=== PATIENT | male | born 1945 | race African-American/Black ===

== ENCOUNTER 2016-08-28 08:28 | Inpatient (IN) ==
[2016-08-28] MEDS ORDERED: Ondansetron 4 MG/2 ML VIAL IVP PRN (09:28)
[2016-08-28] MEDS ORDERED: ceFAZolin 1,000 MG in D5% in Water (Mini-Bag+) 100 ML IVPB ONE (09:32)
[2016-08-28 10:07] LABS: INR 1.1; Prothrombin Time 12.4 Seconds (9.4-12.1)
[2016-08-28 10:09] LABS: Activated Partial Thrombo Time 34.2 Seconds (26.0-36.0); Basophils # 0.1 K/mcL (0.0-0.2); Basophils % 0.6 %; Eosinophils # 0.3 K/mcL (0.0-0.6); Eosinophils % 2.9 %; Hematocrit 37.9 % (37.5-50.1); Hemoglobin 11.7 g/dL (12.9-16.9); Immature Granulocytes % 0.6 % (0-4); Lymphocytes # 1.5 K/mcL (0.6-4.6); Lymphocytes % 16.5 %; Mean Corpuscular HGB Conc 30.9 g/dL (31.6-35.5); Mean Corpuscular Hemoglobin 26.6 pg (28.0-33.3); Mean Corpuscular Volume 86.1 fL (83.0-100.0); Mean Platelet Volume 9.2 fL (9.4-12.4); Monocytes # 0.9 K/mcL (0.0-1.3); Monocytes % 10.4 %; Neutrophils # 6.1 K/mcL (1.6-8.9); Platelet Count 231 K/mcL (140-400)
[2016-08-28 10:18] LABS: BUN/Creatinine Ratio 23 (6-26); Blood Urea Nitrogen 19 mg/dL (8-26); Calcium 9.4 mg/dL (8.6-10.8); Carbon Dioxide 27 mEq/L (19-29); Chloride 102 mEq/L (98-109); Glucose 134 mg/dL (70-99); Osmolality,Calculated 294 (280-300); Potassium 3.7 mEq/L (3.5-4.5); Sodium 140 mEq/L (136-145); eGFR For African Americans > 60 (> 60); eGFR For Non-African Americans > 60 (> 60)
[2016-08-28] MEDS ORDERED: *HR* OxyCODONE/APAP 5/325 TABLET PO PRN (12:05)
[2016-08-28] MEDS ORDERED: *HR* OxyCODONE ER (12 HR) 10 MG TABLET PO PRN (12:05)
[2016-08-28] MEDS ORDERED: D5% in Water 1,000 ML IV PRN (12:07)
[2016-08-28] MEDS ORDERED: Dextrose Gel 15 GM PO PRN ×2 (12:07)
[2016-08-28] MEDS ORDERED: *HR* Dextrose 50 % in Water (Syg) 50 ML SYRINGE IVP PRN (12:07)
--- NOTE | 2016-08-28 12:17 | Internal Medicine Consult Note ---
<Kajal Alexander - Last Filed: 08/28/16 12:30> Date of Encounter: 08/28/16 Time of Encounter: 11:00 Internal Medicine - CN: HPI - Data of Consult Consult date: 08/28/16 Requesting Physician: Thomas Hou Jr MD - Consult Narrative Reason for consult: medical managment History of present illness: Mr. Ramirez is a 71 year old male past medical history of diabetes which is diet controlled hypertension hyperlipidemia coronary artery disease GI bleed. Patient has been experiencing numbness tingling, pain to lower extremities as well as spastic gait approximately 2 years he does use a cane to help him ambulate denies any recent falls. He was seen by Dr. Hou today results from MRI of cervical spine revealed multi level degenerative disc disease which is exacerbating congenitally narrowed cervical spinal canal. He has severe spinal cord compression C3-4 and C4-5. He is to undergo cervical fusion on Sunday and hospitalist services were consulted for medical management. Presently the patient denies any pain or discomfort he is hemodynamically stable. He does have a past history of GI bleed which seems to be stable at this time she denies any hematemesis melena or hematochezia. He also has a history of hypertension which seems to be stable at this time. He has a history of CAD with occlusions no stent placements. He denies any chest pain or shortness of breath at this time. He is at a significant risk for cardiovascular event perioperative, we will consult cardiology for their assessment prior to surgery. I reviewed his case with he agrees with the plan. - Constitutional Constitutional: weakness - Cardiovascular Cardiovascular ROS IM: as per HPI - Respiratory Respiratory: as per HPI - Gastrointestinal Gastrointestinal: as per HPI - Musculoskeletal Musculoskeletal ROS IM: muscle weakness, numbness, tingling - Neurological Neurological ROS: abnormal gait, weakness Past Med Surg Social Fam HX - Past Medical History Medical history: arthritis, coronary artery disease, GERD, GI bleed, hyperlipidemia, hypertension Psychiatric history: no psych history - Past Surgical History Surgical History: orthopedic, other - Social History Smoking Status: Never smoker Smokeless Tobacco Status: No Alcohol use: none Drug use: none - Family History Mother Living Status: Internal Medicine - CN: Meds OxyCODONE ER (12 HR) [OxyCONTIN] 10 mg PO Q12HR PRN 06/12/15 [History] Amlodipine Besylate 10 mg PO DAILY 04/02/16 [History] Atorvastatin [Lipitor] 40 mg PO HS 04/02/16 [History] Lisinopril/Hydrochlorothiazide [Zestoretic 20-12.5 mg Tablet] 2 tab PO DAILY 11/12 [History] Metoprolol XL (24 HR) Succ [Toprol Xl] 50 mg PO DAILY 04/02/16 [History] Oxycodone HCl/Acetaminophen [Percocet 5-325 mg Tablet] 1 tab PO Q6H PRN [History] Pantoprazole Sodium [Protonix] 40 mg PO Q12H #60 tablet. 04/04/16 [Rx] Sucralfate [Carafate] 1 gm PO TIDAC 30 Days 04/04/16 [Rx] Aspirin 81 mg PO DAILY 08/16/16 [History] Allergies Iodinated Contrast Media - Oral and [Iodinated Contrast Media - IV Dye] Allergy (Verified 05/17/16 12:58) Hives pravastatin Allergy (Verified 08/16/16 09:28) See Comments tachycardia pregabalin [From Lyrica] Adverse Reaction (Verified 08/16/16 09:28) See Comments strange thoughts Internal Medicine - CN: Exam - Constitutional Vitals: Pulse Resp BP Pulse Ox 83 18 150/90 94 L 08/28/16 10:00 08/28/16 10:00 08/28/16 10:00 08/28/16 10:00 General appearance IM: Present: A&O X 3 - Head Head exam: Present: atraumatic, normocephalic - Eye Eye exam: Present: EOMI, PERRL - ENT ENT exam: Present: mucous membranes moist - Respiratory Respiratory exam: Present: CTAB - Cardiovascular Cardiovascular exam IM: Present: RRR, +S1, +S2 - GI/Abdominal GI/Abdominal exam IM: Present: normal bowel sounds, soft - Neurological Exam Neurological exam: Present: alert, altered, CN II-XII intact, oriented X3 - Psychiatric Psychiatric exam: Present: flat affect Internal Medicine - CN: Reslt - Labs CBC & Chem 7: 08/28/16 09:49 08/28/16 09:49 Labs: Short CBC 08/28/16 Range/Units 09:49 WBC 8.9 (4.3-11.1) K/mcL Hgb 11.7 L (12.9-16.9) g/dL Hct 37.9 (37.5-50.1) % Plt Count 231 (140-400) K/mcL Neutrophils # 6.1 (1.6-8.9) K/mcL BMP 08/28/16 09:49 Sodium 140 Potassium 3.7 Chloride 102 Carbon Dioxide 27 BUN 19 Creatinine 0.81 Glucose 134 H Calcium 9.4 - ABG Interpretation ABG results: PT/INR, D-dimer PT 12.4 Seconds (9.4-12.1) H 08/28/16 09:49 - EKG Data EKG shows normal: sinus rhythm, ST-T waves Rate: normal - EKG Data Prior EKG available for review: yes When compared to previous EKG: there is no significant change EKG comments: 08/28/16 12:[address] Crawford- noted first degree AV block - Impressions Impressions Chest X-Ray 08/28/16 09:28 IMPRESSION: No acute process. D/ / Jc Olvera MD / Jc Olvera MD Interpreting Provider: Jc Olvera MD - Assessment and Plan (1) Spinal stenosis in cervical region Current Visit: Yes Status: Acute Assessment and plan: 1 patient has been experiencing increasing numbness tingling pain as well as spastic gait approximately 2 years- seen by Dr. Hou's increasing spinal stenosis-with spinal cord compression at C3-4 and C4-5. He is to undergo spinal surgery per Dr. Hou. We will continue with current pain medication will obtain preoperative labs chest x-ray EKG. We will consult cardiology due to history of CAD. (2) Diabetes mellitus Current Visit: Yes Status: Acute Assessment and plan: 1 patient states last A1c was 6.5 he is diet controlled at this time. 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 We will continue with beta carmina and aspirin and statin timoteo. 2 we will consult cardiology for cardiac clearance prior to surgery 3 cardiac diet 4 continue his cardiac monitoring Qualifiers: [place] vs. transplanted heart: [place] heart Qualified Code(s): I25.10 - Atherosclerotic heart disease of [place] coronary artery without angina pectoris (4) Hypertension Current Visit: No Status: Chronic Assessment and plan: 1 we will continue with metoprolol and lisinopril dose to maintain systolic less than 140 Qualifiers: Hypertension type: essential hypertension Qualified Code(s): I10 - Essential (primary) hypertension (5) DVT prophylaxis Current Visit: Yes Status: Acute Assessment and plan: [address] SCDs due to impending spinal surgery Consult Discharge Plan - Plan Referrals: Jina Redman MD [Primary Care Provider] - <Parvez Crawford - Last Filed: 08/28/16 20:54> Date of Encounter: 08/28/16 - Attending Attestation I examined this patient and my medical decision-making was reviewed with the RECORD CLERK/PA/Advanced Practice Nurse/Resident Physician. I agree with the documented findings, disposition and treatment plan as described except to the extent set forth below. Patient has severe cervical spine central canal stenosis with spinal cord compression and reports difficulty ambulating and has been going on for weeks. On exam he is in no acute distress heart regular rate and rhythm S1-S2. Muscle strength 5/5 in both upper and lower extremities. My review of his EKG shows normal sinus rhythm at 62 bpm first-degree AV block. We will consult cardiology for cardiac clearance preop. We will manage his medical conditions pre-and postoperatively. Internal Medicine - CN: HPI - Data of Consult Requesting Physician: Thomas Hou Jr MD - Consult Narrative History of present illness: Mr. Ramirez is a 71 year old male Internal Medicine - CN: Exam - Constitutional Vitals: Temp Pulse Resp BP Pulse Ox 98.1 F 89 18 155/85 96 08/28/16 20:00 08/28/16 20:00 08/28/16 20:00 08/28/16 20:00 08/28/16 20:00 Internal Medicine - CN: Reslt - Labs CBC & Chem 7: 08/28/16 09:49 08/28/16 09:49 Labs: Short CBC 08/28/16 Range/Units 09:49 WBC 8.9 (4.3-11.1) K/mcL Hgb 11.7 L (12.9-16.9) g/dL Hct 37.9 (37.5-50.1) % Plt Count 231 (140-400) K/mcL Neutrophils # 6.1 (1.6-8.9) K/mcL BMP 08/28/16 09:49 Sodium 140 Potassium 3.7 Chloride 102 Carbon Dioxide 27 BUN 19 Creatinine 0.81 Glucose 134 H Calcium 9.4 - ABG Interpretation ABG results: PT/INR, D-dimer PT 12.4 Seconds (9.4-12.1) H 08/28/16 09:49 - Impressions Impressions Chest X-Ray 08/28/16 09:28
--- NOTE | 2016-08-28 13:21 | Cardiology Consult Note ---
<Roverto Thomas - Last Filed: 08/28/16 13:55> Date of Encounter: 08/28/16 Time of Encounter: 13:16 Assessment and Plan (1) Preoperative cardiovascular examination Current Visit: Yes Status: Acute - patient evaluated for possible spinal surgery for spinal compression - multiple comorbidities including CAD, PVD, HTN, HLD, DM, and former smoker - ECHO 02/18/2015: EF 50-55%, with hypokinesis of basal inferior wall and basal- mid inferolateral wall with mild concentric LVH and diastolic dysfunction. No siginficant valvular dysfunction - Stress Nuclear 02/18/2015: large myocardial infarction throughout the inferior and inferolateral yao with mild eve-infarct ischemia - SABINA 05/24/2016: left 0.87 and right 1.22 - Report of left heart catheterization 07/26/[address] Garcia ([facility]) with 3V CAD with an occluded RCA and occluded LCX with collateral formation and failed PCI attempt of the LCX FRAMING CONSULTANT - EKG is normal sinus revealing artial enlargement without ischemic changes - patient is cleared for surgery (2) CAD (coronary artery disease), [place] coronary artery Current Visit: No Status: Acute - LHC performed [address] Garcia ([facility] bill peddler) with 3V CAD with an occluded RCA and occluded LCX with collateral formation and failed PCI attempt of the LCX FRAMING CONSULTANT - patient denies chest pain at rest or with exertion however severely limited due to claudication and spinal cord compression Qualifiers: [place] vs. transplanted heart: [place] heart Associated angina: angina presence unspecified Qualified Code(s): I25.10 - Atherosclerotic heart disease of [place] coronary artery without angina pectoris (3) Peripheral vascular disease Current Visit: Yes Status: Acute - SABINA 05/24/2016: left 0.87 and right 1.22 - follow up as discussed Discussion w patient/family: The assessment and plan as outlined above was discussed with the patient and/or family members who expressed understanding and agreement. All questions were answered. Thank you for involving us in the care of your patient. Please call with any questions. History of Present Illness Consult date: 08/28/16 Requesting physician: Kajal Alexander Consult reason: Surgical preop Chief complaint: spinal cord compression History of present illness: Mr. Ramirez is a 71 year old male with past medical history of hypertension, hyperlipidemia, diabetes (diet controlled), former smoker (quit 13 years ago), PVD, and CAD without stents presents with leg weakness and numbness. Has a scheduled spinal surgery on SundayAug.30 and cardiology was consulted for surgical clearance. Patient has known CAD without stents per report obtained from [facility] Dr. Garcia. He denies any chest discomfort, chest tightness, or shortness of breath at rest or on exertion. He has limited physical activity secondary to spinal cord compression and claudication. He reports compliance with medications. Recent endoscopy without complications earlier this year 2017 without difficulties. Important cardiopulmonary tests: ECHO 02/18/2015: EF 50-55%, with hypokinesis of basal inferior wall and basal- mid inferolateral wall with mild concentric LVH and diastolic dysfunction. No siginficant valvular dysfunction Stress Nuclear 02/18/2015: large myocardial infarction throughout the inferior and inferolateral yao with mild eve-infarct ischemia SABINA 05/24/2016: left 0.87 and right 1.22 Report of left heart catheterization 07/26/[address] Garcia ( [facility]) with 3V CAD with an occluded RCA and occluded LCX with collateral formation and failed PCI attempt of the LCX FRAMING CONSULTANT EKG is normal sinus revealing artial enlargement without ischemic changes Past Med Surg Social Fam HX - Past Medical History Medical history: arthritis, coronary artery disease, GERD, GI bleed, hyperlipidemia, hypertension Psychiatric history: no psych history - Past Surgical History Surgical History: orthopedic, other - Social History Smoking Status: Never smoker Smokeless Tobacco Status: No Alcohol use: none Drug use: none - Family History Mother Living Status: Medications and Allergies OxyCODONE ER (12 HR) [OxyCONTIN] 10 mg PO Q12HR PRN 06/12/15 [History] Amlodipine Besylate 10 mg PO DAILY 04/02/16 [History] Atorvastatin [Lipitor] 40 mg PO HS 04/02/16 [History] Lisinopril/Hydrochlorothiazide [Zestoretic 20-12.5 mg Tablet] 2 tab PO DAILY 11/12 [History] Metoprolol XL (24 HR) Succ [Toprol Xl] 50 mg PO DAILY 04/02/16 [History] Oxycodone HCl/Acetaminophen [Percocet 5-325 mg Tablet] 1 tab PO Q6H PRN [History] Pantoprazole Sodium [Protonix] 40 mg PO Q12H #60 tablet. 04/04/16 [Rx] Sucralfate [Carafate] 1 gm PO TIDAC 30 Days 04/04/16 [Rx] Aspirin 81 mg PO DAILY 08/16/16 [History] Allergies Iodinated Contrast Media - Oral and [Iodinated Contrast Media - IV Dye] Allergy (Verified 05/17/16 12:58) Hives pravastatin Allergy (Verified 08/16/16 09:28) See Comments tachycardia pregabalin [From Lyrica] Adverse Reaction (Verified 08/16/16 09:28) See Comments strange thoughts All Systems Review: A 10-system review of systems was performed and is negative for pertinent findings except as documented above in the HPI. - Cardiovascular Cardiovascular: claudication, no chest pain at rest, no chest pain with exertion , no dyspnea at rest, no dyspnea on exertion, no leg edema, no lightheadedness, no syncope - Respiratory Respiratory: no cough - Gastrointestinal Gastrointestinal: no abdominal pain, no dysphagia - Genitourinary Genitourinary: no dysuria - Musculoskeletal Musculoskeletal: abnormal gait, back pain, muscle cramps - Neurological Neurological: no dizziness, no syncope Physical Examination Vital Signs, Last 4 Hours Pulse Resp BP Pulse Ox 08/28/16 10:00 83 18 150/90 94 L General: Conversant, No Apparent Distress HEENT: Atraumatic, Normocephaly, Mucus Membranes Moist Neck: No JVD, Normal carotid pulses Cardiac: Reg Rate and Rhythm, Normal S1 and S2, No Murmur Lungs: Normal Breath Sounds, No Wheeze, Rales, Rhonchi Neuro: Alert and responsive, No focal deficits noted Skin: No rashes noted on visualized skin Musculoskeletal: No Chest Wall Tenderness Extremities: No Clubbing, No Cyanosis, No Edema, Normal Pulses Results 08/28/16 09:49 08/28/16 09:49 Lab Results 08/28/16 08/28/16 08/28/16 09:49 09:49 09:49 WBC 8.9 Hgb 11.7 L Hct 37.9 Plt Count 231 INR 1.1 APTT 34.2 Sodium 140 Potassium 3.7 Chloride 102 Carbon Dioxide 27 BUN 19 Creatinine 0.81 Glucose 134 H Calcium 9.4 - Imaging and Cardiology Stress Test: report reviewed Echo: report reviewed Cardiac cath: report reviewed ([facility]) - EKG Interpretation EKG results cardiology: personally reviewed, normal ECG, sinus rhythm, no diagnostic ischemia Consult Discharge Plan - Plan Referrals: Jina Redman MD [Primary Care Provider] - <Elder Aguayo G - Last Filed: 08/28/16 14:00> Date of Encounter: 08/28/16 Assessment and Plan Discussion w patient/family: The assessment and plan as outlined above was discussed with the patient and/or family members who expressed understanding and agreement. All questions were answered. Thank you for involving us in the care of your patient. Please call with any questions. History of Present Illness History of present illness: Mr. Ramirez is a 71 year old male All Systems Review: A 10-system review of systems was performed and is negative for pertinent findings except as documented above in the HPI. Physical Examination Vital Signs, Last 4 Hours Pulse Resp BP Pulse Ox 08/28/16 10:00 83 18 150/90 94 L Results 08/28/16 09:49 08/28/16 09:49 Lab Results 08/28/16 08/28/16 08/28/16 09:49 09:49 09:49 WBC 8.9 Hgb 11.7 L Hct 37.9 Plt Count 231 INR 1.1 APTT 34.2 Sodium 140 Potassium 3.7 Chloride 102 Carbon Dioxide 27 BUN 19 Creatinine 0.81 Glucose 134 H Calcium 9.4 - Attending Attestation I examined this patient and my medical decision-making was reviewed with the INSIDE CONTRACTOR SALES/PA/Advanced Practice Nurse/Resident Physician. I agree with the documented findings, disposition and treatment plan as described except to the extent set forth below. Asked to see pt for pre op clearance for back surgery Pt has a hx of CAD; being treated medically. AT present denies any cp, sob, .vss no carotid bruit Lungs: clear to ascultation percussion CVS: rrr , no murmurs gallops , rubs Ext warm, mildly reduced pulsation EKG reviewed by me does not show any acute changes Plans: ok for surgery from a CV standpoint see resident note for detials Thanks
[2016-08-28] MEDS: Ringers Solution, Lactated 1,000 ML IVC SCH (14:40)
[2016-08-28] MEDS: *HR* OxyCODONE Immed Rel 5 MG TABLET PO PRN ×2 (14:45→19:08)
--- NOTE | 2016-08-28 15:19 | Spine - History & Physical Rep ---
Date of Encounter: 08/28/16 Time of Encounter: 15:16 Assessment and Plan (1) Spinal cord compression Current visit: Yes Status: Chronic On physical examination he is afebrile vital signs are stable. He has a spastic gait pattern and uses a cane as an ambulatory aid. He has a positive Alice sign. He has positive inverted radial reflex. He has clonus. He is able to fire all upper and lower extremity motor groups. His hips move symmetrically. MRI of the cervical spine reveals multilevel degenerative changes and severe stenosis C3-C7. There is spinal cord atrophy in the mid cervical spine as well as myelomalacia. There is straightening of the normal cervical lordosis. Impression: 1) Cervical spinal cord compression 2) Cervical Myelopathy 3) Cervical cord Myelomalacia Plan: The patient will be admitted for definitive management. This will be in the form of a posterior cervical decompression and fusion C3-C7. This is necessary due to the likelihood of progressive neurologic deficit. Risks benefits possible complications and alternatives were fully discussed with the patient. The patient would like to proceed. However, medical optimization and clearance measures will need to be performed. (2) Cervical myelopathy Current visit: Yes Status: Chronic (3) Myelomalacia Current visit: Yes Status: Chronic History of Present Illness Chief complaint: difficulty walking, difficulty controlling hands, pack pain HPI: Mr. Ramirez is a 71 year old male who has a two-year history of slowly progressing gait impairment. Over the past year he has had to use a cane in order to ambulate. Per the he has had increasing spasticity. He has difficulty controlling his hands and impairment of fine motor movements in the upper extremities. For example he can no longer button his shirts. He was seen by a equipment installer who ordered a cervical spine examination. This revealed severe spinal cord compression and stenosis. Due to his progressive neurologic decline he is admitted for definitive management. Past Med Surg Social Fam HX - Past Medical History Medical history: arthritis, coronary artery disease, GERD, GI bleed, hyperlipidemia, hypertension Psychiatric history: no psych history - Past Surgical History Surgical History: orthopedic, other - Social History Smoking Status: Never smoker Smokeless Tobacco Status: No Alcohol use: none Drug use: none - Family History Mother Living Status: Medications and Allergies OxyCODONE ER (12 HR) [OxyCONTIN] 10 mg PO Q12HR PRN 06/12/15 [History] Amlodipine Besylate 10 mg PO DAILY 04/02/16 [History] Atorvastatin [Lipitor] 40 mg PO HS 04/02/16 [History] Lisinopril/Hydrochlorothiazide [Zestoretic 20-12.5 mg Tablet] 2 tab PO DAILY 11/12 [History] Metoprolol XL (24 HR) Succ [Toprol Xl] 50 mg PO DAILY 04/02/16 [History] Oxycodone HCl/Acetaminophen [Percocet 5-325 mg Tablet] 1 tab PO Q6H PRN [History] Pantoprazole Sodium [Protonix] 40 mg PO Q12H #60 tablet. 04/04/16 [Rx] Sucralfate [Carafate] 1 gm PO TIDAC 30 Days 04/04/16 [Rx] Aspirin 81 mg PO DAILY 08/16/16 [History] Allergies Iodinated Contrast Media - Oral and [Iodinated Contrast Media - IV Dye] Allergy (Verified 05/17/16 12:58) Hives pravastatin Allergy (Verified 08/16/16 09:28) See Comments tachycardia pregabalin [From Lyrica] Adverse Reaction (Verified 08/16/16 09:28) See Comments strange thoughts Results - Labs Result Diagrams: 08/28/16 09:49 08/28/16 09:49 Labs: Abnormal lab results Hgb 11.7 g/dL (12.9-16.9) L 08/28/16 09:49 MCH 26.6 pg (28.0-33.3) L 08/28/16 09:49 MCHC 30.9 g/dL (31.6-35.5) L 08/28/16 09:49 RDW 15.0 % (11.5-14.5) H 08/28/16 09:49 MPV 9.2 fL (9.4-12.4) L 08/28/16 09:49 PT 12.4 Seconds (9.4-12.1) H 08/28/16 09:49 Glucose 134 mg/dL (70-99) H 08/28/16 09:49 H & H 08/28/16 Range/Units 09:49 Hgb 11.7 L (12.9-16.9) g/dL Hct 37.9 (37.5-50.1) % All other labs normal. - VTE Documentation of Mechanical Device: Intermittent pneumatic compression device
[2016-08-28] MEDS ORDERED: Temazepam 15 MG CAPSULE PO PRN (15:35)
[2016-08-28] MEDS: Insulin LISPRO 300 UNITS/3 ML VIAL SQ SCH ×2 (17:21→21:00)
[2016-08-28] MEDS: *HR* OxyCODONE ER (12 HR) 10 MG TABLET PO SCH (22:18)
[2016-08-29] MEDS: Ringers Solution, Lactated 1,000 ML IVC SCH ×3 (00:53→22:35)
[2016-08-29] MEDS: *HR* Morphine 2 MG/ML SYRINGE IVP PRN ×5 (00:57→20:46)
[2016-08-29] MEDS: Insulin LISPRO 300 UNITS/3 ML VIAL SQ SCH ×4 (07:38→20:46)
[2016-08-29] MEDS: Metoprolol XL (24 HR) Succ 50 MG TAB.ER.24H PO SCH (07:52)
[2016-08-29] MEDS ORDERED: Lisinopril-HCTZ 20-12.5mg TABLET PO SCH (09:00)
[2016-08-29] MEDS ORDERED: amLODIPine 5 MG TABLET PO SCH (09:00)
[2016-08-29] MEDS ORDERED: Aspirin 81 MG TAB.CHEW PO SCH (09:00)
[2016-08-29] MEDS: *HR* OxyCODONE ER (12 HR) 10 MG TABLET PO SCH ×2 (10:15→22:35)
--- NOTE | 2016-08-29 10:15 | Internal Med Progress Note ---
Date of Encounter: 08/29/16 Time of Encounter: 09:10 - Assessment and plan (1) Spinal stenosis in cervical region Current Visit: Yes Status: Acute Assessment and plan: With cord compression. Awaiting surgery planned for tomorrow. Continue supportive care in the meantime. High risk for complications from this condition (2) Spinal cord compression Current Visit: Yes Status: Chronic Assessment and plan: Spine surgery following. 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 transplanted heart: [place] heart Associated angina: angina presence unspecified Qualified Code(s): I25.10 - Atherosclerotic heart disease of [place] coronary artery without angina pectoris (6) Hypertension Current Visit: No Status: Chronic Assessment and plan: Blood pressure is elevated today. On lisinopril, amlodipine, hydrochlorothiazide and metoprolol. Will monitor blood pressure. We will use intravenous medications if blood pressure remains consistently high at greater than 160 mm Hg systolic. Qualifiers: Hypertension type: essential hypertension Qualified Code(s): I10 - Essential (primary) hypertension (7) Cervical myelopathy Current Visit: Yes Status: Chronic (8) Myelomalacia Current Visit: Yes Status: Chronic - Subjective Interval history: Patient complains of low back pain. Otherwise doing all right. Denies any new pain or weakness. No nausea or vomiting. He is scheduled to undergo spot cervical spine fusion tomorrow. - Constitutional Vitals: Temp Pulse Resp BP Pulse Ox 97.9 F 75 20 186/92 97 08/29/16 06:36 08/29/16 06:36 08/29/16 06:36 08/29/16 06:36 08/29/16 06:36 General appearance: Present: cooperative, mild distress, A&O X 3, pleasant, answers questions appropriately - Neck Neck exam general surgery: Present: supple, trachea midline. Absent: lymphadenopathy - Respiratory Respiratory exam: Present: CTAB. Absent: accessory muscle use, rales, rhonchi, wheezes - Cardiovascular Cardiovascular exam: Present: RRR, +S1, +S2. Absent: diastolic murmur, gallop, rubs, systolic murmur - GI/Abdominal GI/Abdominal exam: Present: normal bowel sounds, soft, no peritoneal signs. Absent: distended, tenderness - Extremities Exam Extremities exam: Present: warm, radial pulses palpable and symetrical. Absent : calf tenderness, cyanotic, pedal edema Internal Medicine: Result - Labs CBC & Chem 7: 08/28/16 09:49 08/28/16 09:49 Labs: BMP 08/28/16 09:49 Sodium 140 Potassium 3.7 Chloride 102 Carbon Dioxide 27 BUN 19 Creatinine 0.81 Glucose 134 H Calcium 9.4 - ABG Interpretation ABG results: PT/INR, D-dimer PT 12.4 Seconds (9.4-12.1) H 08/28/16 09:49 - Impressions Impressions Chest X-Ray 08/28/16 09:28 IMPRESSION: No acute process. D/ / Jc Olvera MD / Jc Olvera MD Interpreting Provider: Jc Olvera MD - VTE Reasons for not Prescribing Prophylaxis: Treatment not Indicated - Low risk for VTE Documentation of Mechanical Device: Intermittent pneumatic compression device Consult Discharge Plan - Plan Referrals: Jina Redman MD [Primary Care Provider] - - Attending Attestation This document has been at least partially created by [employer] recognition technology by Dr. Erickson. Errors in grammar, wording or other phrases may exist. If errors are found after the documentation is signed, they will be addressed individually in the addendum section of this document when appropriate.
--- NOTE | 2016-08-29 19:19 | Anesthesia Evaluation PreOp ---
Date of Encounter: 08/29/16 Time of Encounter: 19:18 - Past History Planned Operation: C3-7 Posterior Cervical Decompression Cardiac History: Denies any Significant Hx ("Cleared/Optimized" per [facility] 08/28/16), [place] (01/2015), HTN (maintained on Lisinopril-Hctz, Metoprolol , Norvasc), Hyperlipidemia (maintained on Atorvastatin [Lipitor]), Other (PVD, ECHO 02/18/15 - LVEF 50-55% w/hypokinesis of basal inferior wall and basal=mid inferolateral wall, mild concentric LVH and diastolic dysfx. NUCLEAR STRESS 02/18 - Large [place] throughout inferior & inferolateral wall w/eve-infarct ischemia. 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: Other (Cervical spinal cord compression/Myelomalacia, Cervical Myelopathy,) Other Medical History: Diabetes Type II (diet controlled), GERD (Hx GIB maintained on Sucralfate & Protonix) Anesthesia History: Past Anesthesia Alcohol Use: none Drug use: none Medications and Allergies OxyCODONE ER (12 HR) [OxyCONTIN] 10 mg PO Q12HR PRN 06/12/15 [History] Amlodipine Besylate 10 mg PO DAILY 04/02/16 [History] Atorvastatin [Lipitor] 40 mg PO HS 04/02/16 [History] Lisinopril/Hydrochlorothiazide [Zestoretic 20-12.5 mg Tablet] 2 tab PO DAILY 11/12 [History] Metoprolol XL (24 HR) Succ [Toprol Xl] 50 mg PO DAILY 04/02/16 [History] Oxycodone HCl/Acetaminophen [Percocet 5-325 mg Tablet] 1 tab PO Q6H PRN [History] Pantoprazole Sodium [Protonix] 40 mg PO Q12H #60 tablet. 04/04/16 [Rx] Sucralfate [Carafate] 1 gm PO TIDAC 30 Days 04/04/16 [Rx] Aspirin 81 mg PO DAILY 08/16/16 [History] Allergies Iodinated Contrast Media - Oral and [Iodinated Contrast Media - IV Dye] Allergy (Verified 05/17/16 12:58) Hives pravastatin Allergy (Verified 08/16/16 09:28) See Comments tachycardia pregabalin [From Lyrica] Adverse Reaction (Verified 08/16/16 09:28) See Comments strange thoughts - Meds/Allergy Pre-op Review Medications Reviewed: Yes Allergies Reviewed: Yes Beta Blockers on Current Med List: Yes (Metoprolol) If Beta Blockers taken, Date/Time (Last Dose taken): 08/29/16 @ 11:27 Anesthesia Results - Labs 08/28/16 09:49 08/28/16 09:49 Laboratory Tests 08/13/16 08/28/16 08/28/16 13:07 09:49 09:49 PT 12.4 H INR 1.1 APTT 34.2 Est GFR (Non-Af Amer) > 60 Est Mean Plasma Glucose 157 Hemoglobin A1c 7.1 H Laboratory Results Impressions Chest X-Ray 08/28/16 09:28 IMPRESSION: No acute process. D/ / Jc Olvera MD / Jc Olvera MD Interpreting Provider: Jc Olvera MD - Imaging EKG: report reviewed (NSR, atraial enlargement, without ischemic changes) Anesthesia Exam Vital Signs Temp Pulse Resp BP Pulse Ox 08/29/16 15:16 98.3 F 75 20 161/89 96 08/29/16 11:05 98.6 F 78 18 157/87 98 08/29/16 06:36 97.9 F 75 20 186/92 97 08/29/16 04:00 98.4 F 72 19 118/76 99 08/29/16 00:00 98.0 F 85 17 151/83 96 08/28/16 20:00 98.1 F 89 18 155/85 96 Intake and Output 08/29/16 08/29/16 08/29/16 07:59 15:59 23:59 Intake Total 1350 / 1350 1100 / 1100 120 / 120 Output Total 1280 / 1280 Balance 70 / 70 1100 / 1100 120 / 120 Intake: IV Fluids 1000 / 1000 1000 / 1000 Lactated Ringers 1,000 ML 1000 / 1000 1000 / 1000 @ 100 mls/hr IVC .Q10H CHICA Rx#:[id number] Oral 350 / 350 100 / 100 120 / 120 Output: Urine 1280 / 1280 Other: Meal Lunch Dinner Percent of Meal Consumed 100% 100% # Voids 1 Blood Glucose* 139 232 159 Height: 5'11" Weight: 246# BMI = 34.3 NPO (# of Hours): MNoc - HEENT Pupil (Motor): Pupils equal, EOMI Mallampati: II Teeth: Normal Oral Opening: Greater than 3 - 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 ADVANCED 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 ASSOCIATE Motor: Deficit RUE (Difficulty w/ fine motor movements BUE), Deficit LUE, Deficit RLE ("Spastic Gait (per H&P), utilizes cane for ambulation), Deficit LLE - Cardiac Rhythm: Regular Murmur: None - Pulmonary Breath Sounds: bilateral Clear Respiratory Effort: Symmetrical Anesthesia Assess/Plan ASA Score: 3 (HTN, Chol, CAD, PVD, DM, Obesity) Modified [place] Scale for Level of Consciousness: Cooperative, oriented, and tranquil Anesthetic Plan: General Monitoring Plan: Standard Monitors Recovery Plan: PACU Anes Supervising Prov Stmt: Pt seen/evaluated, R&B discussed, questions answered and consent obtained. Mary Jane Rouse MD
--- NOTE | 2016-08-29 20:59 | Electrocardiograph Report ---
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
[2016-08-30] MEDS: *HR* Morphine 2 MG/ML SYRINGE IVP PRN (05:38)
[2016-08-30 06:38] LABS: Basophils % 0.4 %; Eosinophils # 0.2 K/mcL (0.0-0.6); Hematocrit 40.4 % (37.5-50.1); Hemoglobin 12.8 g/dL (12.9-16.9); Immature Granulocytes % 0.7 % (0-4); Lymphocytes # 1.2 K/mcL (0.6-4.6); Lymphocytes % 11.2 %; Mean Corpuscular HGB Conc 31.7 g/dL (31.6-35.5); Mean Corpuscular Hemoglobin 26.7 pg (28.0-33.3); Mean Corpuscular Volume 84.2 fL (83.0-100.0); Mean Platelet Volume 9.4 fL (9.4-12.4); Monocytes % 9.3 %; Neutrophils # 8.2 K/mcL (1.6-8.9); Platelet Count 256 K/mcL (140-400); Red Cell Distribution Width 14.7 % (11.5-14.5); Segmented Neutrophils % 76.4 %
[2016-08-30] MEDS: Metoprolol XL (24 HR) Succ 50 MG TAB.ER.24H PO SCH (06:39)
[2016-08-30] MEDS ORDERED: Lidocaine -MPF 2% 2 ML VIAL ONE ×2 (06:55→12:51)
[2016-08-30] MEDS ORDERED: *HR* Succinylcholine 200 MG/10 ML VIAL IVP ONE (06:55)
[2016-08-30 06:56] LABS: BUN/Creatinine Ratio 18 (6-26); Blood Urea Nitrogen 14 mg/dL (8-26); Calcium 9.4 mg/dL (8.6-10.8); Carbon Dioxide 26 mEq/L (19-29); Chloride 102 mEq/L (98-109); Glucose 145 mg/dL (70-99); Osmolality,Calculated 295 (280-300); Potassium 3.2 mEq/L (3.5-4.5); Sodium 141 mEq/L (136-145); eGFR For African Americans > 60 (> 60); eGFR For Non-African Americans > 60 (> 60)
[2016-08-30] MEDS ORDERED: *HR* Midazolam HCl 2 MG/2 ML VIAL ONE (06:56)
[2016-08-30] MEDS ORDERED: *HR* FentaNYL (PF) 100 MCG/2 ML VIAL ONE ×2 (06:56→08:59)
[2016-08-30] MEDS ORDERED: *HR* Propofol 200 MG/20 ML VIAL IVP ONE ×5 (06:56→13:06)
[2016-08-30] MEDS ORDERED: Heparin 1,000 UNITS/500 mL NS 500 ML ONE (07:02)
[2016-08-30] MEDS ORDERED: Lidocaine -MPF 4% 5 ML AMPUL ONE (07:04)
[2016-08-30] MEDS ORDERED: Propofol 500 MG/50 ML INFUS..BTL ONE ×3 (07:13→10:39)
[2016-08-30] MEDS ORDERED: *HR* Remifentanil 1 MG VIAL IVP ONE (07:14)
[2016-08-30] MEDS ORDERED: Bacitracin/PolymyxinB OINT 14.17 GM TUBE TP ONE (07:25)
[2016-08-30] MEDS ORDERED: *HR* Heparin 5,000 UNIT/ML VIAL ONE (08:06)
[2016-08-30] MEDS ORDERED: EPHEDrine 50 MG/ML VIAL ONE ×2 (08:48→14:21)
[2016-08-30] MEDS ORDERED: Ketamine *HR* 500 MG/10 ML MDV ONE (08:49)
[2016-08-30] MEDS ORDERED: ceFAZolin 1,000 MG in D5% in Water (Mini-Bag+) 100 ML IVPB ONE (10:00)
[2016-08-30] MEDS ORDERED: *HR* Morphine 2 MG/ML SYRINGE IVP PRN ×3 (10:52→21:46)
[2016-08-30] MEDS ORDERED: *HR* HYDROmorphone 2 MG/ML SYRINGE ONE (12:36)
[2016-08-30] MEDS ORDERED: Ondansetron 4 MG/2 ML VIAL ONE (12:50)
[2016-08-30] MEDS ORDERED: *HR* Morphine 10 MG/ML VIAL ONE (13:05)
--- NOTE | 2016-08-30 13:27 | Orthopedic Operative Note ---
Date of procedure: 08/30/16 Pre-op diagnosis: spinal cord compression, cervical myelopathy, myelomalacia Post-op diagnosis: same Operation/Findings: Posterior cervical decompression and fusion C3-C7: Patient was brought to the operative theater where he successfully underwent general endotracheal intubation. He was given antibiotics prior to the start of the procedure. Compression boots and stockings were used for deep vein thrombosis prophylaxis. A Pike catheter was placed. Leads were placed on the upper extremities and lower extremities as well as the cranium. The neurologic monitoring personnel confirmed satisfactory readings prior to the start of the procedure. The patient was turned prone on the operative table using a Mckeon head rest. The area from the mid occipital to the mid thoracic spine was prepped and draped in the usual sterile fashion posteriorly. An incision was made and centered over the C3-C7 cervical spinous processes in the midline. The scoring incision was deepened through the cervical fascia. We used Bovie cautery and Waterman elevators to carefully dissect the lateral masses and expose them from C3- C7. Radiographic confirmation was confirmed by the radiologist via a discussion. We then placed lateral mass screws at C3, C4, C5, C6, and C7 bilaterally using standard techniques. en separate 3.5 x 12 mm lateral mass screws were placed uneventfully and confirmed via fluorographic views as having satisfactory placement. After placement of the lateral mass screws, we turned our attention to the decompression. We removed the ligamentum flavum and interspinous and supraspinous ligaments at C6-7. We proceeded proximally with the decompression. This includes a laminectomy of C6, C5, C4, and C3. All intervening ligamentum flavum and ligamentous material was removed. Bone obtained from the laminectomies was saved in a separate sterile container for later use. After the decompression, the spinal cord could be clearly visualized from C3-C7 and was fully decompressed. It was seen to expand nicely. We copiously irrigated the wound. We then decorticated the facet joints and lateral masses from C3-4, C4-5, C5-6, and C6-7 bilaterally until bleeding bone was obtained. We then used the autograft bone obtained from the laminectomy/decompression from C3-C7 and placed it over the lateral masses and facet joints in these regions. We then placed rods within the screw heads from C3-C7 bilaterally. We subsequently placed screw caps over the Rods and locked and finally tightened the construct in standard fashion. We then closed the wound in layers with 1 Vicryl for the Fascia, 2-0 Vicryl for the more superficial fascia and 2-0 Vicryl was used for skin closure. Dermabond was paced over the wound. Sterile dressing was placed over the wound as well. Cervical collar was placed. Patient was turned supine and extubated on the Hospital Bed. The patient was in good condition at the end of the procedure. All sponge counts, needle counts, and Instruments were correct at the end of the procedure. Anesthesia: GETA Surgeon: Thomas Hou Jr Estimated blood loss (cc): 300 Condition: stable Disposition: PACU
[2016-08-30] MEDS: *HR* HYDROmorphone (PF) 1 MG/ML SYRINGE IVP PRN ×8 (13:37→21:18)
[2016-08-30] MEDS ORDERED: Ringers Solution, Lactated 1,000 ML IVC SCH (15:09)
[2016-08-30] MEDS ORDERED: Temazepam 15 MG CAPSULE PO PRN (15:09)
[2016-08-30] MEDS ORDERED: Ondansetron 4 MG/2 ML VIAL IVP PRN (15:09)
[2016-08-30] MEDS ORDERED: *HR* HYDROmorphone (PF) 1 MG/ML SYRINGE IVP PRN (15:09)
[2016-08-30] MEDS ORDERED: Ringers Solution, Lactated 1,000 ML ONE (15:29)
--- NOTE | 2016-08-30 15:36 | Internal Med Progress Note ---
Date of Encounter: 08/30/16 Time of Encounter: 15:36 - Assessment and plan (1) Spinal stenosis in cervical region Current Visit: Yes Status: Acute Assessment and plan: Status post cervical spine fusion surgery. We will increase pain medications to control pain better. Monitor vital signs closely. At high risk for complications due to use of intravenous narcotic medications. 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 No chest pain Qualifiers: [place] vs. transplanted heart: [place] heart Associated angina: angina presence unspecified Qualified Code(s): I25.10 - Atherosclerotic heart disease of [place] coronary artery without angina pectoris (6) Hypertension Current Visit: No Status: Chronic Assessment and plan: Blood pressure elevated at this time. Likely from pain. We will continue to monitor. We will use intravenous antihypertensives if blood pressure remains uncontrolled Qualifiers: Hypertension type: essential hypertension Qualified Code(s): I10 - Essential (primary) hypertension (7) Cervical myelopathy Current Visit: Yes Status: Chronic (8) Myelomalacia Current Visit: Yes Status: Chronic - Subjective Interval history: Patient having severe neck pain. He just underwent cervical fusion surgery this morning. Pain 10 out of 10 in severity. No other complaints at this time. - Constitutional Vitals: Temp Pulse Resp BP Pulse Ox 97.7 F 80 14 167/95 95 08/30/16 14:55 08/30/16 14:55 08/30/16 14:55 08/30/16 14:55 08/30/16 14:55 General appearance: Present: cooperative, mild distress, A&O X 3, pleasant, answers questions appropriately - Respiratory Respiratory exam: Present: CTAB. Absent: accessory muscle use, rales, rhonchi, wheezes - GI/Abdominal GI/Abdominal exam: Present: normal bowel sounds, soft, no peritoneal signs. Absent: distended, tenderness - Extremities Exam Extremities exam: Present: warm, radial pulses palpable and symetrical. Absent : calf tenderness, cyanotic, pedal edema - Neurological Exam Neurological exam: Present: alert. Absent: facial droop, speech deficit - Skin Skin exam: Present: dry, intact Internal Medicine: Result - Labs CBC & Chem 7: 08/30/16 06:09 08/30/16 06:09 Labs: Short CBC 08/30/16 Range/Units 06:09 WBC 10.7 (4.3-11.1) K/mcL Hgb 12.8 L (12.9-16.9) g/dL Hct 40.4 (37.5-50.1) % Plt Count 256 (140-400) K/mcL Neutrophils # 8.2 (1.6-8.9) K/mcL BMP 08/30/16 06:09 Sodium 141 Potassium 3.2 L Chloride 102 Carbon Dioxide 26 BUN 14 Creatinine 0.76 Glucose 145 H Calcium 9.4 - ABG Interpretation ABG results: PT/INR, D-dimer PT 12.4 Seconds (9.4-12.1) H 08/28/16 09:49 - Impressions Impressions Cervical Spine X-Ray 08/30/16 00:00 IMPRESSION: Status post posterior fusion at C3 through C7. No obvious complication on single frontal view. D/ / 08/30/2016 13:28:03 Lisa Hopson MD / [facility] Interpreting Provider: Lisa Hopson MD Fluoroscopy 08/30/16 00:00 IMPRESSION: Intraprocedural fluoroscopic spot images as above. See separate procedure report for more information. D/ / Jing Lara MD / Jing Lara MD Interpreting Provider: Jing Lara MD - VTE Reasons for not Prescribing Prophylaxis: Treatment not Indicated - Low risk for VTE Documentation of Mechanical Device: Intermittent pneumatic compression device Consult Discharge Plan - Plan Referrals: Jr Michel DO [Partnered Physician] - 09/04/16 8:00 am Jina Redman MD [Primary Care Provider] - 09/12/16 10:45 am Braden Ramos MD [Partnered Physician] - 10/16/16 3:10 pm - Attending Attestation This document has been at least partially created by [employer] recognition technology by Dr. Erickson. Errors in grammar, wording or other phrases may exist. If errors are found after the documentation is signed, they will be addressed individually in the addendum section of this document when appropriate.
[2016-08-30] MEDS ORDERED: ceFAZolin 1,000 MG in D5% in Water (Mini-Bag+) 100 ML IVPB SCH (16:00)
[2016-08-30] MEDS: Insulin LISPRO 300 UNITS/3 ML VIAL SQ SCH ×2 (16:39→21:21)
[2016-08-30] MEDS ORDERED: *HR* Labetalol 20 MG/4 ML SYRINGE IVP PRN (19:02)
[2016-08-30] MEDS ORDERED: *HR* OxyCODONE ER (12 HR) 10 MG TABLET PO SCH (22:00)
[2016-08-30] MEDS: ceFAZolin 1,000 MG in D5% in Water (Mini-Bag+) 100 ML IVPB SCH (22:25)
[2016-08-31] MEDS ORDERED: *HR* OxyCODONE/APAP 5/325 TABLET PO SCH
[2016-08-31] MEDS ORDERED: Acetaminophen 325 MG TABLET PO PRN (03:53)
[2016-08-31] MEDS ORDERED: *HR* OxyCODONE ER (12 HR) 10 MG TABLET PO SCH (04:00)
[2016-08-31] MEDS: Ketorolac 15 MG/ML VIAL IVP PRN ×3 (04:22→22:56)
[2016-08-31] MEDS: *HR* OxyCODONE ER (12 HR) 10 MG TABLET PO SCH ×2 (04:22→16:18)
[2016-08-31] MEDS: Baclofen 10 MG TABLET PO SCH ×4 (04:22→20:23)
[2016-08-31] MEDS: *HR* HYDROmorphone (PF) 1 MG/ML SYRINGE IVP PRN ×5 (06:04→20:22)
[2016-08-31] MEDS: ceFAZolin 1,000 MG in D5% in Water (Mini-Bag+) 100 ML IVPB SCH (06:06)
[2016-08-31] MEDS: Lisinopril-HCTZ 20-12.5mg TABLET PO SCH (08:05)
[2016-08-31] MEDS: amLODIPine 5 MG TABLET PO SCH (08:06)
[2016-08-31] MEDS: Celecoxib 200 MG CAPSULE PO SCH ×2 (08:06→20:23)
[2016-08-31] MEDS: Aspirin 81 MG TAB.CHEW PO SCH (08:06)
[2016-08-31] MEDS: Insulin LISPRO 300 UNITS/3 ML VIAL SQ SCH ×4 (08:08→20:29)
[2016-08-31] MEDS ORDERED: Celecoxib 200 MG CAPSULE PO SCH (09:00)
[2016-08-31] MEDS ORDERED: Metoprolol XL (24 HR) Succ 50 MG TAB.ER.24H PO SCH ×2 (09:00→11:22)
[2016-08-31] MEDS: *HR* OxyCODONE Immed Rel 5 MG TABLET PO PRN ×3 (09:46→22:56)
--- NOTE | 2016-08-31 11:21 | Internal Med Progress Note ---
Date of Encounter: 08/31/16 Time of Encounter: 10:50 - Assessment and plan (1) Spinal stenosis in cervical region Current Visit: Yes Status: Acute Assessment and plan: Status post cervical spinal fusion. Pain not controlled. We will increase Dilaudid to 2 mg every couple of hours to control pain better. Patient is at high risk for complications due to use of intravenous narcotic medications. 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 transplanted heart: [place] heart Associated angina: angina presence unspecified Qualified Code(s): I25.10 - Atherosclerotic heart disease of [place] coronary artery without angina pectoris (5) Hypertension Current Visit: No Status: Chronic Assessment and plan: Uncontrolled. On intravenous hydralazine and labetalol when necessary. Most likely uncontrolled due to severe pain. Will increase metoprolol XL to 100 mg by mouth daily. Qualifiers: Hypertension type: essential hypertension Qualified Code(s): I10 - Essential (primary) hypertension (6) Cervical myelopathy Current Visit: Yes Status: Chronic (7) Myelomalacia Current Visit: Yes Status: Chronic (8) DVT prophylaxis Current Visit: Yes Status: Acute Assessment and plan: With SCDs. Will start subcutaneous heparin - Subjective Interval history: Patient continues to have severe neck pain at surgical site. This has not improved despite receiving multiple narcotic medications and Toradol for controlling his pain. Rated 8 out of 10 in severity. Denies any focal weakness or numbness in his extremities. No bowel or bladder incontinence. - Constitutional Vitals: Temp Pulse Resp BP Pulse Ox 98.9 F 108 16 167/68 95 08/31/16 10:04 08/31/16 10:04 08/31/16 10:04 08/31/16 10:04 08/31/16 10:04 General appearance: Present: cooperative, A&O X 3, pleasant, severe distress, answers questions appropriately - Neck Neck exam general surgery: Present: supple, trachea midline. Absent: lymphadenopathy Additional comments: Surgical wound currently bandaged posterior neck - Respiratory Respiratory exam: Present: CTAB. Absent: accessory muscle use, rales, rhonchi, wheezes - Cardiovascular Cardiovascular exam: Present: RRR, +S1, +S2. Absent: diastolic murmur, gallop, rubs, systolic murmur - GI/Abdominal GI/Abdominal exam: Present: normal bowel sounds, soft, no peritoneal signs. Absent: distended, tenderness - Extremities Exam Extremities exam: Present: warm, radial pulses palpable and symetrical. Absent : calf tenderness, cyanotic, pedal edema - Neurological Exam Neurological exam: Present: alert, oriented X3, no focal deficits. Absent: facial droop, speech deficit Internal Medicine: Result - Labs CBC & Chem 7: 08/30/16 06:09 08/30/16 06:09 - ABG Interpretation ABG results: PT/INR, D-dimer PT 12.4 Seconds (9.4-12.1) H 08/28/16 09:49 - Impressions Impressions Cervical Spine X-Ray 08/30/16 00:00 IMPRESSION: Status post posterior fusion at C3 through C7. No obvious complication on single frontal view. D/ / 08/30/2016 13:28:03 Lisa Hopson MD / [facility] Interpreting Provider: Lisa Hopson MD Fluoroscopy 08/30/16 00:00 IMPRESSION: Intraprocedural fluoroscopic spot images as above. See separate procedure report for more information. D/ / Jing Lara MD / Jing Lara MD Interpreting Provider: Jing Lara MD - VTE Reasons for not Prescribing Prophylaxis: Treatment not Indicated - Low risk for VTE Documentation of Mechanical Device: Intermittent pneumatic compression device Consult Discharge Plan - Plan Referrals: Jr Michel DO [Partnered Physician] - 09/04/16 8:00 am Jina Redman MD [Primary Care Provider] - 09/12/16 10:45 am Braden Ramos MD [Partnered Physician] - 10/16/16 3:10 pm - Attending Attestation This document has been at least partially created by [employer] recognition technology by Dr. Erickson. Errors in grammar, wording or other phrases may exist. If errors are found after the documentation is signed, they will be addressed individually in the addendum section of this document when appropriate.
--- NOTE | 2016-08-31 17:30 | Spine Progress Note ---
Date of Encounter: 08/31/16 Time of Encounter: 17:29 - Assessment and Plan (1) Spinal cord compression Current Visit: Yes Status: Chronic On physical examination he is afebrile vital signs are stable. He has a spastic gait pattern and uses a cane as an ambulatory aid. He has a positive Alice sign. He has positive inverted radial reflex. He has clonus. He is able to fire all upper and lower extremity motor groups. His hips move symmetrically. MRI of the cervical spine reveals multilevel degenerative changes and severe stenosis C3-C7. There is spinal cord atrophy in the mid cervical spine as well as myelomalacia. There is straightening of the normal cervical lordosis. Impression: 1) Cervical spinal cord compression 2) Cervical Myelopathy 3) Cervical cord Myelomalacia Plan: The patient will be admitted for definitive management. This will be in the form of a posterior cervical decompression and fusion C3-C7. This is necessary due to the likelihood of progressive neurologic deficit. Risks benefits possible complications and alternatives were fully discussed with the patient. The patient would like to proceed. However, medical optimization and clearance measures will need to be performed. (2) Cervical myelopathy Current Visit: Yes Status: Chronic (3) Myelomalacia Current Visit: Yes Status: Chronic Subjective Principal diagnosis: Spinal cord compression, cervical myelopathy Interval history: The patient is without complaints. Afebrile vital signs are stable. Dressing is clean dry and intact. Neurovascularly intact with regard to bilateral upper extremities. Fires all upper and lower extremity motor groups. Assessment : stable. Plan mobilize ,continue analgesics, discharge planning. Objective Vital signs: Vital Signs Temp Pulse Resp BP Pulse Ox 08/31/16 15:49 98.7 F 98 16 176/81 95 08/31/16 11:25 95 25 94 L 08/31/16 10:04 98.9 F 108 16 167/68 95 08/31/16 09:36 186/69 08/31/16 08:24 93 L 08/31/16 07:48 99.5 F 106 18 202/92 95 08/31/16 05:05 97.8 F 96 18 179/92 94 L 08/31/16 03:00 98.2 F 98 17 172/98 95 08/31/16 01:00 95 08/31/16 00:00 98.2 F 98 17 172/98 95 08/30/16 22:27 98.8 F 89 14 165/87 94 L 08/30/16 20:00 97.7 F 91 19 166/93 92 L 08/30/16 18:25 98.6 F 87 18 188/96 93 L Intake and Output 08/31/16 08/31/16 08/31/16 07:59 15:59 23:59 Intake Total 1400 / 1400 240 / 240 Output Total 2450 / 2450 550 / 550 Balance -1050 / -1050 -310 / -310 Intake: IV Fluids 1200 / 1200 Lactated Ringers 1,000 ML 1000 / 1000 @ 100 mls/hr IVC .Q10H [facility] Rx#:[id number] Ancef 1,000 MG In 200 / 200 Dextrose 5% (Minibag+) 100 ML 100 ML @ 200 mls/ hr IVPB Q8H [facility] Rx#: [id number] Oral 200 / 200 240 / 240 Output: Urine 550 / 550 Catheter 2450 / 2450 Other: Meal Lunch Percent of Meal Consumed 0% Blood Glucose* 166 180 172 - Labs CBC & BMP: 08/30/16 06:09 08/30/16 06:09 Labs: Abnormal lab results Hgb 12.8 g/dL (12.9-16.9) L 08/30/16 06:09 MCH 26.7 pg (28.0-33.3) L 08/30/16 06:09 RDW 14.7 % (11.5-14.5) H 08/30/16 06:09 PT 12.4 Seconds (9.4-12.1) H 08/28/16 09:49 Potassium 3.2 mEq/L (3.5-4.5) L 08/30/16 06:09 Glucose 145 mg/dL (70-99) H 08/30/16 06:09 POC Glucose 159 (58-89) H 08/30/16 20:28 Consult Discharge Plan - Plan Referrals: Jr Michel DO [Partnered Physician] - 09/04/16 8:00 am Jina Redman MD [Primary Care Provider] - 09/12/16 10:45 am Braden Ramos MD [Partnered Physician] - 10/16/16 3:10 pm
[2016-09-01] MEDS: *HR* HYDROmorphone (PF) 1 MG/ML SYRINGE IVP PRN ×5 (00:11→18:23)
[2016-09-01] MEDS: *HR* OxyCODONE ER (12 HR) 10 MG TABLET PO SCH ×2 (04:15→16:31)
[2016-09-01 06:18] LABS: Hemoglobin 12.8 g/dL (12.9-16.9); Immature Granulocytes % 1.2 % (0-4)
[2016-09-01 06:19] LABS: Basophils % 0.1 %; Hematocrit 38.7 % (37.5-50.1); Lymphocytes % 3.8 %; Mean Corpuscular HGB Conc 33.1 g/dL (31.6-35.5); Mean Corpuscular Hemoglobin 27.2 pg (28.0-33.3); Mean Corpuscular Volume 82.3 fL (83.0-100.0); Mean Platelet Volume 10.1 fL (9.4-12.4); Monocytes # 2.4 K/mcL (0.0-1.3); Monocytes % 9.1 %; Neutrophils # 22.4 K/mcL (1.6-8.9); Platelet Count 299 K/mcL (140-400); Segmented Neutrophils % 85.8 %
[2016-09-01 06:28] LABS: BUN/Creatinine Ratio 33 (6-26); Blood Urea Nitrogen 24 mg/dL (8-26); Calcium 9.9 mg/dL (8.6-10.8); Carbon Dioxide 26 mEq/L (19-29); Chloride 97 mEq/L (98-109); Glucose 186 mg/dL (70-99); Osmolality,Calculated 289 (280-300); Potassium 3.2 mEq/L (3.5-4.5); Sodium 135 mEq/L (136-145); eGFR For African Americans > 60 (> 60); eGFR For Non-African Americans > 60 (> 60)
[2016-09-01 06:44] LABS: Platelet Estimate Normal (Normal); Toxic Granulation Present (Not Present)
[2016-09-01] MEDS: Celecoxib 200 MG CAPSULE PO SCH ×2 (08:21→20:42)
[2016-09-01] MEDS: Lisinopril-HCTZ 20-12.5mg TABLET PO SCH (08:21)
[2016-09-01] MEDS: amLODIPine 5 MG TABLET PO SCH (08:22)
[2016-09-01] MEDS: Baclofen 10 MG TABLET PO SCH ×3 (08:22→20:42)
[2016-09-01] MEDS: *HR* OxyCODONE Immed Rel 5 MG TABLET PO PRN ×4 (08:22→20:43)
[2016-09-01] MEDS: Aspirin 81 MG TAB.CHEW PO SCH (08:22)
[2016-09-01] MEDS: Insulin LISPRO 300 UNITS/3 ML VIAL SQ SCH ×4 (08:32→20:44)
[2016-09-01] MEDS: Ketorolac 15 MG/ML VIAL IVP PRN ×2 (09:35→20:48)
--- NOTE | 2016-09-01 13:56 | Internal Med Progress Note ---
Date of Encounter: 09/01/16 Time of Encounter: 13:55 - Assessment and plan (1) Spinal stenosis in cervical region Current Visit: Yes Status: Acute Assessment and plan: Status post cervical fusion. Still receiving intravenous narcotic medications for pain control. Will decrease frequency. Increase oral meds. Continue physical therapy. Placement to skilled rehabilitation. (2) Spinal cord compression Current Visit: Yes Status: Chronic (3) Diabetes mellitus Current Visit: Yes Status: Chronic Assessment and plan: Controlled. No changes at this time. Qualifiers: Diabetes mellitus type: type 2 Diabetes mellitus complication status: without complication Diabetes mellitus long term acute care registered nurse insulin use: with care home use Qualified Code(s): E11.9 - Type 2 diabetes mellitus without complications ; Z79.4 - long term acute care registered nurse (current) use of insulin (4) CAD (coronary artery disease), [place] coronary artery Current Visit: No Status: Chronic Assessment and plan: Continue aspirin, statin and beta carmina. Qualifiers: [place] vs. transplanted heart: [place] heart Associated angina: angina presence unspecified Qualified Code(s): I25.10 - Atherosclerotic heart disease of [place] coronary artery without angina pectoris (5) Hypertension Current Visit: No Status: Chronic Assessment and plan: Improved control. Qualifiers: Hypertension type: essential hypertension Qualified Code(s): I10 - Essential (primary) hypertension (6) Cervical myelopathy Current Visit: Yes Status: Chronic (7) Myelomalacia Current Visit: Yes Status: Chronic (8) DVT prophylaxis Current Visit: Yes Status: Acute - Subjective Interval history: Pain is better controlled today. Patient is having intermittent spells of severe pain but otherwise is able to rest better. Denies any fever or chills or night sweats. No bladder incontinence. No focal weakness. - Constitutional Vitals: Temp Pulse Resp BP Pulse Ox 98.0 F 95 18 148/82 96 09/01/16 07:27 09/01/16 07:27 09/01/16 07:27 09/01/16 07:27 09/01/16 07:27 General appearance: Present: cooperative, A&O X 3, pleasant, severe distress, answers questions appropriately - Neck Additional comments: Neck incision bandaged. - Respiratory Respiratory exam: Present: CTAB. Absent: accessory muscle use, rales, rhonchi, wheezes - GI/Abdominal GI/Abdominal exam: Present: normal bowel sounds, soft, no peritoneal signs. Absent: distended, tenderness - Extremities Exam Extremities exam: Present: warm, radial pulses palpable and symetrical. Absent : calf tenderness, cyanotic, pedal edema - Neurological Exam Neurological exam: Present: alert, no focal deficits. Absent: facial droop, speech deficit - Skin Skin exam: Present: dry, intact Internal Medicine: Result - Labs CBC & Chem 7: 09/01/16 05:50 09/01/16 05:50 Labs: Short CBC 09/01/16 Range/Units 05:50 WBC 26.1 H D (4.3-11.1) K/mcL Hgb 12.8 L (12.9-16.9) g/dL Hct 38.7 (37.5-50.1) % Plt Count 299 (140-400) K/mcL Neutrophils # 22.4 H (1.6-8.9) K/mcL BMP 09/01/16 05:50 Sodium 135 L Potassium 3.2 L Chloride 97 L Carbon Dioxide 26 BUN 24 D Creatinine 0.73 Glucose 186 H Calcium 9.9 - ABG Interpretation ABG results: PT/INR, D-dimer PT 12.4 Seconds (9.4-12.1) H 08/28/16 09:49 - Impressions Impressions Cervical Spine X-Ray 08/31/16 17:14 IMPRESSION: Status post C3 through C7 fusion. D/ / Ortiz Goldman MD / Ortiz Goldman MD Interpreting Provider: Ortiz Goldman MD - VTE Reasons for not Prescribing Prophylaxis: Treatment not Indicated - Low risk for VTE Documentation of Mechanical Device: Intermittent pneumatic compression device Consult Discharge Plan - Plan Referrals: Jr Michel DO [Partnered Physician] - 09/04/16 8:00 am Jina Redman MD [Primary Care Provider] - 09/12/16 10:45 am Braden Ramos MD [Partnered Physician] - 10/16/16 3:10 pm - Attending Attestation This document has been at least partially created by [employer] recognition technology by Dr. Erickson. Errors in grammar, wording or other phrases may exist. If errors are found after the documentation is signed, they will be addressed individually in the addendum section of this document when appropriate.
--- NOTE | 2016-09-01 17:01 | Discharge Summary ---
Date of Encounter: 09/01/16 Time of Encounter: 16:59 - Discharge Diagnosis (1) Spinal cord compression Priority: Primary Status: Chronic (2) Cervical myelopathy Priority: Secondary Status: Chronic (3) Myelomalacia Priority: Secondary Status: Chronic - Discharge Medications Prescriptions: OxyCODONE Immed Rel [Roxicodone 5 MG] 10 mg PO Q4H PRN #30 tablet PRN Reason: Severe Pain Home Medications: OxyCODONE ER (12 HR) [OxyCONTIN] 10 mg PO Q12HR PRN 06/12/15 [History] Amlodipine Besylate 10 mg PO DAILY 04/02/16 [History] Atorvastatin [Lipitor] 40 mg PO HS 04/02/16 [History] Lisinopril/Hydrochlorothiazide [Zestoretic 20-12.5 mg Tablet] 2 tab PO DAILY 11/12 [History] Metoprolol XL (24 HR) Succ [Toprol Xl] 50 mg PO DAILY 04/02/16 [History] Oxycodone HCl/Acetaminophen [Percocet 5-325 mg Tablet] 1 tab PO Q6H PRN [History] Pantoprazole Sodium [Protonix] 40 mg PO Q12H #60 tablet. 04/04/16 [Rx] Sucralfate [Carafate] 1 gm PO TIDAC 30 Days 04/04/16 [Rx] Aspirin 81 mg PO DAILY 08/16/16 [History] OxyCODONE Immed Rel [Roxicodone 5 MG] 10 mg PO Q4H PRN #30 tablet 09/01/16 [Rx] Allergies/Adverse Reactions: Allergies Iodinated Contrast Media - Oral and [Iodinated Contrast Media - IV Dye] Allergy (Verified 05/17/16 12:58) Hives pravastatin Allergy (Verified 08/16/16 09:28) See Comments tachycardia pregabalin [From Lyrica] Adverse Reaction (Verified 08/16/16 09:28) See Comments strange thoughts Labs on day of discharge: Labs from last 24 hours 09/01/16 09/01/16 09/01/16 11:50 07:26 05:50 WBC RBC Hgb Hct MCV MCH MCHC RDW Plt Count MPV Immature Gran % Seg Neutrophils % Lymphocytes % Monocytes % Eosinophils % Basophils % Neutrophils # Lymphocytes # Monocytes # Eosinophils # Basophils # Toxic Granulation Platelet Estimate Sodium 135 L Potassium 3.2 L Chloride 97 L Carbon Dioxide 26 BUN 24 D Creatinine 0.73 Est GFR ( Amer) > 60 Est GFR (Non-Af Amer) > 60 BUN/Creatinine Ratio 33 H Glucose 186 H POC Glucose 162 H 204 H Calculated Osmolality 289 Calcium 9.9 09/01/16 08/31/16 08/31/16 05:50 20:13 16:08 WBC 26.1 H D RBC 4.70 Hgb 12.8 L Hct 38.7 MCV 82.3 L MCH 27.2 L MCHC 33.1 RDW 15.0 H Plt Count 299 MPV 10.1 Immature Gran % 1.2 Seg Neutrophils % 85.8 Lymphocytes % 3.8 Monocytes % 9.1 Eosinophils % 0.0 Basophils % 0.1 Neutrophils # 22.4 H Lymphocytes # 1.0 Monocytes # 2.4 H Eosinophils # 0.0 Basophils # 0.0 Toxic Granulation Present A Platelet Estimate Normal Sodium Potassium Chloride Carbon Dioxide BUN Creatinine Est GFR ( Amer) Est GFR (Non-Af Amer) BUN/Creatinine Ratio Glucose POC Glucose 182 H 172 H Calculated Osmolality Calcium 08/31/16 08/31/16 11:06 07:03 WBC RBC Hgb Hct MCV MCH MCHC RDW Plt Count MPV Immature Gran % Seg Neutrophils % Lymphocytes % Monocytes % Eosinophils % Basophils % Neutrophils # Lymphocytes # Monocytes # Eosinophils # Basophils # Toxic Granulation Platelet Estimate Sodium Potassium Chloride Carbon Dioxide BUN Creatinine Est GFR ( Amer) Est GFR (Non-Af Amer) BUN/Creatinine Ratio Glucose POC Glucose 180 H 166 H Calculated Osmolality Calcium - Impressions ITS Impressions Chest X-Ray 08/28/16 09:28 IMPRESSION: No acute process. D/ / Jc Olvera MD / Jc Olvera MD Interpreting Provider: Jc Olvera MD Cervical Spine X-Ray 08/30/16 00:00 IMPRESSION: Status post posterior fusion at C3 through C7. No obvious complication on single frontal view. D/ / 08/30/2016 13:28:03 Lisa Hopson MD / earnold Interpreting Provider: Lisa Hopson MD Fluoroscopy 08/30/16 00:00 IMPRESSION: Intraprocedural fluoroscopic spot images as above. See separate procedure report for more information. D/ / Jing Lara MD / Jing Lara MD Interpreting Provider: Jing Lara MD Cervical Spine X-Ray 08/31/16 17:14 IMPRESSION: Status post C3 through C7 fusion. D/ / Ortiz Goldman MD / Ortiz Goldman MD Interpreting Provider: Ortiz Goldman MD Date of admission: 08/28/16 18:00 Primary care physician: Jina Redman, Consults: 08/28/16 12:11 Consult to Cardiology [CONS] Routine Comment: Consulting Provider: Cardiology Nena Reason for Consult: surgical clearance Time Notified: 12:13 Call Completed: Yes 08/31/16 10:34 Consult to Occupational Therapy [CONS] Routine Comment: Evaluate, develop and implement POC Consult to Physical Therapy [CONS] Routine Comment: Evaluate, develop and implement POC 09/01/16 07:36 Consult to Appeals Board Referee [CONS] Routine Reason for SW Consult: Discharge Planning - Patient Status Disposition: Transfer SNF Condition: Good Functional capacity at discharge: uses cane/walker Overall status at discharge: patient is progressing back to baseline - Discharge Instructions Follow Up With: Jr Michel DO [Partnered Physician] - 09/04/16 8:00 am Jina Redman MD [Primary Care Provider] - 09/12/16 10:45 am Braden Ramos MD [Partnered Physician] - 10/16/16 3:10 pm - Diet and Activity Activity: as per physical therapy Diet: advance to your usual diet - Hospital Course Hospital course: Mr. Ramirez is a 71 year old male who underwent a posterior cervical decompression and fusion C3-C7 for spinal cord compression and cervical myelopathy. The patient had an uneventful postoperative course. Progressed from intravenous analgesic needs to oral analgesic needs only. Remained neurovascularly intact but mobilized only fairly. This was equivalent to his preoperative state.. All intraoperative and/or postoperative radiographic studies were satisfactory. Patient is discharged with plan for rehabilitation at [place] [facility] and follow-up in 2 weeks post discharge on analgesic medication and patient's home medications. - Time Spent with Patient Total time spent providing and/or coordinating discharge services: - VTE Reasons for not Prescribing Prophylaxis: Treatment not Indicated - Low risk for VTE Documentation of Mechanical Device: Intermittent pneumatic compression device
[2016-09-02 03:28] LABS: Basophils % 0.1 %; Eosinophils # 0.2 K/mcL (0.0-0.6); Eosinophils % 1.1 %; Hematocrit 37.3 % (37.5-50.1); Hemoglobin 11.8 g/dL (12.9-16.9); Immature Granulocytes % 0.7 % (0-4); Lymphocytes # 1.1 K/mcL (0.6-4.6); Lymphocytes % 6.9 %; Mean Corpuscular HGB Conc 31.6 g/dL (31.6-35.5); Mean Corpuscular Volume 85.4 fL (83.0-100.0); Mean Platelet Volume 9.9 fL (9.4-12.4); Monocytes # 1.7 K/mcL (0.0-1.3); Monocytes % 10.8 %; Neutrophils # 12.3 K/mcL (1.6-8.9); Platelet Count 250 K/mcL (140-400); Red Blood Count 4.37 M/mcL (4.19-5.50); Red Cell Distribution Width 15.4 % (11.5-14.5); Segmented Neutrophils % 80.4 %
[2016-09-02 03:44] LABS: BUN/Creatinine Ratio 42 (6-26); Blood Urea Nitrogen 42 mg/dL (8-26); Calcium 9.6 mg/dL (8.6-10.8); Carbon Dioxide 27 mEq/L (19-29); Chloride 96 mEq/L (98-109); Glucose 154 mg/dL (70-99); Osmolality,Calculated 294 (280-300); Potassium 3.7 mEq/L (3.5-4.5); Sodium 135 mEq/L (136-145); eGFR For African Americans > 60 (> 60); eGFR For Non-African Americans > 60 (> 60)
[2016-09-02] MEDS: *HR* HYDROmorphone (PF) 1 MG/ML SYRINGE IVP PRN (04:30)
[2016-09-02] MEDS: *HR* OxyCODONE ER (12 HR) 10 MG TABLET PO SCH (04:30)
--- NOTE | 2016-09-02 06:37 | Orthopedics Progress Note ---
Date of Encounter: 09/02/16 Time of Encounter: 06:37 Subjective Principal diagnosis: Spinal cord compression, cervical myelopathy Interval history: Patient doing well this morning neck dressing clean dry and intact Plan for discharge today Objective Vital signs: Vital Signs Temp Pulse Resp BP Pulse Ox 09/02/16 04:49 98 09/02/16 04:19 98.5 F 70 14 123/58 98 09/01/16 23:16 98.5 F 76 15 123/71 95 09/01/16 19:14 97.9 F 72 17 112/59 92 L 09/01/16 15:19 97.6 F 69 16 110/63 97 09/01/16 07:27 98.0 F 95 18 148/82 96 Intake and Output 09/01/16 09/01/16 09/02/16 15:59 23:59 07:59 Other: # Voids 1 Blood Glucose* 162 149 - Labs CBC & BMP: 09/02/16 03:15 09/02/16 03:15 Labs: Abnormal lab results WBC 15.3 K/mcL (4.3-11.1) H 09/02/16 03:15 Hgb 11.8 g/dL (12.9-16.9) L 09/02/16 03:15 Hct 37.3 % (37.5-50.1) L 09/02/16 03:15 MCH 27.0 pg (28.0-33.3) L 09/02/16 03:15 RDW 15.4 % (11.5-14.5) H 09/02/16 03:15 Neutrophils # 12.3 K/mcL (1.6-8.9) H 09/02/16 03:15 Monocytes # 1.7 K/mcL (0.0-1.3) H 09/02/16 03:15 Toxic Granulation Present (Not Present) A 09/01/16 05:50 PT 12.4 Seconds (9.4-12.1) H 08/28/16 09:49 Sodium 135 mEq/L (136-145) L 09/02/16 03:15 Chloride 96 mEq/L (98-109) L 09/02/16 03:15 BUN 42 mg/dL (8-26) H D 09/02/16 03:15 BUN/Creatinine Ratio 42 (6-26) H 09/02/16 03:15 Glucose 154 mg/dL (70-99) H 09/02/16 03:15 POC Glucose 149 (58-89) H 09/01/16 19:19 - VTE Reasons for not Prescribing Prophylaxis: Treatment not Indicated - Low risk for VTE Documentation of Mechanical Device: Intermittent pneumatic compression device Consult Discharge Plan - Plan Referrals: Jr Michel DO [Partnered Physician] - 09/04/16 8:00 am Jina Redman MD [Primary Care Provider] - 09/12/16 10:45 am Braden Ramos MD [Partnered Physician] - 10/16/16 3:10 pm Prescriptions: OxyCODONE Immed Rel [Roxicodone 5 MG] 10 mg PO Q4H PRN #30 tablet PRN Reason: Severe Pain
[2016-09-02] MEDS: *HR* OxyCODONE Immed Rel 5 MG TABLET PO PRN ×2 (07:22→11:19)
[2016-09-02] MEDS ORDERED: 0.9 % Sodium Chloride 1,000 ML IVC SCH (07:45)
[2016-09-02] MEDS: Insulin LISPRO 300 UNITS/3 ML VIAL SQ SCH (09:42)
[2016-09-02] MEDS ORDERED: 0.9 % Sodium Chloride 1,000 ML IVC ONE (09:43)
[2016-09-02] MEDS ORDERED: 0.9 % Sodium Chloride 1,000 ML ONE (09:46)
--- NOTE | 2016-09-02 10:58 | Internal Med Progress Note ---
Date of Encounter: 09/02/16 Time of Encounter: 10:56 - Assessment and plan (1) Spinal stenosis in cervical region Current Visit: Yes Status: Acute Assessment and plan: Status post a right confusion. Patient will be discharged to rehabilitation today. Continue pain control with oral medications. Physical therapy. BUN elevated today likely due to poor oral intake. We will hydrate prior to discharge. (2) Spinal cord compression Current Visit: Yes Status: Chronic (3) Diabetes mellitus Current Visit: Yes Status: Chronic Assessment and plan: Controlled. Qualifiers: Diabetes mellitus type: type 2 Diabetes mellitus complication status: without complication Diabetes mellitus senior living insulin use: with dedicated intermodal truck driver use Qualified Code(s): E11.9 - Type 2 diabetes mellitus without complications ; Z79.4 - dedicated intermodal truck driver (current) use of insulin (4) CAD (coronary artery disease), [place] coronary artery Current Visit: No Status: Chronic Assessment and plan: No chest pain. Continue aspirin, statin and beta carmina Qualifiers: [place] vs. transplanted heart: [place] heart Associated angina: angina presence unspecified Qualified Code(s): I25.10 - Atherosclerotic heart disease of [place] coronary artery without angina pectoris (5) Hypertension Current Visit: No Status: Chronic Qualifiers: Hypertension type: essential hypertension Qualified Code(s): I10 - Essential (primary) hypertension (6) Cervical myelopathy Current Visit: Yes Status: Chronic (7) Myelomalacia Current Visit: Yes Status: Chronic (8) DVT prophylaxis Current Visit: Yes Status: Acute - Subjective Interval history: Patient is doing better. His pain is now better controlled but mostly oral medications. He will be discharged to rehabilitation today. Tolerating diet well. - Constitutional Vitals: Temp Pulse Resp BP Pulse Ox 97.8 F 67 18 133/64 96 09/02/16 06:53 09/02/16 06:53 09/02/16 06:53 09/02/16 06:53 09/02/16 06:53 General appearance: Present: cooperative, A&O X 3, pleasant, severe distress, answers questions appropriately - Neck Additional comments: Incision site is currently bandaged. - Respiratory Respiratory exam: Present: CTAB. Absent: accessory muscle use, rales, rhonchi, wheezes - Cardiovascular Cardiovascular exam: Present: RRR, +S1, +S2. Absent: diastolic murmur, gallop, rubs, systolic murmur - GI/Abdominal GI/Abdominal exam: Present: normal bowel sounds, soft, no peritoneal signs. Absent: distended, tenderness - Extremities Exam Extremities exam: Present: warm, radial pulses palpable and symetrical. Absent : calf tenderness, cyanotic, pedal edema Internal Medicine: Result - Labs CBC & Chem 7: 09/02/16 03:15 09/02/16 03:15 Labs: Short CBC 09/02/16 Range/Units 03:15 WBC 15.3 H (4.3-11.1) K/mcL Hgb 11.8 L (12.9-16.9) g/dL Hct 37.3 L (37.5-50.1) % Plt Count 250 (140-400) K/mcL Neutrophils # 12.3 H (1.6-8.9) K/mcL BMP 09/02/16 03:15 Sodium 135 L Potassium 3.7 Chloride 96 L Carbon Dioxide 27 BUN 42 H D Creatinine 1.01 Glucose 154 H Calcium 9.6 - ABG Interpretation ABG results: PT/INR, D-dimer PT 12.4 Seconds (9.4-12.1) H 08/28/16 09:49 - VTE Reasons for not Prescribing Prophylaxis: Treatment not Indicated - Low risk for VTE Documentation of Mechanical Device: Intermittent pneumatic compression device Consult Discharge Plan - Plan Additional Instructions: Discharge Instructions: Cervical Please call [facility] ([phone]), your Primary Care Physician, or report to the ER if you have any of the following symptoms: Fever greater that 101.5, increased pain/redness/drainage/odor for your incision site or any other concerning symptoms. ACTIVITY * May Shower * No Tub Baths * No Smoking * No Swimming * No Driving * Wear Collar when up walking MEDICATIONS: Upon discharge resume your home medications. Take all the medications as prescribed. Take a stool softener if taking narcotic pain medications. Stool softeners are only effective if you drink enough fluids. Drink 6-8 glass of water or fluids a day, unless this is not allowed for another health problem. Despite using stool softeners, if you haven't had a bowel movement in 3 days, please switch to a gentle laxative. Gentle laxatives are sold over the counter. You should have a bowel movement within 24 hours, if not call the office. You will be discharged from the hospital with a prescription for pain medication. You are encouraged to decrease the use of narcotic pain medication as tolerated. Should you require a refill, please call the office. It is best to call 48-72 hours in advance of needing a prescription refill so you don't run out of medication. WOUND CARE: Leave steri-strips in place until they fall off on their own. Pat dry when you get out of the shower. FOLLOW-UP: Please follow up with your surgeon in the orthopedic clinic in 2 weeks from the day of surgery. References: [employer] (www.apta.org) Referrals: Jr Michel DO [Partnered Physician] - 09/04/16 8:00 am Jina Redman MD [Primary Care Provider] - 09/12/16 10:45 am Braden Ramos MD [Partnered Physician] - 10/16/16 3:10 pm Prescriptions: OxyCODONE Immed Rel [Roxicodone 5 MG] 10 mg PO Q4H PRN #30 tablet PRN Reason: Severe Pain - Attending Attestation This document has been at least partially created by [employer] recognition technology by Dr. Erickson. Errors in grammar, wording or other phrases may exist. If errors are found after the documentation is signed, they will be addressed individually in the addendum section of this document when appropriate.
[2016-09-02 11:05] VITALS: BP 114/61
== END 2016-09-02 11:56 | disposition other institution (70) | DRG 29 ==
LOC: 3NENU → SUATTDRO 18:00
PROVIDERS: ADMIT Orthopaedic Surgery Orthopaedic Surgery of the Spine; ATTEND Orthopaedic Surgery Orthopaedic Surgery of the Spine

== ENCOUNTER 2017-03-11 02:42 | Inpatient (IN) ==
[2017-03-11] MEDS ORDERED: 0.9 % Sodium Chloride 1,000 ML IVC ONE (03:00)
[2017-03-11] MEDS ORDERED: Ondansetron 4 MG/2 ML VIAL IVP ONE (03:29)
[2017-03-11] MEDS ORDERED: *HR* HYDROmorphone (PF) 1 MG/ML SYRINGE IVP ONE (03:29)
--- NOTE | 2017-03-11 03:29 | Emergency Department Note ---
Disposition Clinical Impression: Gastrointestinal bleeding, lower, Hematochezia Diverticulosis Qualifiers: Diverticulosis site: diverticulosis of large intestine Diverticulosis bleeding : diverticulosis with bleeding Qualified Code(s): K57.31 - Diverticulosis of large intestine without perforation or abscess with bleeding Disposition: Admitted As Inpatient Condition: Fair Time of Disposition: 06:17 GI Bleed HPI - General Chief complaint: ED GI Bleed Stated complaint: Rectal Bleeding Time Seen by Provider: 03/11/17 02:55 Source: patient, family Mode of arrival: ambulatory Limitations: no limitations Nursing Notes Reviewed: Yes Vital Signs Reviewed: Yes - History of Present Illness HPI Narrative: Mr. Ramirez is a 72-year-old male with past medical history of hyperlipidemia, hypertension, diabetes, and peptic ulcer disease. He presents to the ED with a five-hour history of bright red bleeding per his rectum. He said he was not doing anything when he felt blood [place] out of his rectum at around 10:30 PM. The amount of blood since then has become greater and more frequent so he decided to come to the emergency department. Mr. Ramirez is not taking any blood thinners, but has recently taken an antibiotic. He denies any history of grafting along his aorta although he does have a positive family history for abdominal aortic aneurysms. Mr. Ramirez suffers from chronic constipation. He said his last bowel movement was this morning, and it was light brown and regular. His last colonoscopy was less than 6 months ago and the only finding was a small polyp. Of note, patient had an upper GI bleed several months ago from a peptic ulcer. - Related Data Home Medications Medication Instructions Recorded Confirmed Amlodipine Besylate 10 mg PO DAILY 04/02/16 03/11/17 Lisinopril/Hydrochlorothiazide 2 tab PO QPM 04/02/16 03/11/17 [Zestoretic 20-12.5 mg Tablet] Metoprolol XL (24 HR) Succ [Toprol 100 mg PO DAILY 04/02/16 03/11/17 Xl] Aspirin 81 mg PO DAILY 08/16/16 03/11/17 Gabapentin [Neurontin] 800 mg PO BID 03/11/17 03/11/17 Oxycodone HCl/Acetaminophen 1 tab PO Q4H PRN 03/11/17 03/11/17 [Percocet 10-325 mg Tablet] Previous Rx's Medication Instructions Recorded Pantoprazole Sodium [Protonix] 40 mg PO Q12H #60 tablet. 04/04/16 Allergies Allergy/AdvReac Type Severity Reaction Status Date / Time Iodinated Contrast- Oral and Allergy Hives Verified 03/11/17 02:43 IV Dye [Iodinated Contrast Media - IV Dye] pravastatin Allergy See Verified 03/11/17 02:43 Comments pregabalin [From Lyrica] AdvReac See Verified 03/11/17 02:43 Comments All systems ED: reviewed and negative except as stated. Review of Systems: As Per HPI Constitutional: Denies: fever, chills Cardiovascular: Denies: chest pain, palpitations, dyspnea on exertion, edema, syncope Respiratory: Denies: cough, dyspnea, wheezes Gastrointestinal: Reports: hematochezia. Denies: abdominal pain, nausea, vomiting Genitourinary: Denies: urgency, dysuria, frequency, hematuria Musculoskeletal: Denies: back pain Neurological: Denies: headache, weakness, numbness Past Medical History - Past Medical History Medical history: Reports: arthritis, coronary artery disease, GERD, GI bleed, hyperlipidemia, hypertension, other Surgical history: Reports: orthopedic, other, other Psychiatric history: Reports: no psych history - Social History Smoking Status: Former smoker Smokeless Tobacco Status: No Alcohol use: Reports: none Drug use: Reports: none Physical Exam - General Limitations: no limitations General appearance: alert, obese - Head Head exam: atraumatic, normocephalic - Respiratory Respiratory exam: Present: normal lung sounds bilaterally. Absent: respiratory distress, wheezes - Cardiovascular Cardiovascular exam: Present: regular rate, normal rhythm. Absent: systolic murmur, diastolic murmur, rubs, gallop - Abdominal Exam Abdominal exam: Present: soft, Non-Tender (Patient had belly pain that was not elicited during physical exam. ) Abdominal tenderness: Present: suprapubic (Patients pain was localized to his suprapubic region although palpation did not elicit tenderness.), mild - Rectal Exam Rectal exam: Present: normal rectal tone, other (PRBPR with large amount of clots. No hemmorhoids or fissures identified.) Course Course Narrative: 72-year-old male with gastrointestinal bleeding for 5 hours presents to the ED with bright red blood per rectum with multiple clots. CBC CMP coags and type and cross were sent to lab. CT scan of the abdomen and pelvis with IV contrast was ordered. 2 large bore IVs were inserted. Patient with history of peptic ulcer disease from which he sustained a GI bleed several months ago. He claims this feels much different. Will treat his pain while waiting results of CT scan. Patient likely admitted to medicine for observation with follow-up colonoscopy. - Reevaluation(s) Reevaluation #1: Patient's CT scan shows diverticular disease. Patient still bleeding significant amount from his rectum enough to soak a pad or [address] Brumfield on medicine will admit the patient. Dr. Ramos advises to prep the patient with GoLYTELY and trend his hemoglobins. He will likely scope him tonight. - Consultations Consultation #1: We spoke with Dr. Ramos on the phone on GI. He says admit the patient to medicine and give him GoLYTELY prep. He will see what his hemoglobin is doing throughout the day and he will likely scope him tonight. Vital Signs Temperature 97.8 F 03/11/17 02:43 Pulse Rate 64 03/11/17 02:43 Respiratory Rate 18 03/11/17 02:43 Blood Pressure 175/86 03/11/17 02:43 O2 Sat by Pulse Oximetry 97 03/11/17 02:43 Temperature 98.0 F 03/12/17 03:32 Pulse Rate 87 03/12/17 03:32 Respiratory Rate 18 03/12/17 03:32 Blood Pressure 181/80 03/12/17 03:32 O2 Sat by Pulse Oximetry 98 03/12/17 03:32 Oxygen Delivery Oxygen Delivery Room Air GI Bleed - Medical Records Medical records reviewed: Yes I reviewed the patient's medical records. - Lab Data Lab results reviewed: Yes I reviewed the patient's lab results. Result diagrams: 03/11/17 21:19 03/11/17 03:20 Lab Results 03/11/17 03/11/17 03/11/17 Range/Units 03:20 03:20 03:20 WBC 12.1 H (4.3-11.1) K/mcL RBC 4.47 (4.19-5.50) M/mcL Hgb 12.1 L (12.9-16.9) g/dL Hct 38.8 (37.5-50.1) % MCV 86.8 (83.0-100.0) fL MCH 27.1 L (28.0-33.3) pg MCHC 31.2 L (31.6-35.5) g/dL RDW 13.8 (11.5-14.5) % Plt Count 252 (140-400) K/mcL MPV 9.7 (9.4-12.4) fL Immature Gran % 1.0 (0-4) % Seg Neutrophils % 80.4 % Lymphocytes % 9.6 % Monocytes % 7.2 % Eosinophils % 1.4 % Basophils % 0.4 % Neutrophils # 9.8 H (1.6-8.9) K/mcL Lymphocytes # 1.2 (0.6-4.6) K/mcL Monocytes # 0.9 (0.0-1.3) K/mcL Eosinophils # 0.2 (0.0-0.6) K/mcL Basophils # 0.1 (0.0-0.2) K/mcL PT 11.8 (9.4-12.1) Seconds INR 1.1 APTT 31.8 (26.0-36.0) Seconds Sodium 140 (136-145) mEq/L Potassium 3.7 (3.5-4.5) mEq/L Chloride 104 (98-109) mEq/L Carbon Dioxide 29 (19-29) mEq/L BUN 22 (8-26) mg/dL Creatinine 0.91 (0.72-1.25) mg/dL Est GFR ( Amer) > 60 (> 60) Est GFR (Non-Af Amer) > 60 (> 60) BUN/Creatinine Ratio 24 (6-26) Glucose 162 H (70-99) mg/dL Calculated Osmolality 297 (280-300) Calcium 9.2 (8.6-10.8) mg/dL Total Bilirubin 0.5 (0.2-1.2) mg/dL AST 13 (5-34) Units/L ALT 16 (0-55) Units/L Alkaline Phosphatase 126 (38-126) Units/L Serum Total Protein 7.4 (6.0-8.3) g/dL Albumin 3.6 (3.5-5.0) g/dL Globulin 3.8 H (2.4-3.5) g/dL Albumin/Globulin Ratio 0.9 L (1.1-2.2) Blood Type Antibody Screen 03/11/17 Range/Units 03:20 WBC (4.3-11.1) K/mcL RBC (4.19-5.50) M/mcL Hgb (12.9-16.9) g/dL Hct (37.5-50.1) % MCV (83.0-100.0) fL MCH (28.0-33.3) pg MCHC (31.6-35.5) g/dL RDW (11.5-14.5) % Plt Count (140-400) K/mcL MPV (9.4-12.4) fL Immature Gran % (0-4) % Seg Neutrophils % % Lymphocytes % % Monocytes % % Eosinophils % % Basophils % % Neutrophils # (1.6-8.9) K/mcL Lymphocytes # (0.6-4.6) K/mcL Monocytes # (0.0-1.3) K/mcL Eosinophils # (0.0-0.6) K/mcL Basophils # (0.0-0.2) K/mcL PT (9.4-12.1) Seconds INR APTT (26.0-36.0) Seconds Sodium (136-145) mEq/L Potassium (3.5-4.5) mEq/L Chloride (98-109) mEq/L Carbon Dioxide (19-29) mEq/L BUN (8-26) mg/dL Creatinine (0.72-1.25) mg/dL Est GFR ( Amer) (> 60) Est GFR (Non-Af Amer) (> 60) BUN/Creatinine Ratio (6-26) Glucose (70-99) mg/dL Calculated Osmolality (280-300) Calcium (8.6-10.8) mg/dL Total Bilirubin (0.2-1.2) mg/dL AST (5-34) Units/L ALT (0-55) Units/L Alkaline Phosphatase (38-126) Units/L Serum Total Protein (6.0-8.3) g/dL Albumin (3.5-5.0) g/dL Globulin (2.4-3.5) g/dL Albumin/Globulin Ratio (1.1-2.2) Blood Type O POSITIVE Antibody Screen NEGATIVE - Radiology Data Radiology results reviewed: Yes I reviewed the patient's radiology results. Abdomen/Pelvis CT 03/11/17 05:30 IMPRESSION: 1. Very subtle area of intermediate attenuation within distal descending colon raises possibility of changes associated with subtle active bleeding associated with underlying diverticular disease as described above. 2. Moderate distention of the stomach and mild distention of multiple loops of small bowel within the abdomen. Finding is nonspecific. Finding could be on the basis of mild ileus. Short-term follow-up plain film examination may be helpful for re-evaluation. 3. No evidence of intraperitoneal free air or abscess. 4. Moderate distension of the gallbladder. Cholelithiasis. D/ / Jose R Lebron MD / Jose R Lebron MD Interpreting Provider: Jose R Lebron MD Attestation Statement - Attestation Attestation: I, Be Faustin, examined this patient and my medical decision-making was reviewed with the SPECIAL LOAN OFFICER/PA/Advanced Practice Nurse/Resident Physician. I agree with the documented findings, disposition and treatment plan as described except to the extent set forth below. 72-year-old male presents with concerns of rectal bleeding. Patient states he has had multiple episodes of hematochezia. Denies chest pain, shortness of breath, near syncopal symptoms. Does not take anticoagulant medications. Never had this history before. Did not eat anything such as beets that would turn his stool red. Patient has mild to moderate left lower quadrant and suprapubic abdominal pain to palpation although there is no guarding or rebound noted on exam. CT of the abdomen and pelvis shows possible diverticulitis. Patient started on medications emergency department. He will be admitted to the hospital for further care and evaluation of his rectal bleeding. Vital signs stable prior to departure. He does not have further bowel movements while in the emergency department.
[2017-03-11 03:30] LABS: Basophils # 0.1 K/mcL (0.0-0.2); Basophils % 0.4 %; Eosinophils # 0.2 K/mcL (0.0-0.6); Eosinophils % 1.4 %; Hematocrit 38.8 % (37.5-50.1); Hemoglobin 12.1 g/dL (12.9-16.9); Lymphocytes # 1.2 K/mcL (0.6-4.6); Lymphocytes % 9.6 %; Mean Corpuscular HGB Conc 31.2 g/dL (31.6-35.5); Mean Corpuscular Hemoglobin 27.1 pg (28.0-33.3); Mean Corpuscular Volume 86.8 fL (83.0-100.0); Mean Platelet Volume 9.7 fL (9.4-12.4); Monocytes # 0.9 K/mcL (0.0-1.3); Monocytes % 7.2 %; Neutrophils # 9.8 K/mcL (1.6-8.9); Platelet Count 252 K/mcL (140-400); Red Blood Count 4.47 M/mcL (4.19-5.50); Red Cell Distribution Width 13.8 % (11.5-14.5); Segmented Neutrophils % 80.4 %
[2017-03-11 03:34] LABS: INR 1.1; Prothrombin Time 11.8 Seconds (9.4-12.1)
[2017-03-11 03:36] LABS: Activated Partial Thrombo Time 31.8 Seconds (26.0-36.0)
[2017-03-11 03:43] LABS: BUN/Creatinine Ratio 24 (6-26); Blood Urea Nitrogen 22 mg/dL (8-26); Carbon Dioxide 29 mEq/L (19-29); Chloride 104 mEq/L (98-109); Potassium 3.7 mEq/L (3.5-4.5); Sodium 140 mEq/L (136-145)
[2017-03-11 03:44] LABS: Alanine Aminotransferase 16 Units/L (0-55); Albumin 3.6 g/dL (3.5-5.0); Albumin/Globulin Ratio 0.9 (1.1-2.2); Alkaline Phosphatase 126 Units/L (38-126); Aspartate Amino Transferase 13 Units/L (5-34); Bilirubin,Total 0.5 mg/dL (0.2-1.2); Calcium 9.2 mg/dL (8.6-10.8); Globulin 3.8 g/dL (2.4-3.5); Glucose 162 mg/dL (70-99); Osmolality,Calculated 297 (280-300); Total Protein 7.4 g/dL (6.0-8.3); eGFR For African Americans > 60 (> 60); eGFR For Non-African Americans > 60 (> 60)
[2017-03-11] MEDS ORDERED: Dexamethasone 4 MG/ML VIAL IVP ONE (04:15)
[2017-03-11] MEDS ORDERED: SODIUM CHLORIDE/NAHCO3/KCL/PEG 4,000 ML SOLN.RECON PO ONE ×2 (06:09→06:25)
[2017-03-11] MEDS ORDERED: Naloxone 0.4 MG/ML INJ IVP PRN (06:21)
--- NOTE | 2017-03-11 06:29 | Internal Med History&Physical ---
Date of Encounter: 03/11/17 Time of Encounter: 06:27 Assessment and Plan (1) Gastrointestinal bleeding, lower Current visit: Yes Status: Acute ED d/w Dr Ramos , rec Golytely prep, conservative management - will check q6 H/H, LR IVF, NPO, possible scope later tonight if bleeding persistent (2) Acute blood loss anemia Current visit: No Status: Acute 2/2 to LGIB, Typed and screened (3) Hypertension Current visit: No Status: Chronic hold anti-HTN Qualifiers: Hypertension type: essential hypertension Qualified Code(s): I10 - Essential (primary) hypertension (4) CAD (coronary artery disease), [place] coronary artery Current visit: No Status: Chronic hold ASA. Close monitoring, tele Qualifiers: [employer] [place] vs. transplanted heart: [place] heart Associated angina: without angina Qualified Code(s): I25.10 - Atherosclerotic heart disease of [place] coronary artery without angina pectoris (5) Gastrointestinal bleeding, upper Current visit: No Status: Acute Recent history. No evidence of active upper GI bleeding. Since nothing by mouth would start protonic IV prophylaxis twice a day Internal Medicine - H&P: HPI Chief complaint: Lower GIB History of present illness: Mr. Ramirez is a 72 year old male with a history of hypertension, CAD, recent upper GI bleed history who presents with acute onset of lower GI bleed. He reports symptoms starting at about 10:30 last night where he had passage of red blood per rectum, associated with clots. He admits to associated lower abdominal discomfort, rates 5 out of 10, no radiation, no improving or relieving factors. CT/CT abd pelvis w iv no oral IMPRESSION: 1. Very subtle area of intermediate attenuation within distal descending colon raises possibility of changes associated with subtle active bleeding associated with underlying diverticular disease as described above. 2. Moderate distention of the stomach and mild distention of multiple loops of small bowel within the abdomen. Finding is nonspecific. Finding could be on the basis of mild ileus. Short-term follow-up plain film examination may be helpful for re-evaluation. 3. No evidence of intraperitoneal free air or abscess. 4. Moderate distension of the gallbladder. Cholelithiasis Past Med Surg Social Fam HX - Past Medical History Medical history: arthritis, coronary artery disease, GERD, GI bleed, hyperlipidemia, hypertension, other Psychiatric history: no psych history - Past Surgical History Surgical History: orthopedic, other, other - Social History Smoking Status: Former smoker Smokeless Tobacco Status: No Alcohol use: none Drug use: none - Family History Mother Living Status: Internal Medicine - H&P: Meds OxyCODONE ER (12 HR) [OxyCONTIN] 10 mg PO Q12HR PRN 06/12/15 [History] Amlodipine Besylate 10 mg PO DAILY 04/02/16 [History] Atorvastatin [Lipitor] 40 mg PO HS 04/02/16 [History] Lisinopril/Hydrochlorothiazide [Zestoretic 20-12.5 mg Tablet] 2 tab PO DAILY 11/12 [History] Metoprolol XL (24 HR) Succ [Toprol Xl] 100 mg PO DAILY 04/02/16 [History] Oxycodone HCl/Acetaminophen [Percocet 5-325 mg Tablet] 1 tab PO Q6H PRN [History] Pantoprazole Sodium [Protonix] 40 mg PO Q12H #60 tablet. 04/04/16 [Rx] Sucralfate [Carafate] 1 gm PO TIDAC 30 Days 04/04/16 [Rx] Aspirin 81 mg PO DAILY 08/16/16 [History] Gabapentin [Neurontin] 300 mg PO TID 12/26/16 [History] Temazepam [Restoril] 30 mg PO HS 12/26/16 [History] Allergies Iodinated Contrast- Oral and IV Dye [Iodinated Contrast Media - IV Dye] Allergy (Verified 03/11/17 02:43) Hives pravastatin Allergy (Verified 03/11/17 02:43) See Comments tachycardia pregabalin [From Lyrica] Adverse Reaction (Verified 03/11/17 02:43) See Comments strange thoughts All Systems PM: A 10-system review of systems was performed and is negative for pertinent findings except as documented above in the HPI. Review of systems: ROS 14 point review of systems reviewed as best as possible given presentation. Pertinent positive or negative as per HPI or otherwise reviewed as negative - Constitutional Vitals: Temp Pulse Resp BP Pulse Ox 97.8 F 70 18 164/101 96 03/11/17 02:43 03/11/17 05:25 03/11/17 05:25 03/11/17 05:25 03/11/17 05:25 Exam: General - AAO x 3 Psych - Appropriate affect/speech. No agitation Eyes - DANAY. Eye lids intact. No scleral icterus ENT - Oral mucosa pink, dentition intact. External ear clear/dry/intact. No thyromegaly Lymphatics - No cervical/inguinal lympadenopathy Neuro - No gross peripheral or central neuro deficits with intact CN 2-12 exam Heart - Sinus. RRR. S1 and S2 present. No added HS/murmurs appreciated. No elevated JVD appreciated. No calf swellings/erythema Lung - Adequate air entry b/l, No crackes/wheezes appreciated GI - Soft, non-tender. No hepatosplenomegaly/ascites. BS+ - No CVA/suprapubic tenderness or palpable bladder distension Skin - Intact. No rash/petechiae/ecchymosis. Warm extremities MSK - Joints with normal ROM. No joint swellings Internal Med - H&P Results - Labs CBC & Chem 7: 03/11/17 03:20 03/11/17 03:20 Labs: Short CBC 03/11/17 Range/Units 03:20 WBC 12.1 H (4.3-11.1) K/mcL Hgb 12.1 L (12.9-16.9) g/dL Hct 38.8 (37.5-50.1) % Plt Count 252 (140-400) K/mcL Neutrophils # 9.8 H (1.6-8.9) K/mcL BMP 03/11/17 03:20 Sodium 140 Potassium 3.7 Chloride 104 Carbon Dioxide 29 BUN 22 Creatinine 0.91 Glucose 162 H Calcium 9.2 Liver Function 03/11/17 Range/Units 03:20 Total Bilirubin 0.5 (0.2-1.2) mg/dL AST 13 (5-34) Units/L ALT 16 (0-55) Units/L Alkaline Phosphatase 126 (38-126) Units/L Albumin 3.6 (3.5-5.0) g/dL - Impressions ITS Impressions Abdomen/Pelvis CT 03/11/17 05:30 IMPRESSION: 1. Very subtle area of intermediate attenuation within distal descending colon raises possibility of changes associated with subtle active bleeding associated with underlying diverticular disease as described above. 2. Moderate distention of the stomach and mild distention of multiple loops of small bowel within the abdomen. Finding is nonspecific. Finding could be on the basis of mild ileus. Short-term follow-up plain film examination may be helpful for re-evaluation. 3. No evidence of intraperitoneal free air or abscess. 4. Moderate distension of the gallbladder. Cholelithiasis. D/ / Jose R Lebron MD / Jose R Lebron MD Interpreting Provider: Jose R Lebron MD
[2017-03-11] MEDS: Pantoprazole 40 MG VIAL IVP SCH ×2 (08:08→16:35)
[2017-03-11] MEDS: 0.9 % Sodium Chloride 1,000 ML IVC SCH ×2 (08:08→18:01)
[2017-03-11] MEDS: *HR* Morphine 2 MG/ML SYRINGE IVP PRN ×3 (08:25→20:43)
[2017-03-11 09:21] LABS: Hematocrit 31.7 % (37.5-50.1)
[2017-03-11 09:35] LABS: Hemoglobin 10.2 g/dL (12.9-16.9)
--- NOTE | 2017-03-11 15:14 | Event Note ---
Date of Encounter: 03/11/17 Time of Encounter: 15:11 Mr. Ramirez is a 72 year old male with a history of hypertension, CAD, recent upper GI bleed history who presents with acute onset of lower GI bleed. He reports symptoms starting at about 10:30 last night where he had passage of red blood per rectum, associated with clots. He admits to associated lower abdominal discomfort, rates 5 out of 10, no radiation, no improving or relieving factors. Pt has not have any more bleeding episodes since this morning.. Started colon prep for colonoscopy Gen: A, A, O x 3 Chest: CTA, No wheezing Heart: s1s2 + RRR Abd: soft, NT, BS + 1. Acute diverticular bleed..no signs of diverticulitis however since his WBC elevated and he did have abx pain when he came in will start him on IV abx Cipro and FLagyl colonoscopy today Hb / Hct Q8hr
[2017-03-11 16:01] LABS: Hemoglobin 9.9 g/dL (12.9-16.9)
[2017-03-11] MEDS: MetroNIDAZOLE 500 MG/100 ML 500 MG/100 ML BAG IVPB SCH (16:35)
[2017-03-11] MEDS ORDERED: Polyethylene Glycol 3350 255 GM POWDER PO ONE (16:44)
[2017-03-11] MEDS: Ringers Solution, Lactated 1,000 ML IVC SCH (20:50)
[2017-03-11] MEDS ORDERED: Temazepam 15 MG CAPSULE PO SCH (21:00)
[2017-03-11 21:25] LABS: Hematocrit 29.9 % (37.5-50.1); Hemoglobin 9.4 g/dL (12.9-16.9)
[2017-03-12] MEDS: 0.9 % Sodium Chloride 1,000 ML IVC SCH (00:52)
[2017-03-12] MEDS: MetroNIDAZOLE 500 MG/100 ML 500 MG/100 ML BAG IVPB SCH ×2 (00:52→07:56)
[2017-03-12] MEDS: Ringers Solution, Lactated 1,000 ML IVC SCH (03:30)
[2017-03-12] MEDS: *HR* Morphine 2 MG/ML SYRINGE IVP PRN ×3 (03:56→14:23)
[2017-03-12 05:08] LABS: BUN/Creatinine Ratio 14 (6-26); Calcium 8.9 mg/dL (8.6-10.8); Carbon Dioxide 25 mEq/L (19-29); Chloride 104 mEq/L (98-109); Glucose 130 mg/dL (70-99); Osmolality,Calculated 287 (280-300); Potassium 3.2 mEq/L (3.5-4.5); Sodium 138 mEq/L (136-145); eGFR For African Americans > 60 (> 60); eGFR For Non-African Americans > 60 (> 60)
[2017-03-12 05:19] LABS: Blood Urea Nitrogen 10 mg/dL (8-26)
[2017-03-12 05:52] LABS: Hematocrit 32.3 % (37.5-50.1); Hemoglobin 10.2 g/dL (12.9-16.9)
[2017-03-12 06:00] LABS: Basophils % 0.4 %; Eosinophils # 0.1 K/mcL (0.0-0.6); Eosinophils % 1.4 %; Hematocrit 32.7 % (37.5-50.1); Hemoglobin 10.3 g/dL (12.9-16.9); Lymphocytes # 1.2 K/mcL (0.6-4.6); Lymphocytes % 13.3 %; Mean Corpuscular HGB Conc 31.5 g/dL (31.6-35.5); Mean Corpuscular Hemoglobin 27.4 pg (28.0-33.3); Mean Platelet Volume 10.2 fL (9.4-12.4); Monocytes # 0.9 K/mcL (0.0-1.3); Monocytes % 9.8 %; Neutrophils # 6.7 K/mcL (1.6-8.9); Platelet Count 217 K/mcL (140-400); Red Blood Count 3.76 M/mcL (4.19-5.50); Segmented Neutrophils % 74.1 %
[2017-03-12] MEDS: Pantoprazole 40 MG VIAL IVP SCH (07:57)
[2017-03-12 09:30] LABS: Hematocrit 30.5 % (37.5-50.1); Hemoglobin 10.1 g/dL (12.9-16.9)
--- NOTE | 2017-03-12 11:07 | Gastroenterology Consult Note ---
<Bairon Hawley - Last Filed: 03/12/17 11:04> Date of Encounter: 03/12/17 Time of Encounter: 10:20 - Assessment and plan (1) Acute blood loss anemia Status: Acute (2) Ulcer of gastroesophageal junction Status: Acute Assessment and plan: Continue PPI. Plan for repeat EGD as outpatient. Qualifiers: Gastric ulcer chronicity: chronic Qualified Code(s): K25.7 - Chronic gastric ulcer without hemorrhage or perforation (3) Gastrointestinal bleeding, lower Status: Acute Assessment and plan: Could be due to diverticular bleeding. Hgb on admission was 12.1 on 03/11 at 03: 20 but decreased to 9.4 on 03/11 at 21:19. Hgb today is 10.3. Plan for colonoscopy today. Keep NPO. (4) Diverticulosis Status: Acute Assessment and plan: Recommend daily fiber supplement. Qualifiers: Diverticulosis site: diverticulosis of large intestine Diverticulosis bleeding: diverticulosis with bleeding Qualified Code(s): K57.31 - Diverticulosis of large intestine without perforation or abscess with bleeding (5) Anemia Status: Acute Assessment and plan: Hgb on admission was 12.1 on 03/11 at 03:20 but decreased to 9.4 on 03/11 at 21: 19. Hgb today is 10.3. Continue to monitor CBC and transfuse PRBC as needed. Qualifiers: Anemia type: unspecified type Qualified Code(s): D64.9 - Anemia, unspecified - Time Spent With Patient Total time spent is greater than 50% in coordination of care (as documented) at patient's floor/unit and/or counseling patient: GI History of Present Illness - Data of Consult Patient: known to practice within the last 3 years Consult date: 03/12/17 Requesting Physician: Sravanthi Alexander - Consult Narrative Reason for consult: Diverticular Bleed History of present illness: Mr. Ramirez is a 72 year old male with PMHx of arthritis, CAD, GERD, GI Bleed, HLD, and HTN who presented to the ED with five-hour history of BRBPR. He reported he flet blood de [place] out of his rectum, then the amount became greater and more frequent. CT A/P with very subtle area of intermediate attenuation within distal descending colon raises possibility of changes associated with subtle active bleeding associated with underlying diverticular disease, moderate distention of the stomach and mild distention of multiple loops of small bowel which is nonspecific but could be related to mild ileus, and 3.5 cm infrarenal abdominal aortic aneurysm. Hgb on admission was 12.1 on 03/11 at 03: 20 but decreased to 9.4 on 03/11 at 21:19. Hgb today is 10.3. Procedures: EGD 12/26/2016 Dr. Ramos: Nonbleeding esophageal ulcer, recommended repeat in 10 weeks. EGD 08/16/2016 Dr. Ramos: Nonbleeding esophageal ulcer. Colonoscopy 05/17/2016 Dr. Ramos: 2 mm cecal hyperplastic polyp, 7 mm ascending colon tubular adenoma, 2 mm rectal hyperplastic polyp, diverticulosis EGD 05/17/2016 Dr. Ramos: Nonbleeding GE junction ulcer healing well, duodenitis, mucosal nodule found at the GE junction consistent with Thorpe's esophagus. EGD 04/02/2016 Dr. Ramos: Nonbleeding esophageal ulcer treated with gold probe, positive for Thorpe's esophagus, acute esophagitis with focal ulceration NSAIDs: ASA Anticoagulation: None Past Med Surg Social Fam HX - Past Medical History Medical history: arthritis, coronary artery disease, GERD, GI bleed, hyperlipidemia, hypertension, other Psychiatric history: no psych history - Past Surgical History Surgical History: orthopedic, other, other - Social History Smoking Status: Former smoker Smokeless Tobacco Status: No Alcohol use: none Drug use: none - Family History Mother Living Status: - Gastrointestinal Gastrointestinal: Present: as per HPI - Constitutional Constitutional: as per HPI - EENT Eyes: as per HPI Ears: Present: as per HPI Nose, mouth and throat: Present: as per HPI - Cardiovascular Cardiovascular ROS: Present: as per HPI - Respiratory Respiratory IM: Present: as per HPI - Genitourinary Genitourinary: Absent: change in color, Urinary frequency - Neurological ROS Neurological GI: Present: as per HPI - Hematologic/Lymphatic Hematologic/Lymphatic pediatric: Present: as per HPI - Musculoskeletal Musculoskeletal ROS GI: Present: as per HPI - Integumentary Integumentary GI: Present: as per HPI - Psychiatric ROS Psychiatric GI: Present: as per HPI - Endocrine Endocrine IM: Present: as per HPI - Constitutional Vitals: Temp Pulse Resp BP Pulse Ox 97.8 F 67 17 191/94 95 03/12/17 07:35 03/12/17 07:35 03/12/17 07:35 03/12/17 07:35 03/12/17 07:35 General appearance: Present: cooperative, A&O X 3, no acute distress, answers questions appropriately - Head Head exam: Present: atraumatic, normocephalic - Eye Eye exam: Present: normal appearance, sclera anicteric - ENT ENT exam: Present: mucous membranes dry - Neck Neck exam general surgery: Present: normal inspection, trachea midline - Respiratory Respiratory exam: Present: CTAB. Absent: rales, rhonchi - Cardiovascular Cardiovascular exam: Present: RRR, +S1, +S2 - GI/Abdominal GI/Abdominal exam: Present: soft, no peritoneal signs. Absent: distended, firm , guarding, tenderness - Rectal Rectal exam: Present: deferred - Extremities Exam Extremities exam: Present: warm - Neurological Exam Neurological exam: Present: no focal deficits - Psychiatric Psychiatric exam: Present: normal affect, normal mood - Skin Skin exam: Present: dry, intact, normal color, warm Results - Labs CBC & Chem 7: 03/12/17 09:08 03/12/17 03:29 Labs: Last Result Calcium 8.9 mg/dL (8.6-10.8) 03/12/17 03:29 Entire Visit Hgb 10.1 g/dL (12.9-16.9) L 03/12/17 09:08 Hct 30.5 % (37.5-50.1) L 03/12/17 09:08 PT 11.8 Seconds (9.4-12.1) 03/11/17 03:20 Total Bilirubin 0.5 mg/dL (0.2-1.2) 03/11/17 03:20 AST 13 Units/L (5-34) 03/11/17 03:20 ALT 16 Units/L (0-55) 03/11/17 03:20 - ABG ABG results: PT/INR, D-dimer PT 11.8 Seconds (9.4-12.1) 03/11/17 03:20 Consult Discharge Plan - Plan Instructions: Ciprofloxacin (By mouth), Metronidazole (By mouth), Diverticulosis (DC), Diverticulosis (GEN), Colorectal Polyps (DC), Colorectal Polyps (GEN) Additional Instructions: Dr. Ramos's office will call you at home with the results of you colonoscopy. Referrals: Jina Redman MD [Primary Care Provider] - 03/15/17 2:00 pm Prescriptions: Ciprofloxacin HCl [Cipro] 500 mg PO BID #10 tablet metroNIDAZOLE [Flagyl] 500 mg PO TID #15 tablet <Braden Ramos - Last Filed: 03/12/17 18:36> Date of Encounter: 03/12/17 Time of Encounter: 13:00 - Time Spent With Patient Total time spent is greater than 50% in coordination of care (as documented) at patient's floor/unit and/or counseling patient: GI History of Present Illness - Data of Consult Requesting Physician: Sravanthi Alexander - Consult Narrative History of present illness: Mr. Ramirez is a 72 year old male - Constitutional Vitals: Temp Pulse Resp BP Pulse Ox 98.6 F 70 16 127/67 93 03/12/17 16:03 03/12/17 16:03 03/12/17 16:03 03/12/17 16:03 03/12/17 16:03 Results - Labs CBC & Chem 7: 03/12/17 15:11 03/12/17 03:29 Labs: Last Result Calcium 8.9 mg/dL (8.6-10.8) 03/12/17 03:29 Entire Visit Hgb 10.1 g/dL (12.9-16.9) L 03/12/17 15:11 Hct 31.6 % (37.5-50.1) L 03/12/17 15:11 PT 11.8 Seconds (9.4-12.1) 03/11/17 03:20 Total Bilirubin 0.5 mg/dL (0.2-1.2) 03/11/17 03:20 AST 13 Units/L (5-34) 03/11/17 03:20 ALT 16 Units/L (0-55) 03/11/17 03:20 - ABG ABG results: PT/INR, D-dimer PT 11.8 Seconds (9.4-12.1) 03/11/17 03:20 - Attending Attestation I examined this patient and my medical decision-making was reviewed with the Resident Physician. I agree with the documented findings, disposition and treatment plan as described except to the extent set forth below.
--- NOTE | 2017-03-12 11:56 | Anesthesia Evaluation PreOp ---
Date of Encounter: 03/12/17 Time of Encounter: 11:50 - Past History Planned Operation: Colonoscopy Cardiac History: TX (EF-55% 3 vessel dx, medical therapy), HTN, Hyperlipidemia NURSING HOME AIDE History: Denies Any Significant HX Other Medical History: Denies Any Significant HX, GERD, Other (GI bleed, RA) Alcohol Use: none Drug use: none Medications and Allergies Amlodipine Besylate 10 mg PO DAILY 04/02/16 [History] Lisinopril/Hydrochlorothiazide [Zestoretic 20-12.5 mg Tablet] 2 tab PO QPM 04/02 [History] Metoprolol XL (24 HR) Succ [Toprol Xl] 100 mg PO DAILY 04/02/16 [History] Pantoprazole Sodium [Protonix] 40 mg PO Q12H #60 tablet. 04/04/16 [Rx] Aspirin 81 mg PO DAILY 08/16/16 [History] Gabapentin [Neurontin] 800 mg PO BID 03/11/17 [History] Oxycodone HCl/Acetaminophen [Percocet 10-325 mg Tablet] 1 tab PO Q4H PRN [History] Allergies Iodinated Contrast- Oral and IV Dye [Iodinated Contrast Media - IV Dye] Allergy (Verified 03/11/17 02:43) Hives pravastatin Allergy (Verified 03/11/17 02:43) See Comments tachycardia pregabalin [From Lyrica] Adverse Reaction (Verified 03/11/17 02:43) See Comments strange thoughts - Meds/Allergy Pre-op Review Medications Reviewed: Yes Allergies Reviewed: Yes Beta Blockers on Current Med List: Yes Anesthesia Results - Labs 03/12/17 09:08 03/12/17 03:29 ECHO 02/18/2015: EF 50-55%, with hypokinesis of basal inferior wall and basal- mid inferolateral wall with mild concentric LVH and diastolic dysfunction. No siginficant valvular dysfunction - Stress Nuclear 02/18/2015: large myocardial infarction throughout the inferior and inferolateral yao with mild eve-infarct ischemia - Report of left heart catheterization 07/26/[address] 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 EKG: image reviewed (SINUS RHYTHM WITH SINUS ARRHYTHMIA POSSIBLE RIGHT VENTRICULAR CONDUCTION DELAY) Anesthesia Exam O2 Sat Weight 112.945 kg O2 Sat by Pulse Oximetry 97 O2 Sat by Pulse Oximetry 96 O2 Sat by Pulse Oximetry 95 O2 Sat by Pulse Oximetry 98 O2 Sat by Pulse Oximetry 95 O2 Sat by Pulse Oximetry 98 O2 Sat by Pulse Oximetry 98 Vital Signs Temp Pulse Resp BP Pulse Ox 97.8 F 64 18 175/86 97 03/11/17 02:43 03/11/17 02:43 03/11/17 02:43 03/11/17 02:43 03/11/17 02:43 Vital Signs/O2 Sat, Most Current Temp Pulse Resp BP Pulse Ox 98.4 F 87 18 172/99 97 03/12/17 12:22 03/12/17 12:22 03/12/17 12:22 03/12/17 12:22 03/12/17 12:22 Height: 5'11'' Weight: 249# NPO (# of Hours): > 8 Hrss Pain Scale: 0 Pain Scale Used: Numeric (1 - 10) - HEENT Pupil (Motor): Pupils equal, EOMI Mallampati: III Teeth: Normal Oral Opening: Greater than 3 - NURSING HOME AIDE LOC: Oriented NURSING HOME AIDE Motor: Normal RUE, Normal LUE, Normal RLE, Normal LLE, Normal Face NURSING HOME AIDE Sensory: Normal: RUE, LUE, RLE, LLE, Face - Cardiac Rhythm: Irregular Murmur: None JVD: No Carotid Bruit: No - Pulmonary Breath Sounds: bilateral Clear Respiratory Effort: Symmetrical Anesthesia Assess/Plan ASA Score: 3 Modified Cowley Scale for Level of Consciousness: Cooperative, oriented, and tranquil Anesthetic Plan: MAC Autologous Blood: Yes Monitoring Plan: Standard Monitors Recovery Plan: PACU
[2017-03-12] MEDS ORDERED: 0.9 % Sodium Chloride 500 ML IVC SCH (12:30)
[2017-03-12 15:28] LABS: Hematocrit 31.6 % (37.5-50.1); Hemoglobin 10.1 g/dL (12.9-16.9)
[2017-03-12 16:04] VITALS: BP 127/67
--- NOTE | 2017-03-12 16:47 | Discharge Summary ---
Date of Encounter: 03/12/17 Time of Encounter: 16:42 - Discharge Diagnosis (1) Gastrointestinal bleeding, lower Priority: Primary Status: Acute (2) Diverticulosis Priority: Primary Status: Acute Qualifiers: Diverticulosis site: diverticulosis of large intestine Diverticulosis bleeding: diverticulosis with bleeding Qualified Code(s): K57.31 - Diverticulosis of large intestine without perforation or abscess with bleeding (3) CAD (coronary artery disease), [place] coronary artery Priority: Secondary Status: Chronic Qualifiers: [place] vs. transplanted heart: [place] heart Associated angina: without angina Qualified Code(s): I25.10 - Atherosclerotic heart disease of [place] coronary artery without angina pectoris (4) Hypertension Priority: Secondary Status: Chronic Qualifiers: Hypertension type: essential hypertension Qualified Code(s): I10 - Essential (primary) hypertension (5) Morbid obesity Priority: Secondary Status: Acute - Discharge Medications Prescriptions: Ciprofloxacin HCl [Cipro] 500 mg PO BID #10 tablet metroNIDAZOLE [Flagyl] 500 mg PO TID #15 tablet Home Medications: Amlodipine Besylate 10 mg PO DAILY 04/02/16 [History] Lisinopril/Hydrochlorothiazide [Zestoretic 20-12.5 mg Tablet] 2 tab PO QPM 04/02 [History] Metoprolol XL (24 HR) Succ [Toprol Xl] 100 mg PO DAILY 04/02/16 [History] Pantoprazole Sodium [Protonix] 40 mg PO Q12H #60 tablet. 04/04/16 [Rx] Gabapentin [Neurontin] 800 mg PO BID 03/11/17 [History] Oxycodone HCl/Acetaminophen [Percocet 10-325 mg Tablet] 1 tab PO Q4H PRN [History] Aspirin 81 mg PO DAILY #0 03/12/17 [Rx] Ciprofloxacin HCl [Cipro] 500 mg PO BID #10 tablet 03/12/17 [Rx] metroNIDAZOLE [Flagyl] 500 mg PO TID #15 tablet 03/12/17 [Rx] Allergies/Adverse Reactions: Allergies Iodinated Contrast- Oral and IV Dye [Iodinated Contrast Media - IV Dye] Allergy (Verified 03/11/17 02:43) Hives pravastatin Allergy (Verified 03/11/17 02:43) See Comments tachycardia pregabalin [From Lyrica] Adverse Reaction (Verified 03/11/17 02:43) See Comments strange thoughts Date of admission: 03/11/17 06:27 Primary care physician: Jina Redman, - Patient Status Disposition: Home, Self-Care Condition: Good Overall status at discharge: patient is back to baseline - Discharge Instructions Follow Up With: Jina Redman MD [Primary Care Provider] - 03/15/17 2:00 pm - Diet and Activity Activity: increase activity as tolerated Diet: low salt diet, other (soft low residue diet) Hospital course: Mr. Ramirez is a 72 year old male with a history of hypertension, CAD, recent upper GI bleed history who presents with acute onset of lower GI bleed. He reports symptoms starting at about 10:30 night prior to hospitalization where he had passage of red blood per rectum, associated with clots. He admits to associated lower abdominal discomfort, rates 5 out of 10, no radiation, no improving or relieving factors. Pt was admitted here and started him empirical abx with Cipro and Flagyl due to his diverticular bleeding with abdominal pain and slightly elevated WBC. Pt went for colonoscopy today which showed diverticulosis in the sigmoid colon, 3 mm non bleeding polyp in the rectum which got removed. His HB stayes stable and he is tolerating PO intake well, so will d/c him home today. Educated him about diverticulosis and diet modifications. Sent him home on 5 more days of PO abx. - Time Spent with Patient Total time spent providing and/or coordinating discharge services: - Constitutional Vitals: Temp Pulse Resp BP Pulse Ox 98.6 F 70 16 127/67 93 03/12/17 16:03 03/12/17 16:03 03/12/17 16:03 03/12/17 16:03 03/12/17 16:03 General appearance: Present: A&O X 3, pleasant, no acute distress, answers questions appropriately - Head Head exam: Present: atraumatic, normal inspection - Respiratory Respiratory exam: Present: decreased breath sounds, wheezes. Absent: respiratory distress, rhonchi - Cardiovascular Cardiovascular exam: Present: RRR, +S1, +S2. Absent: diastolic murmur, gallop, rubs, systolic murmur - GI/Abdominal GI/Abdominal exam: Present: normal bowel sounds, soft. Absent: rebound, rigid, tenderness - Extremities Exam Extremities exam: Absent: calf tenderness, pedal edema, tenderness - Neurological Exam Neurological exam: Present: alert, oriented X3 - Psychiatric Psychiatric exam: Present: normal affect, normal mood - VTE Documentation of Mechanical Device: Intermittent pneumatic compression device
[2017-03-12] MEDS ORDERED: *HR* Propofol 500 MG/50 ML BOTTLE IVC ONE (17:03)
[2017-03-12] MEDS ORDERED: *HR* Labetalol 20 MG/4 ML SYRINGE IVP ONE (17:03)
[2017-03-12] MEDS ORDERED: Lidocaine -MPF 2% 5 ML VIAL INFILT ONE (17:03)
== END 2017-03-12 17:04 | disposition home or self-care (01) | DRG 378 ==
LOC: 3BNU 02:42 → EMEROO 02:42 → 3BNU 06:46
PROVIDERS: ADMIT Internal Medicine Hematology & Oncology; ATTEND Nurse Practitioner Family

== ENCOUNTER 2019-08-04 12:51 | Inpatient (IN) ==
[2019-08-04] MEDS ORDERED: CeFAZolin Syr 2,000MG/20 ML 2,000 MG/20 ML SYRINGE IVPB ONE (13:44)
[2019-08-04] MEDS ORDERED: Ringers Solution, Lactated 1,000 ML IVC SCH ×2 (13:45→19:50)
[2019-08-04] MEDS ORDERED: Famotidine 20 MG/2 ML VIAL IVP ONE (14:42)
[2019-08-04] MEDS ORDERED: Acetaminophen IV 1,000 MG/100 ML INFUS..BTL IVPB ONE (14:42)
[2019-08-04] MEDS ORDERED: *HR* Midazolam HCl 2 MG/2 ML VIAL ONE ×2 (15:30→17:25)
[2019-08-04] MEDS ORDERED: *HR* FentaNYL (PF) 100 MCG/2 ML VIAL ONE (15:30)
[2019-08-04] MEDS ORDERED: *HR* Propofol 200 MG/20 ML VIAL IVP ONE (15:30)
[2019-08-04] MEDS ORDERED: Dexamethasone 4 MG/ML VIAL ONE (15:31)
[2019-08-04] MEDS ORDERED: Ondansetron 4 MG/2 ML VIAL ONE (15:31)
[2019-08-04] MEDS ORDERED: *HR* Succinylcholine 200 MG/10 ML VIAL IVP ONE (15:31)
[2019-08-04] MEDS ORDERED: Lidocaine -MPF 2% 2 ML VIAL ONE (15:31)
[2019-08-04] MEDS ORDERED: Lidocaine -MPF 4% 5 ML AMPUL ONE (15:34)
[2019-08-04] MEDS ORDERED: Ethanol\\Acetic Acid\\Na Ace\\Ben 1,000 ML IRRIG.SOLN IR ONE (15:51)
[2019-08-04] MEDS ORDERED: ROPIVACAINE/PF/NS 0.25% 1 EACH SYRINGE INTRAART ONE (16:02)
[2019-08-04] MEDS ORDERED: Ropivacaine/PF 0.5% 30 ML VIAL ONE (16:02)
[2019-08-04] MEDS ORDERED: *HR* Rocuronium Bromide 50 MG/5 ML VIAL ONE (16:14)
[2019-08-04] MEDS ORDERED: *HR* Enoxaparin 30 MG/0.3 ML SYRINGE SQ SCH (18:00)
[2019-08-04] MEDS ORDERED: Esmolol 100 MG/10 ML VIAL IVP ONE (18:14)
[2019-08-04] MEDS: *HR* HYDROmorphone 2 MG/ML SYRINGE IVP PRN ×4 (18:40→18:55)
[2019-08-04 19:45] LABS: Hematocrit 41.1 % (37.5-50.1); Hemoglobin 13.6 g/dL (12.9-16.9)
[2019-08-04] MEDS ORDERED: MOM Conc 10 ML UD.LIQ PO PRN (19:50)
[2019-08-04] MEDS ORDERED: Sennosides 8.6 MG TABLET PO PRN (19:50)
[2019-08-04] MEDS ORDERED: Naloxone 0.4 MG/ML INJ IVP PRN (19:50)
[2019-08-04] MEDS ORDERED: Temazepam 15 MG CAPSULE PO PRN (21:00)
[2019-08-04] MEDS ORDERED: Ondansetron 4 MG/2 ML VIAL IVP PRN (21:03)
[2019-08-04] MEDS ORDERED: *HR* OxyCODONE/APAP 5/325 TABLET PO PRN (21:04)
[2019-08-04] MEDS ORDERED: Lisinopril-HCTZ 20-12.5mg TABLET PO SCH (21:15)
[2019-08-04] MEDS: Lisinopril-HCTZ 20-12.5mg TABLET PO SCH (21:39)
[2019-08-04] MEDS: *HR* OxyCODONE Immed Rel 5 MG TABLET PO PRN (21:39)
[2019-08-05 02:09] LABS: Hematocrit 41.5 % (37.5-50.1); Hemoglobin 13.5 g/dL (12.9-16.9)
[2019-08-05 02:29] LABS: BUN/Creatinine Ratio 24 (6-26); Blood Urea Nitrogen 21 mg/dL (8-23); Carbon Dioxide 26 mEq/L (23-29); Chloride 99 mEq/L (98-107); Glucose 210 mg/dL (70-105); Osmolality,Calculated 289 (280-300); Potassium 3.7 mEq/L (3.5-5.1); Sodium 135 mEq/L (136-145); eGFR For African Americans > 60 (> 60); eGFR For Non-African Americans > 60 (> 60)
[2019-08-05] MEDS: *HR* OxyCODONE Immed Rel 5 MG TABLET PO PRN ×3 (03:09→11:25)
[2019-08-05] MEDS: *HR* Enoxaparin 30 MG/0.3 ML SYRINGE SQ SCH ×2 (05:49→17:53)
[2019-08-05] MEDS: amLODIPine 5 MG TABLET PO SCH (08:22)
[2019-08-05] MEDS ORDERED: *HR* OxyCODONE Immed Rel 5 MG TABLET PO PRN (12:36)
[2019-08-05] MEDS ORDERED: Acetaminophen 325 MG TABLET PO PRN (12:37)
[2019-08-05] MEDS ORDERED: tiZANidine 4 MG TABLET PO PRN (12:39)
[2019-08-05] MEDS: *HR* OxyCODONE/APAP 10/325 TABLET PO SCH ×3 (15:41→23:59)
[2019-08-05] MEDS: HYDROcodone BIT/Homatropine 5 MG TABLET PO PRN ×2 (17:05→22:08)
[2019-08-05] MEDS: Lisinopril-HCTZ 20-12.5mg TABLET PO SCH (17:05)
[2019-08-06] MEDS: HYDROcodone BIT/Homatropine 5 MG TABLET PO PRN ×6 (02:44→22:24)
[2019-08-06] MEDS: *HR* OxyCODONE/APAP 10/325 TABLET PO SCH ×5 (04:07→20:25)
[2019-08-06] MEDS: *HR* Enoxaparin 30 MG/0.3 ML SYRINGE SQ SCH ×2 (06:39→16:38)
[2019-08-06 06:58] LABS: Hematocrit 38.4 % (37.5-50.1); Hemoglobin 12.9 g/dL (12.9-16.9)
[2019-08-06 07:16] LABS: BUN/Creatinine Ratio 27 (6-26); Blood Urea Nitrogen 25 mg/dL (8-23); Carbon Dioxide 29 mEq/L (23-29); Chloride 96 mEq/L (98-107); Glucose 194 mg/dL (70-105); Osmolality,Calculated 294 (280-300); Potassium 3.3 mEq/L (3.5-5.1); Sodium 137 mEq/L (136-145); eGFR For African Americans > 60 (> 60); eGFR For Non-African Americans > 60 (> 60)
[2019-08-06] MEDS: amLODIPine 5 MG TABLET PO SCH (08:06)
[2019-08-06] MEDS: Lisinopril-HCTZ 20-12.5mg TABLET PO SCH (16:37)
[2019-08-06] MEDS: Chloraseptic Spray 177 ML BOTTLE MM PRN (21:47)
[2019-08-07] MEDS: *HR* OxyCODONE/APAP 10/325 TABLET PO SCH ×4 (00:15→12:25)
[2019-08-07] MEDS: HYDROcodone BIT/Homatropine 5 MG TABLET PO PRN ×3 (02:45→10:57)
[2019-08-07 03:13] LABS: Hematocrit 36.7 % (37.5-50.1); Hemoglobin 11.6 g/dL (12.9-16.9); Mean Corpuscular HGB Conc 31.6 g/dL (31.6-35.5); Mean Corpuscular Hemoglobin 28.4 pg (28.0-33.3); Mean Platelet Volume 10.4 fL (9.4-12.4); Platelet Count 210 K/mcL (140-400); Red Blood Count 4.08 M/mcL (4.19-5.50); Red Cell Distribution Width 13.8 % (11.5-14.5); White Blood Count 11.5 K/mcL (4.3-11.1)
[2019-08-07 03:32] LABS: BUN/Creatinine Ratio 26 (6-26); Blood Urea Nitrogen 25 mg/dL (8-23); Calcium 9.2 mg/dL (8.6-10.3); Carbon Dioxide 30 mEq/L (23-29); Chloride 94 mEq/L (98-107); Glucose 203 mg/dL (70-105); Osmolality,Calculated 294 (280-300); Potassium 3.1 mEq/L (3.5-5.1); Sodium 137 mEq/L (136-145); eGFR For African Americans > 60 (> 60); eGFR For Non-African Americans > 60 (> 60)
[2019-08-07] MEDS: Chloraseptic Spray 177 ML BOTTLE MM PRN (04:35)
[2019-08-07] MEDS: *HR* Enoxaparin 30 MG/0.3 ML SYRINGE SQ SCH (06:47)
[2019-08-07] MEDS: amLODIPine 5 MG TABLET PO SCH (07:43)
[2019-08-07] MEDS ORDERED: Potassium Citrate 10 MEQ TABLET.ER PO SCH (09:00)
[2019-08-07 14:04] VITALS: BP 141/83
== END 2019-08-07 14:38 | DRG 483 ==
LOC: SAMDAY 12:51 → 3NENU 19:49
PROVIDERS: ADMIT Orthopaedic Surgery; ATTEND Orthopaedic Surgery

== ENCOUNTER 2019-08-20 16:33 | Inpatient (IN) ==
[2019-08-20] MEDS ORDERED: 0.9 % Sodium Chloride 1,000 ML IVC ONE (16:45)
[2019-08-20 17:25] LABS: Basophils % 0.1 %; Hematocrit 31.8 % (37.5-50.1); Hemoglobin 10.5 g/dL (12.9-16.9); Immature Granulocytes % 1.6 % (0-4); Immature Platelets 3.7 % (1.1-6.1); Lymphocytes # 0.8 K/mcL (0.6-4.6); Lymphocytes % 3.5 %; Mean Corpuscular Hemoglobin 28.3 pg (28.0-33.3); Mean Corpuscular Volume 85.7 fL (83.0-100.0); Mean Platelet Volume 9.2 fL (9.4-12.4); Monocytes # 1.7 K/mcL (0.0-1.3); Monocytes % 7.7 %; Neutrophils # 18.7 K/mcL (1.6-8.9); Platelet Count 268 K/mcL (140-400); Red Blood Count 3.71 M/mcL (4.19-5.50); Red Cell Distribution Width 13.8 % (11.5-14.5); Segmented Neutrophils % 87.1 %; White Blood Count 21.5 K/mcL (4.3-11.1)
[2019-08-20 17:45] LABS: Alanine Aminotransferase 17 Units/L (7-52); Albumin 3.7 g/dL (3.5-5.7); Albumin/Globulin Ratio 1.1 (1.1-2.2); Alkaline Phosphatase 135 Units/L (34-104); Aspartate Amino Transferase 10 Units/L (13-39); BUN/Creatinine Ratio 20 (6-26); Bilirubin,Direct 0.6 mg/dL (0.0-0.2); Bilirubin,Indirect 1.1 mg/dL (0.0-1.0); Bilirubin,Total 1.7 mg/dL (0.3-1.0); Blood Urea Nitrogen 16 mg/dL (8-23); Calcium 8.8 mg/dL (8.6-10.3); Carbon Dioxide 28 mEq/L (23-29); Chloride 93 mEq/L (98-107); Globulin 3.4 g/dL (2.4-3.5); Glucose 189 mg/dL (70-105); Osmolality,Calculated 278 (280-300); Potassium 3.1 mEq/L (3.5-5.1); Sodium 131 mEq/L (136-145); Total Protein 7.1 g/dL (6.4-8.9); Troponin I 0.03 ng/mL (< 0.04); eGFR For African Americans > 60 (> 60); eGFR For Non-African Americans > 60 (> 60)
[2019-08-20] MEDS ORDERED: Piperacillin/Tazobactam 3.375 GM in 0.9 % Sodium Chloride Mini Bag 100 ML IVPB ONE (17:51)
[2019-08-20 17:58] LABS: Bacteria,Urine None Seen per hpf (None-Few); Bilirubin,Urine Small (Negative); Blood,Urine Large (Negative); Clarity,Urine Cloudy (Clear); Color,Urine Dark Yellow (Yellow); Glucose,Urine (UA) Normal (Normal); Hyaline Casts,Urine None Seen per lpf (None-Few); Ketones,Urine Trace mg/dL (Negative); Leukocyte Esterase,Urine Moderate (Negative); Nitrite,Urine Negative (Negative); Protein,Urine >=300 mg/dL (Neg-Trace); RBC,Urine TNTC per hpf (0-3); Specific Gravity,Urine 1.025 (1.010-1.025); Squamous Epithelial Cell,Urine Many per lpf (None-Few); WBC,Urine TNTC per hpf (0-3)
[2019-08-20] MEDS ORDERED: *HR* OxyCODONE/APAP 10/325 TABLET PO ONE (19:13)
[2019-08-20] MEDS ORDERED: Naloxone 0.4 MG/ML INJ IVP PRN (22:23)
[2019-08-20] MEDS ORDERED: 0.9 % Sodium Chloride 1,000 ML IVC SCH (22:30)
[2019-08-20] MEDS ORDERED: Potassium Chloride Elixir 20 MEQ/15 ML UDC PO ONE (23:08)
[2019-08-20 23:36] LABS: Gamma Glutamyl Transpeptidase 54 Units/L (7-64)
[2019-08-21 02:06] LABS: Basophils % 0.1 %; Eosinophils % 0.1 %; Hemoglobin 10.5 g/dL (12.9-16.9); Immature Granulocytes % 1.3 % (0-4); Lymphocytes # 0.5 K/mcL (0.6-4.6); Mean Corpuscular HGB Conc 32.8 g/dL (31.6-35.5); Mean Corpuscular Hemoglobin 28.5 pg (28.0-33.3); Mean Platelet Volume 9.9 fL (9.4-12.4); Monocytes # 1.6 K/mcL (0.0-1.3); Monocytes % 8.6 %; Neutrophils # 15.6 K/mcL (1.6-8.9); Platelet Count 273 K/mcL (140-400); Red Blood Count 3.68 M/mcL (4.19-5.50); Red Cell Distribution Width 13.9 % (11.5-14.5); Segmented Neutrophils % 86.9 %; White Blood Count 17.9 K/mcL (4.3-11.1)
[2019-08-21 02:28] LABS: Alanine Aminotransferase 16 Units/L (7-52); Albumin 3.6 g/dL (3.5-5.7); Albumin/Globulin Ratio 1.1 (1.1-2.2); Alkaline Phosphatase 133 Units/L (34-104); Aspartate Amino Transferase 10 Units/L (13-39); BUN/Creatinine Ratio 18 (6-26); Bilirubin,Total 1.6 mg/dL (0.3-1.0); Blood Urea Nitrogen 15 mg/dL (8-23); Calcium 8.7 mg/dL (8.6-10.3); Carbon Dioxide 26 mEq/L (23-29); Chloride 96 mEq/L (98-107); Globulin 3.4 g/dL (2.4-3.5); Glucose 207 mg/dL (70-105); Osmolality,Calculated 287 (280-300); Potassium 3.4 mEq/L (3.5-5.1); Sodium 135 mEq/L (136-145); eGFR For African Americans > 60 (> 60); eGFR For Non-African Americans > 60 (> 60)
[2019-08-21 02:30] LABS: % Iron Saturation 7 % (20-55); Iron 21 mcg/dL (65-175); Transferrin 224 mg/dL (203-362)
[2019-08-21 02:45] LABS: Ferritin 203 ng/mL (20-250)
[2019-08-21] MEDS: *HR* OxyCODONE Immed Rel 5 MG TABLET PO PRN (08:15)
[2019-08-21] MEDS: Piperacillin/Tazobactam 3.375 GM in 0.9 % Sodium Chloride Mini Bag 100 ML IVPB SCH ×3 (08:16→23:08)
[2019-08-21] MEDS ORDERED: *HR* Dextrose 50 % in Water (Syg) 50 ML SYRINGE IVP PRN (09:02)
[2019-08-21] MEDS ORDERED: Dextrose Gel 15 GM/37.5 ML TUBE PO PRN ×2 (09:02)
[2019-08-21] MEDS ORDERED: D5% in Water 1,000 ML IVC PRN (09:02)
[2019-08-21 09:45] LABS: Estimated Average Glucose 192 mg/dl
[2019-08-21] MEDS: *HR* OxyCODONE/APAP 10/325 TABLET PO PRN ×4 (09:55→21:19)
[2019-08-21] MEDS: 0.9 % Sodium Chloride w KCl 20 MEQ/1,000 ML MLS IVC SCH ×2 (09:56→21:18)
[2019-08-21] MEDS: Insulin LISPRO 300 UNITS/3 ML VIAL SQ SCH ×3 (13:01→20:41)
[2019-08-22] MEDS ORDERED: *HR* Metoprolol 5 MG/5 ML VIAL IVP ONE ×3 (01:55→06:00)
[2019-08-22] MEDS: *HR* OxyCODONE/APAP 10/325 TABLET PO PRN ×5 (02:17→23:55)
[2019-08-22 03:07] LABS: Alanine Aminotransferase 15 Units/L (7-52); Albumin 3.4 g/dL (3.5-5.7); Alkaline Phosphatase 118 Units/L (34-104); Aspartate Amino Transferase 12 Units/L (13-39); BUN/Creatinine Ratio 18 (6-26); Bilirubin,Total 0.8 mg/dL (0.3-1.0); Blood Urea Nitrogen 14 mg/dL (8-23); Calcium 8.4 mg/dL (8.6-10.3); Carbon Dioxide 24 mEq/L (23-29); Chloride 101 mEq/L (98-107); Globulin 3.4 g/dL (2.4-3.5); Glucose 170 mg/dL (70-105); Magnesium 1.8 mg/dL (1.6-2.6); Osmolality,Calculated 288 (280-300); Potassium 3.3 mEq/L (3.5-5.1); Sodium 137 mEq/L (136-145); Total Protein 6.8 g/dL (6.4-8.9); eGFR For African Americans > 60 (> 60); eGFR For Non-African Americans > 60 (> 60)
[2019-08-22 03:08] LABS: Troponin I < 0.03 ng/mL (< 0.04)
[2019-08-22 06:58] LABS: Hematocrit 33.6 % (37.5-50.1); Hemoglobin 10.4 g/dL (12.9-16.9); Mean Corpuscular Hemoglobin 28.4 pg (28.0-33.3); Mean Corpuscular Volume 91.8 fL (83.0-100.0); Mean Platelet Volume 9.9 fL (9.4-12.4); Platelet Count 275 K/mcL (140-400); Red Blood Count 3.66 M/mcL (4.19-5.50); White Blood Count 12.9 K/mcL (4.3-11.1)
[2019-08-22] MEDS: Piperacillin/Tazobactam 3.375 GM in 0.9 % Sodium Chloride Mini Bag 100 ML IVPB SCH ×2 (08:36→22:34)
[2019-08-22] MEDS: Insulin LISPRO 300 UNITS/3 ML VIAL SQ SCH ×4 (08:48→20:44)
[2019-08-22] MEDS ORDERED: Metoprolol XL (24 HR) Succ 25 MG TAB.ER.24H PO SCH ×2 (09:00→21:00)
[2019-08-22] MEDS: 0.9 % Sodium Chloride w KCl 20 MEQ/1,000 ML MLS IVC SCH (10:52)
[2019-08-22] MEDS ORDERED: *HR* Heparin 5,000 UNIT/ML VIAL IVP ONE (11:42)
[2019-08-22] MEDS ORDERED: *HR* Heparin 5,000 UNIT/ML VIAL IVP PRN (11:42)
[2019-08-22] MEDS: Aspirin Enteric Coated 81 MG Tablet PO SCH (13:54)
[2019-08-22] MEDS: Heparin 25,000 UNIT/250 ML D5W 25,000 UNIT/250 ML IV.SOLN IVC SCH (15:29)
[2019-08-22] MEDS ORDERED: Perflutren Lipid Microsphere 1.3 ML in 0.9 % Sodium Chloride 8.7 ML IVP ONE (18:05)
[2019-08-22] MEDS: *HR* OxyCODONE Immed Rel 5 MG TABLET PO PRN (22:34)
[2019-08-22] MEDS: *HR* Heparin 5,000 UNIT/ML VIAL IVP PRN (22:37)
[2019-08-23] MEDS: Piperacillin/Tazobactam 3.375 GM in 0.9 % Sodium Chloride Mini Bag 100 ML IVPB SCH ×2 (00:40→09:05)
[2019-08-23] MEDS: Insulin LISPRO 300 UNITS/3 ML VIAL SQ SCH ×4 (01:56→17:13)
[2019-08-23] MEDS: *HR* OxyCODONE/APAP 10/325 TABLET PO PRN ×5 (04:04→21:18)
[2019-08-23 05:13] LABS: Hematocrit 29.9 % (37.5-50.1); Hemoglobin 9.3 g/dL (12.9-16.9); Mean Corpuscular HGB Conc 31.1 g/dL (31.6-35.5); Mean Corpuscular Hemoglobin 28.4 pg (28.0-33.3); Mean Corpuscular Volume 91.4 fL (83.0-100.0); Mean Platelet Volume 10.1 fL (9.4-12.4); Platelet Count 237 K/mcL (140-400); Red Blood Count 3.27 M/mcL (4.19-5.50); Red Cell Distribution Width 14.2 % (11.5-14.5); White Blood Count 8.1 K/mcL (4.3-11.1)
[2019-08-23] MEDS: 0.9 % Sodium Chloride w KCl 20 MEQ/1,000 ML MLS IVC SCH ×3 (05:22→12:40)
[2019-08-23] MEDS: *HR* OxyCODONE Immed Rel 5 MG TABLET PO PRN ×2 (05:22→14:24)
[2019-08-23] MEDS: *HR* Heparin 5,000 UNIT/ML VIAL IVP PRN (05:30)
[2019-08-23 05:33] LABS: BUN/Creatinine Ratio 17 (6-26); Blood Urea Nitrogen 13 mg/dL (8-23); Calcium 8.3 mg/dL (8.6-10.3); Carbon Dioxide 26 mEq/L (23-29); Chloride 104 mEq/L (98-107); Glucose 151 mg/dL (70-105); Magnesium 1.8 mg/dL (1.6-2.6); Osmolality,Calculated 287 (280-300); Potassium 3.4 mEq/L (3.5-5.1); Sodium 137 mEq/L (136-145); eGFR For African Americans > 60 (> 60); eGFR For Non-African Americans > 60 (> 60)
[2019-08-23] MEDS: Heparin 25,000 UNIT/250 ML D5W 25,000 UNIT/250 ML IV.SOLN IVC SCH ×2 (06:55→17:46)
[2019-08-23] MEDS: amLODIPine 5 MG TABLET PO SCH (09:04)
[2019-08-23] MEDS: Aspirin Enteric Coated 81 MG Tablet PO SCH (09:04)
[2019-08-23] MEDS: Metoprolol XL (24 HR) Succ 25 MG TAB.ER.24H PO SCH ×2 (09:04→21:17)
[2019-08-23] MEDS: Nitrofurantoin (BID) 100 MG CAPSULE PO SCH (17:12)
[2019-08-23] MEDS: Insulin DETEMIR 100 UNIT/ML X5UNITS SQ SCH (21:17)
[2019-08-24] MEDS: *HR* OxyCODONE/APAP 10/325 TABLET PO PRN ×6 (02:02→21:39)
[2019-08-24] MEDS: *HR* OxyCODONE Immed Rel 5 MG TABLET PO PRN ×2 (02:58→12:12)
[2019-08-24] MEDS ORDERED: *HR* Metoprolol 5 MG/5 ML VIAL IVP ONE (04:46)
[2019-08-24 05:16] LABS: BUN/Creatinine Ratio 13 (6-26); Blood Urea Nitrogen 9 mg/dL (8-23); Calcium 8.8 mg/dL (8.6-10.3); Carbon Dioxide 26 mEq/L (23-29); Chloride 102 mEq/L (98-107); Glucose 186 mg/dL (70-105); Magnesium 1.7 mg/dL (1.6-2.6); Osmolality,Calculated 286 (280-300); Phosphorous 2.8 mg/dL (2.7-4.5); Potassium 3.4 mEq/L (3.5-5.1); Sodium 136 mEq/L (136-145); eGFR For African Americans > 60 (> 60); eGFR For Non-African Americans > 60 (> 60)
[2019-08-24] MEDS: Heparin 25,000 UNIT/250 ML D5W 25,000 UNIT/250 ML IV.SOLN IVC SCH ×2 (05:55→16:41)
[2019-08-24] MEDS ORDERED: hydrALAZINE 25 MG TABLET PO SCH (08:00)
[2019-08-24] MEDS: Nitrofurantoin (BID) 100 MG CAPSULE PO SCH ×2 (08:16→16:37)
[2019-08-24] MEDS: Fenofibrate 54 MG TABLET PO SCH (08:18)
[2019-08-24] MEDS: amLODIPine 5 MG TABLET PO SCH (08:18)
[2019-08-24] MEDS: Aspirin Enteric Coated 81 MG Tablet PO SCH (08:18)
[2019-08-24] MEDS: Insulin DETEMIR 100 UNIT/ML X5UNITS SQ SCH ×2 (08:19→21:38)
[2019-08-24] MEDS: Metoprolol XL (24 HR) Succ 25 MG TAB.ER.24H PO SCH (08:19)
[2019-08-24] MEDS: Insulin LISPRO 300 UNITS/3 ML VIAL SQ SCH ×3 (08:19→16:38)
[2019-08-24] MEDS: Metoprolol XL (24 HR) Succ 50 MG TAB.ER.24H PO SCH (10:20)
[2019-08-24] MEDS: predniSONE 20 MG TABLET PO SCH (21:38)
[2019-08-25] MEDS: *HR* OxyCODONE Immed Rel 5 MG TABLET PO PRN ×4 (00:06→23:31)
[2019-08-25] MEDS: Insulin LISPRO 300 UNITS/3 ML VIAL SQ SCH ×5 (00:35→20:17)
[2019-08-25] MEDS: *HR* Labetalol 20 MG/4 ML SYRINGE IVP PRN ×2 (04:07→10:04)
[2019-08-25] MEDS: *HR* OxyCODONE/APAP 10/325 TABLET PO PRN ×5 (04:08→21:43)
[2019-08-25] MEDS: Heparin 25,000 UNIT/250 ML D5W 25,000 UNIT/250 ML IV.SOLN IVC SCH (04:38)
[2019-08-25 04:42] LABS: Basophils # 0.1 K/mcL (0.0-0.2); Basophils % 0.7 %; Eosinophils % 0.3 %; Hematocrit 34.3 % (37.5-50.1); Hemoglobin 10.6 g/dL (12.9-16.9); Immature Granulocytes % 3.1 % (0-4); Lymphocytes # 0.6 K/mcL (0.6-4.6); Lymphocytes % 5.8 %; Mean Corpuscular HGB Conc 30.9 g/dL (31.6-35.5); Mean Corpuscular Volume 90.7 fL (83.0-100.0); Monocytes # 0.3 K/mcL (0.0-1.3); Monocytes % 2.6 %; Neutrophils # 9.2 K/mcL (1.6-8.9); Platelet Count 304 K/mcL (140-400); Red Blood Count 3.78 M/mcL (4.19-5.50); Red Cell Distribution Width 14.3 % (11.5-14.5); Segmented Neutrophils % 87.5 %; White Blood Count 10.5 K/mcL (4.3-11.1)
[2019-08-25 04:56] LABS: BUN/Creatinine Ratio 14 (6-26); Blood Urea Nitrogen 11 mg/dL (8-23); Calcium 9.2 mg/dL (8.6-10.3); Carbon Dioxide 26 mEq/L (23-29); Chloride 98 mEq/L (98-107); Glucose 224 mg/dL (70-105); Magnesium 1.9 mg/dL (1.6-2.6); Osmolality,Calculated 286 (280-300); Phosphorous 3.4 mg/dL (2.7-4.5); Potassium 4.1 mEq/L (3.5-5.1); Sodium 135 mEq/L (136-145); eGFR For African Americans > 60 (> 60); eGFR For Non-African Americans > 60 (> 60)
[2019-08-25] MEDS: Aspirin Enteric Coated 81 MG Tablet PO SCH (08:05)
[2019-08-25] MEDS: Metoprolol XL (24 HR) Succ 50 MG TAB.ER.24H PO SCH (08:06)
[2019-08-25] MEDS: amLODIPine 5 MG TABLET PO SCH (08:06)
[2019-08-25] MEDS: Furosemide 20 MG TABLET PO SCH (08:06)
[2019-08-25] MEDS: Fenofibrate 54 MG TABLET PO SCH (08:06)
[2019-08-25] MEDS: Nitrofurantoin (BID) 100 MG CAPSULE PO SCH ×2 (08:06→17:34)
[2019-08-25] MEDS: Insulin DETEMIR 100 UNIT/ML X5UNITS SQ SCH ×2 (08:10→20:18)
[2019-08-25] MEDS ORDERED: predniSONE 20 MG TABLET PO ONE (09:00)
[2019-08-25] MEDS ORDERED: 0.9 % Sodium Chloride 1,000 ML IVC ONE (09:48)
[2019-08-25] MEDS ORDERED: Heparin 1,000 UNITS/500 mL 500 ML ONE (09:58)
[2019-08-25] MEDS ORDERED: 0.9 % Sodium Chloride 2,000 ML ONE (09:58)
[2019-08-25] MEDS ORDERED: *HR* Heparin 10,000 UNIT/10 ML VIAL ONE (09:58)
[2019-08-25] MEDS ORDERED: ISOVUE-370 200 ML INFUS..BTL ONE ×2 (09:59)
[2019-08-25] MEDS ORDERED: Nitroglycerin 1,000 MCG/10 ML VIAL IV ONE (09:59)
[2019-08-25] MEDS: 0.9 % Sodium Chloride 1,000 ML IVC SCH ×2 (10:04→23:31)
[2019-08-25] MEDS ORDERED: Verapamil 5 MG/2 ML VIAL ONE (10:45)
[2019-08-25] MEDS ORDERED: *HR* FentaNYL (PF) 100 MCG/2 ML VIAL ONE (10:46)
[2019-08-25] MEDS ORDERED: *HR* Midazolam HCl 2 MG/2 ML VIAL ONE (10:59)
[2019-08-25] MEDS: predniSONE 20 MG TABLET PO SCH (20:17)
[2019-08-26] MEDS: *HR* OxyCODONE/APAP 10/325 TABLET PO PRN ×2 (03:59→09:01)
[2019-08-26 05:40] LABS: BUN/Creatinine Ratio 29 (6-26); Blood Urea Nitrogen 24 mg/dL (8-23); Carbon Dioxide 25 mEq/L (23-29); Chloride 101 mEq/L (98-107); Glucose 225 mg/dL (70-105); Osmolality,Calculated 291 (280-300); Phosphorous 3.5 mg/dL (2.7-4.5); Potassium 4.2 mEq/L (3.5-5.1); Sodium 135 mEq/L (136-145); eGFR For African Americans > 60 (> 60); eGFR For Non-African Americans > 60 (> 60)
[2019-08-26 07:48] VITALS: BP 146/73
[2019-08-26] MEDS: amLODIPine 5 MG TABLET PO SCH (08:50)
[2019-08-26] MEDS: Metoprolol XL (24 HR) Succ 50 MG TAB.ER.24H PO SCH (08:50)
[2019-08-26] MEDS: Aspirin Enteric Coated 81 MG Tablet PO SCH (08:51)
[2019-08-26] MEDS: Nitrofurantoin (BID) 100 MG CAPSULE PO SCH (08:51)
[2019-08-26] MEDS: Fenofibrate 54 MG TABLET PO SCH (08:51)
[2019-08-26] MEDS: Furosemide 20 MG TABLET PO SCH (08:51)
[2019-08-26] MEDS: Insulin LISPRO 300 UNITS/3 ML VIAL SQ SCH (08:52)
[2019-08-26] MEDS: Insulin DETEMIR 100 UNIT/ML X5UNITS SQ SCH (08:54)
== END 2019-08-26 12:12 | disposition home or self-care (01) | DRG 872 ==
LOC: 3BNU 16:33 → EMEROOARM 16:33 → 3BNU 22:58 → SUATTDRO 08-22 15:32 → 2NNU 08-22 23:24
PROVIDERS: ADMIT Internal Medicine; ATTEND Internal Medicine

== ENCOUNTER 2019-09-13 15:03 | Observation (INO) ==
[2019-09-13] MEDS ORDERED: Ondansetron 4 MG/2 ML VIAL IVP ONE (15:18)
[2019-09-13] MEDS ORDERED: *HR* FentaNYL (PF) 100 MCG/2 ML VIAL IVP ONE (15:18)
[2019-09-13] MEDS ORDERED: Tdap (Boostrix) Vaccine 0.5 ML SYRINGE IM ONE (15:18)
[2019-09-13] MEDS ORDERED: 0.9 % Sodium Chloride 1,000 ML IVC ONE (15:22)
[2019-09-13] MEDS ORDERED: Isovue-370 500 ML BOTTLE IVP ONE (15:23)
[2019-09-13] MEDS ORDERED: methylPREDNISolone 125 MG/2 ML VIAL IVP ONE (15:24)
[2019-09-13 15:40] LABS: INR 1.2; Prothrombin Time 14.1 Seconds (9.4-12.1)
[2019-09-13 15:42] LABS: Basophils % 0.2 %; Eosinophils % 0.3 %; Hematocrit 41.2 % (37.5-50.1); Hemoglobin 12.8 g/dL (12.9-16.9); Immature Granulocytes % 0.8 % (0-4); Lymphocytes # 0.9 K/mcL (0.6-4.6); Lymphocytes % 6.4 %; Mean Corpuscular HGB Conc 31.1 g/dL (31.6-35.5); Mean Corpuscular Hemoglobin 27.8 pg (28.0-33.3); Mean Corpuscular Volume 89.4 fL (83.0-100.0); Mean Platelet Volume 10.2 fL (9.4-12.4); Monocytes # 1.1 K/mcL (0.0-1.3); Monocytes % 7.7 %; Neutrophils # 11.5 K/mcL (1.6-8.9); Platelet Count 249 K/mcL (140-400); Red Blood Count 4.61 M/mcL (4.19-5.50); Red Cell Distribution Width 14.5 % (11.5-14.5); Segmented Neutrophils % 84.6 %; White Blood Count 13.6 K/mcL (4.3-11.1)
[2019-09-13 16:05] LABS: BUN/Creatinine Ratio 20 (6-26); Blood Urea Nitrogen 17 mg/dL (8-23); Calcium 9.3 mg/dL (8.6-10.3); Carbon Dioxide 25 mEq/L (23-29); Chloride 99 mEq/L (98-107); Glucose 237 mg/dL (70-105); Osmolality,Calculated 295 (280-300); Potassium 3.1 mEq/L (3.5-5.1); Sodium 138 mEq/L (136-145); eGFR For African Americans > 60 (> 60); eGFR For Non-African Americans > 60 (> 60)
[2019-09-13 16:08] LABS: Troponin I 0.05 ng/mL (< 0.04)
[2019-09-13] MEDS ORDERED: *HR* HYDROmorphone (PF) 1 MG/ML SYRINGE IVP ONE ×2 (17:16→18:51)
[2019-09-13 17:51] LABS: Bilirubin,Urine Negative (Negative); Blood,Urine Negative (Negative); Clarity,Urine Clear (Clear); Color,Urine Yellow (Yellow); Glucose,Urine (UA) 100 mg/dL (Normal); Ketones,Urine Negative (Negative); Leukocyte Esterase,Urine Negative (Negative); Nitrite,Urine Negative (Negative); PH,Urine 6.5 pH Units (5.0-8.0); Protein,Urine 100 mg/dL (Neg-Trace); Specific Gravity,Urine > 1.030 (1.010-1.025); Urobilinogen,Urine Normal (Normal)
[2019-09-13 17:54] LABS: Bacteria,Urine None Seen per hpf (None-Few); Hyaline Casts,Urine None Seen per lpf (None-Few); RBC,Urine 0-3 per hpf (0-3); Squamous Epithelial Cell,Urine Many per lpf (None-Few); WBC,Urine 0-3 per hpf (0-3)
[2019-09-13] MEDS ORDERED: 0.9 % Sodium Chloride 500 ML ONE (18:44)
[2019-09-13] MEDS ORDERED: Ondansetron 4 MG/2 ML VIAL IVP PRN (20:07)
[2019-09-13] MEDS ORDERED: Naloxone 0.4 MG/ML INJ IVP PRN (20:07)
[2019-09-13] MEDS ORDERED: *HR* Dextrose 50 % in Water (Syg) 50 ML SYRINGE IVP PRN (20:10)
[2019-09-13] MEDS ORDERED: D5% in Water 1,000 ML IVC PRN (20:10)
[2019-09-13] MEDS ORDERED: Dextrose Gel 15 GM/37.5 ML TUBE PO PRN ×2 (20:10)
[2019-09-13] MEDS: Gabapentin 400 MG CAPSULE PO SCH (22:17)
[2019-09-13] MEDS: Metoprolol XL (24 HR) Succ 50 MG TAB.ER.24H PO SCH (22:18)
[2019-09-13] MEDS: Lisinopril 20 MG TABLET PO SCH (22:18)
[2019-09-13] MEDS: Insulin DETEMIR 100 UNIT/ML X5UNITS SQ SCH (22:21)
[2019-09-13] MEDS: Insulin LISPRO 300 UNITS/3 ML VIAL SQ SCH (22:22)
[2019-09-13] MEDS: amLODIPine 5 MG TABLET PO SCH (22:27)
[2019-09-13] MEDS: Acetaminophen 325 MG TABLET PO SCH (23:43)
[2019-09-14 02:48] LABS: Basophils % 0.1 %; Hematocrit 38.7 % (37.5-50.1); Hemoglobin 12.2 g/dL (12.9-16.9); Immature Granulocytes % 1.2 % (0-4); Lymphocytes # 0.5 K/mcL (0.6-4.6); Lymphocytes % 3.5 %; Mean Corpuscular HGB Conc 31.5 g/dL (31.6-35.5); Mean Corpuscular Hemoglobin 27.5 pg (28.0-33.3); Mean Corpuscular Volume 87.4 fL (83.0-100.0); Mean Platelet Volume 10.2 fL (9.4-12.4); Monocytes # 0.5 K/mcL (0.0-1.3); Monocytes % 4.1 %; Neutrophils # 11.6 K/mcL (1.6-8.9); Platelet Count 260 K/mcL (140-400); Red Blood Count 4.43 M/mcL (4.19-5.50); Red Cell Distribution Width 14.6 % (11.5-14.5); Segmented Neutrophils % 91.1 %; White Blood Count 12.7 K/mcL (4.3-11.1)
[2019-09-14 02:53] LABS: INR 1.2; Prothrombin Time 13.3 Seconds (9.4-12.1)
[2019-09-14 02:56] LABS: Activated Partial Thrombo Time 29.4 Seconds (26.0-36.0)
[2019-09-14 03:10] LABS: Alanine Aminotransferase 10 Units/L (7-52); Albumin 3.7 g/dL (3.5-5.7); Albumin/Globulin Ratio 1.2 (1.1-2.2); Alkaline Phosphatase 113 Units/L (34-104); Aspartate Amino Transferase 8 Units/L (13-39); BUN/Creatinine Ratio 21 (6-26); Bilirubin,Total 0.7 mg/dL (0.3-1.0); Blood Urea Nitrogen 20 mg/dL (8-23); Carbon Dioxide 25 mEq/L (23-29); Chloride 100 mEq/L (98-107); Globulin 3.1 g/dL (2.4-3.5); Glucose 337 mg/dL (70-105); Magnesium 1.6 mg/dL (1.6-2.6); Osmolality,Calculated 294 (280-300); Potassium 4.1 mEq/L (3.5-5.1); Sodium 134 mEq/L (136-145); Total Protein 6.8 g/dL (6.4-8.9); eGFR For African Americans > 60 (> 60); eGFR For Non-African Americans > 60 (> 60)
[2019-09-14] MEDS: Acetaminophen 325 MG TABLET PO SCH ×4 (06:13→23:27)
[2019-09-14 06:22] LABS: Adenovirus Not Detected (Not Detect); Bordetella Pertussis Not Detected (Not Detect); Chlamydophila pneumoniae Not Detected (Not Detect); Coronavirus 229E Not Detected (Not Detect); Coronavirus HKU1 Not Detected (Not Detect); Coronavirus NL63 Not Detected (Not Detect); Coronavirus OC43 Not Detected (Not Detect); Human Metapneumovirus Not Detected (Not Detect); Human Rhinovirus/Enterovirus Not Detected (Not Detect); Influenza B Not Detected (Not Detect); Mycoplasma pneumoniae Not Detected (Not Detect); Parainfluenza Virus 1 Not Detected (Not Detect); Parainfluenza Virus 2 Not Detected (Not Detect); Parainfluenza Virus 3 Not Detected (Not Detect); Parainfluenza Virus 4 Not Detected (Not Detect); Respiratory Syncytial Virus Not Detected (Not Detect)
[2019-09-14 06:24] LABS: Influenza A Subtype 2009 H1 DETECTED (Not Detect)
[2019-09-14] MEDS: Insulin LISPRO 300 UNITS/3 ML VIAL SQ SCH ×3 (08:53→16:32)
[2019-09-14] MEDS: 0.9 % Sodium Chloride 1,000 ML IVC SCH ×3 (08:54→18:31)
[2019-09-14] MEDS: amLODIPine 5 MG TABLET PO SCH (08:56)
[2019-09-14] MEDS: Aspirin Enteric Coated 81 MG Tablet PO SCH (08:56)
[2019-09-14] MEDS: Metoprolol XL (24 HR) Succ 50 MG TAB.ER.24H PO SCH (08:56)
[2019-09-14] MEDS: Fenofibrate 54 MG TABLET PO SCH (08:56)
[2019-09-14] MEDS: Lisinopril 20 MG TABLET PO SCH (08:56)
[2019-09-14] MEDS: Gabapentin 400 MG CAPSULE PO SCH ×3 (08:57→20:31)
[2019-09-14] MEDS ORDERED: Furosemide 20 MG TABLET PO SCH (09:00)
[2019-09-14] MEDS: Insulin DETEMIR 100 UNIT/ML X5UNITS SQ SCH (20:31)
[2019-09-15 01:30] LABS: Basophils % 0.2 %; Eosinophils # 0.1 K/mcL (0.0-0.6); Eosinophils % 0.7 %; Hematocrit 34.5 % (37.5-50.1); Immature Granulocytes % 0.6 % (0-4); Lymphocytes # 1.7 K/mcL (0.6-4.6); Lymphocytes % 13.2 %; Mean Corpuscular HGB Conc 30.1 g/dL (31.6-35.5); Mean Corpuscular Hemoglobin 27.9 pg (28.0-33.3); Mean Corpuscular Volume 92.5 fL (83.0-100.0); Mean Platelet Volume 10.3 fL (9.4-12.4); Monocytes # 1.3 K/mcL (0.0-1.3); Monocytes % 9.9 %; Neutrophils # 9.8 K/mcL (1.6-8.9); Platelet Count 233 K/mcL (140-400); Red Blood Count 3.73 M/mcL (4.19-5.50); Red Cell Distribution Width 14.7 % (11.5-14.5); Segmented Neutrophils % 75.4 %
[2019-09-15 01:31] LABS: Hemoglobin 10.4 g/dL (12.9-16.9)
[2019-09-15 01:52] LABS: BUN/Creatinine Ratio 33 (6-26); Blood Urea Nitrogen 32 mg/dL (8-23); Calcium 8.5 mg/dL (8.6-10.3); Carbon Dioxide 26 mEq/L (23-29); Chloride 102 mEq/L (98-107); Glucose 242 mg/dL (70-105); Magnesium 1.8 mg/dL (1.6-2.6); Osmolality,Calculated 299 (280-300); Phosphorous 3.2 mg/dL (2.7-4.5); Potassium 3.4 mEq/L (3.5-5.1); Sodium 137 mEq/L (136-145); eGFR For African Americans > 60 (> 60); eGFR For Non-African Americans > 60 (> 60)
[2019-09-15] MEDS: 0.9 % Sodium Chloride 1,000 ML IVC SCH (04:26)
[2019-09-15] MEDS: Acetaminophen 325 MG TABLET PO SCH ×2 (06:01→12:23)
[2019-09-15] MEDS: Potassium Chloride Elixir 20 MEQ/15 ML UDC PO SCH ×2 (10:00→12:23)
[2019-09-15] MEDS: Insulin LISPRO 300 UNITS/3 ML VIAL SQ SCH ×2 (10:00→12:23)
[2019-09-15] MEDS: Gabapentin 400 MG CAPSULE PO SCH (10:01)
[2019-09-15] MEDS: Aspirin Enteric Coated 81 MG Tablet PO SCH (10:01)
[2019-09-15] MEDS: Fenofibrate 54 MG TABLET PO SCH (10:01)
[2019-09-15] MEDS: Lisinopril 20 MG TABLET PO SCH (10:01)
[2019-09-15] MEDS: Metoprolol XL (24 HR) Succ 50 MG TAB.ER.24H PO SCH (10:02)
[2019-09-15] MEDS: amLODIPine 5 MG TABLET PO SCH (10:02)
[2019-09-15 11:46] VITALS: BP 159/82
== END 2019-09-15 15:53 | disposition home or self-care (01) ==
LOC: 2ANU 15:03 → EMEROOARM 15:03 → 2ANU 20:00
PROVIDERS: ADMIT Student in an Organized Health Care Education/Training Program; ATTEND Student in an Organized Health Care Education/Training Program

== ENCOUNTER 2020-03-15 00:53 | Observation (INO) ==
[2020-03-15] MEDS ORDERED: Isovue-370 500 ML BOTTLE IVP ONE (01:20)
[2020-03-15] MEDS ORDERED: methylPREDNISolone 125 MG/2 ML VIAL IVP ONE (01:20)
[2020-03-15] MEDS ORDERED: Piperacillin/Tazobactam 3.375 GM in Water for inj. (sterile) 20 ML IVP ONE (01:21)
[2020-03-15 01:54] LABS: Basophils % 0.2 %; Eosinophils % 0.2 %; Hematocrit 38.9 % (37.5-50.1); Immature Granulocytes % 0.5 % (0-4); Lymphocytes # 0.7 K/mcL (0.6-4.6); Mean Corpuscular HGB Conc 30.8 g/dL (31.6-35.5); Mean Corpuscular Hemoglobin 27.8 pg (28.0-33.3); Monocytes # 1.3 K/mcL (0.0-1.3); Monocytes % 7.6 %; Neutrophils # 14.4 K/mcL (1.6-8.9); Platelet Count 206 K/mcL (140-400); Red Blood Count 4.32 M/mcL (4.19-5.50); Red Cell Distribution Width 13.5 % (11.5-14.5); Segmented Neutrophils % 87.5 %; White Blood Count 16.4 K/mcL (4.3-11.1)
[2020-03-15 02:17] LABS: Alanine Aminotransferase 31 Units/L (7-52); Albumin 4.1 g/dL (3.5-5.7); Albumin/Globulin Ratio 1.5 (1.1-2.2); Alkaline Phosphatase 132 Units/L (34-104); Aspartate Amino Transferase 19 Units/L (13-39); BUN/Creatinine Ratio 26 (6-26); Bilirubin,Direct 0.2 mg/dL (0.0-0.2); Bilirubin,Indirect 0.7 mg/dL (0.0-1.0); Bilirubin,Total 0.9 mg/dL (0.3-1.0); Blood Urea Nitrogen 19 mg/dL (8-23); Carbon Dioxide 27 mEq/L (23-29); Chloride 101 mEq/L (98-107); Globulin 2.8 g/dL (2.4-3.5); Glucose 200 mg/dL (70-105); Magnesium 1.7 mg/dL (1.6-2.6); Osmolality,Calculated 290 (280-300); Phosphorous 2.7 mg/dL (2.7-4.5); Potassium 3.5 mEq/L (3.5-5.1); Sodium 136 mEq/L (136-145); Total Protein 6.9 g/dL (6.4-8.9); Troponin I < 0.03 ng/mL (< 0.04); eGFR For African Americans > 60 (> 60); eGFR For Non-African Americans > 60 (> 60)
[2020-03-15] MEDS ORDERED: Morphine Sulfate 2 MG/ML SYRINGE IVP ONE (03:13)
[2020-03-15] MEDS ORDERED: Tdap (Boostrix) Vaccine 0.5 ML SYRINGE IM ONE (05:31)
[2020-03-15] MEDS ORDERED: D5% in Water 1,000 ML IVC PRN (05:40)
[2020-03-15] MEDS ORDERED: *HR* Dextrose 50 % in Water (Vial) 50 ML VIAL IVP PRN (05:40)
[2020-03-15] MEDS ORDERED: Naloxone 0.4 MG/ML INJ IVP PRN (05:40)
[2020-03-15] MEDS ORDERED: Dextrose Gel 15 GM/37.5 ML TUBE PO PRN ×2 (05:40)
[2020-03-15] MEDS ORDERED: Acetaminophen 325 MG TABLET PO PRN (05:40)
[2020-03-15] MEDS ORDERED: Vancomycin 1,750 MG in 0.9 % Sodium Chloride 250 ML IVPB SCH (07:00)
[2020-03-15] MEDS: Piperacillin/Tazobactam 3.375 GM in 0.9 % Sodium Chloride Mini Bag 100 ML IVPB SCH ×2 (07:45→15:34)
[2020-03-15] MEDS: Insulin LISPRO 300 UNITS/3 ML VIAL SQ SCH ×3 (07:46→16:43)
[2020-03-15 08:48] LABS: INR 1.2; Prothrombin Time 13.6 Seconds (9.4-12.1)
[2020-03-15 08:50] LABS: Activated Partial Thrombo Time 34.9 Seconds (26.0-36.0); Estimated Average Glucose 189 mg/dl
[2020-03-15] MEDS: Gabapentin 400 MG CAPSULE PO SCH ×3 (11:05→20:04)
[2020-03-15] MEDS: Aspirin Enteric Coated 81 MG Tablet PO SCH (11:05)
[2020-03-15] MEDS: amLODIPine 5 MG TABLET PO SCH (11:05)
[2020-03-15] MEDS: *HR* Heparin 5,000 UNIT/ML VIAL SQ SCH ×2 (13:42→20:05)
[2020-03-15] MEDS: lisinopriL 10 MG TABLET PO SCH (13:42)
[2020-03-15] MEDS: *HR* OxyCODONE/APAP 10/325 TABLET PO PRN ×2 (17:57→22:24)
[2020-03-15] MEDS: Vancomycin 1,750 MG/517.5 ML IV.SOLN IVPB SCH (20:05)
[2020-03-15] MEDS ORDERED: Insulin LISPRO 300 UNITS/3 ML VIAL SQ SCH (21:00)
[2020-03-16] MEDS: Piperacillin/Tazobactam 3.375 GM in 0.9 % Sodium Chloride Mini Bag 100 ML IVPB SCH ×3 (00:40→16:21)
[2020-03-16] MEDS: *HR* Heparin 5,000 UNIT/ML VIAL SQ SCH ×3 (06:02→20:02)
[2020-03-16] MEDS: *HR* OxyCODONE/APAP 10/325 TABLET PO PRN ×3 (06:29→17:32)
[2020-03-16 07:11] LABS: Basophils % 0.2 %; Eosinophils % 0.3 %; Hematocrit 37.8 % (37.5-50.1); Immature Granulocytes % 0.7 % (0-4); Lymphocytes # 1.3 K/mcL (0.6-4.6); Lymphocytes % 10.2 %; Mean Corpuscular HGB Conc 31.7 g/dL (31.6-35.5); Mean Corpuscular Hemoglobin 27.8 pg (28.0-33.3); Mean Corpuscular Volume 87.7 fL (83.0-100.0); Mean Platelet Volume 10.3 fL (9.4-12.4); Monocytes # 1.3 K/mcL (0.0-1.3); Monocytes % 10.6 %; Neutrophils # 9.6 K/mcL (1.6-8.9); Platelet Count 247 K/mcL (140-400); Red Blood Count 4.31 M/mcL (4.19-5.50); Red Cell Distribution Width 13.9 % (11.5-14.5); White Blood Count 12.3 K/mcL (4.3-11.1)
[2020-03-16 07:34] LABS: BUN/Creatinine Ratio 28 (6-26); Blood Urea Nitrogen 24 mg/dL (8-23); Calcium 9.3 mg/dL (8.6-10.3); Carbon Dioxide 25 mEq/L (23-29); Chloride 103 mEq/L (98-107); Glucose 181 mg/dL (70-105); Osmolality,Calculated 295 (280-300); Phosphorous 2.7 mg/dL (2.7-4.5); Potassium 3.1 mEq/L (3.5-5.1); Sodium 138 mEq/L (136-145); eGFR For African Americans > 60 (> 60); eGFR For Non-African Americans > 60 (> 60)
[2020-03-16] MEDS: Vancomycin 1,750 MG/517.5 ML IV.SOLN IVPB SCH (08:08)
[2020-03-16] MEDS: Insulin LISPRO 300 UNITS/3 ML VIAL SQ SCH ×4 (08:09→16:22)
[2020-03-16] MEDS: Aspirin Enteric Coated 81 MG Tablet PO SCH (08:09)
[2020-03-16] MEDS: amLODIPine 5 MG TABLET PO SCH (08:09)
[2020-03-16] MEDS: Gabapentin 400 MG CAPSULE PO SCH ×3 (08:09→20:01)
[2020-03-16] MEDS: lisinopriL 10 MG TABLET PO SCH (08:10)
[2020-03-16] MEDS ORDERED: Insulin LISPRO 300 UNITS/3 ML VIAL SQ SCH ×2 (11:18→21:00)
[2020-03-16] MEDS ORDERED: Morphine Sulfate 2 MG/ML SYRINGE IVP ONE (21:27)
[2020-03-17] MEDS: *HR* OxyCODONE/APAP 10/325 TABLET PO PRN ×4 (00:04→13:45)
[2020-03-17] MEDS: Piperacillin/Tazobactam 3.375 GM in 0.9 % Sodium Chloride Mini Bag 100 ML IVPB SCH ×2 (00:10→07:47)
[2020-03-17 04:37] LABS: Basophils % 0.4 %; Eosinophils # 0.1 K/mcL (0.0-0.6); Eosinophils % 0.7 %; Hematocrit 37.2 % (37.5-50.1); Hemoglobin 11.7 g/dL (12.9-16.9); Immature Granulocytes % 0.9 % (0-4); Lymphocytes # 1.4 K/mcL (0.6-4.6); Lymphocytes % 13.6 %; Mean Corpuscular HGB Conc 31.5 g/dL (31.6-35.5); Mean Corpuscular Hemoglobin 28.9 pg (28.0-33.3); Mean Corpuscular Volume 91.9 fL (83.0-100.0); Mean Platelet Volume 10.1 fL (9.4-12.4); Monocytes % 9.9 %; Neutrophils # 7.4 K/mcL (1.6-8.9); Platelet Count 260 K/mcL (140-400); Red Blood Count 4.05 M/mcL (4.19-5.50); Segmented Neutrophils % 74.5 %; White Blood Count 9.9 K/mcL (4.3-11.1)
[2020-03-17 05:02] LABS: BUN/Creatinine Ratio 30 (6-26); Blood Urea Nitrogen 25 mg/dL (8-23); Calcium 8.7 mg/dL (8.6-10.3); Carbon Dioxide 26 mEq/L (23-29); Chloride 103 mEq/L (98-107); Glucose 279 mg/dL (70-105); Magnesium 1.8 mg/dL (1.6-2.6); Osmolality,Calculated 298 (280-300); Phosphorous 2.9 mg/dL (2.7-4.5); Potassium 3.5 mEq/L (3.5-5.1); Sodium 137 mEq/L (136-145); eGFR For African Americans > 60 (> 60); eGFR For Non-African Americans > 60 (> 60)
[2020-03-17] MEDS: *HR* Heparin 5,000 UNIT/ML VIAL SQ SCH ×2 (06:11→13:48)
[2020-03-17] MEDS: Gabapentin 400 MG CAPSULE PO SCH ×2 (07:42→13:44)
[2020-03-17] MEDS: lisinopriL 10 MG TABLET PO SCH (07:42)
[2020-03-17] MEDS: amLODIPine 5 MG TABLET PO SCH (07:42)
[2020-03-17] MEDS: Aspirin Enteric Coated 81 MG Tablet PO SCH (07:42)
[2020-03-17] MEDS: Insulin LISPRO 300 UNITS/3 ML VIAL SQ SCH ×2 (07:45→11:32)
[2020-03-17] MEDS ORDERED: Insulin DETEMIR 100 UNIT/ML X5UNITS SQ SCH (13:30)
[2020-03-17] MEDS ORDERED: lisinopriL 10 MG TABLET PO ONE (15:15)
[2020-03-17 16:10] VITALS: BP 152/86
[2020-03-18] MEDS ORDERED: lisinopriL 20 MG TABLET PO SCH (09:00)
[2020-03-18] MEDS ORDERED: lisinopriL 10 MG TABLET PO ONE (13:16)
== END 2020-03-17 16:32 | disposition home health service (06) ==
LOC: 3BNU 00:53 → EMEROOARM 00:53 → SUATTDRO 05:33 → 3BNU 06:02
PROVIDERS: ADMIT Internal Medicine; ATTEND Internal Medicine

== ENCOUNTER 2020-12-30 20:35 | Inpatient (IN) ==
[2020-12-30] MEDS ORDERED: Isovue-370 500 ML BOTTLE IVP ONE (22:01)
[2020-12-30] MEDS ORDERED: Ipratropium/Albuterol Neb 3 ML IH ONE (22:02)
[2020-12-30 22:05] LABS: Basophils # 0.1 K/mcL (0.0-0.2); Basophils % 0.6 %; Eosinophils # 0.2 K/mcL (0.0-0.6); Eosinophils % 1.8 %; Hematocrit 40.7 % (37.5-50.1); Hemoglobin 12.6 g/dL (12.9-16.9); Immature Granulocytes % 0.4 % (0-4); Lymphocytes % 11.5 %; Mean Corpuscular Hemoglobin 28.4 pg (28.0-33.3); Mean Corpuscular Volume 91.7 fL (83.0-100.0); Monocytes # 0.8 K/mcL (0.0-1.3); Monocytes % 9.6 %; Neutrophils # 6.3 K/mcL (1.6-8.9); Platelet Count 191 K/mcL (140-400); Red Blood Count 4.44 M/mcL (4.19-5.50); Red Cell Distribution Width 13.2 % (11.5-14.5); Segmented Neutrophils % 76.1 %; White Blood Count 8.2 K/mcL (4.3-11.1)
[2020-12-30] MEDS ORDERED: methylPREDNISolone 125 MG/2 ML VIAL IVP ONE (22:05)
[2020-12-30 22:14] LABS: INR 1.2; Prothrombin Time 13.3 Seconds (9.4-12.1)
[2020-12-30 22:26] LABS: BUN/Creatinine Ratio 30 (6-26); Blood Urea Nitrogen 24 mg/dL (8-23); Calcium 9.1 mg/dL (8.6-10.3); Carbon Dioxide 26 mEq/L (23-29); Chloride 106 mEq/L (98-107); Glucose 165 mg/dL (70-105); Osmolality,Calculated 296 (280-300); Potassium 3.7 mEq/L (3.5-5.1); Sodium 139 mEq/L (136-145); Troponin I < 0.03 ng/mL (< 0.04); eGFR For African Americans > 60 (> 60); eGFR For Non-African Americans > 60 (> 60)
[2020-12-30 22:43] LABS: Adenovirus Not Detected (Not Detect); Bordetella Pertussis Not Detected (Not Detect); Chlamydophila pneumoniae Not Detected (Not Detect); Coronavirus 229E Not Detected (Not Detect); Coronavirus HKU1 Not Detected (Not Detect); Coronavirus NL63 Not Detected (Not Detect); Coronavirus OC43 Not Detected (Not Detect); Human Metapneumovirus Not Detected (Not Detect); Human Rhinovirus/Enterovirus Not Detected (Not Detect); Influenza A Subtype 2009 H1 Not Detected (Not Detect); Influenza B Not Detected (Not Detect); Mycoplasma pneumoniae Not Detected (Not Detect); Parainfluenza Virus 1 Not Detected (Not Detect); Parainfluenza Virus 2 Not Detected (Not Detect); Parainfluenza Virus 3 Not Detected (Not Detect); Parainfluenza Virus 4 Not Detected (Not Detect); Respiratory Syncytial Virus Not Detected (Not Detect); SARS-CoV-2 Not Detected (Not Detect)
[2020-12-30] MEDS ORDERED: Furosemide 40 MG/4 ML VIAL IVP ONE (22:43)
[2020-12-30] MEDS ORDERED: *HR* Heparin 5,000 UNIT/ML VIAL IVP ONE (22:50)
[2020-12-30] MEDS ORDERED: *HR* Heparin 5,000 UNIT/ML VIAL IVP PRN ×2 (22:50)
[2020-12-30] MEDS: Nitroglycerin 0.4 MG TAB.SUBL SL SCH ×2 (22:58→23:45)
[2020-12-30] MEDS ORDERED: Heparin 25,000UNIT/250ML 1/2NS 25,000 UNIT/250 ML IV.SOLN IVC SCH (23:00)
[2020-12-30 23:06] LABS: ABG Base Excess 0 mEq/L (-2 to 3); ABG HCO3 26 mEq/L (21-27); ABG Oxygen Saturation 98 % (95-98); ABG PCO2 46 mmHg (35-45); ABG PH 7.36 pH Units (7.32-7.45); ABG PO2 109 mmHg (85-104); ABG TCO2 28 mEq/L (20-26)
[2020-12-31] MEDS ORDERED: Naloxone 0.4 MG/ML INJ IVP PRN (01:18)
[2020-12-31] MEDS ORDERED: Ondansetron 4 MG/2 ML VIAL IVP PRN (01:18)
[2020-12-31] MEDS ORDERED: Acetaminophen 325 MG TABLET PO PRN (01:18)
[2020-12-31] MEDS ORDERED: Perflutren Lipid Microsphere 1.3 ML in 0.9 % Sodium Chloride 8.7 ML IVP PRN (01:24)
[2020-12-31] MEDS ORDERED: D5% in Water 1,000 ML IVC PRN (01:26)
[2020-12-31] MEDS ORDERED: *HR* Dextrose 50 % in Water (Vial) 50 ML VIAL IVP PRN (01:26)
[2020-12-31] MEDS ORDERED: Dextrose Gel 15 GM/37.5 ML TUBE PO PRN ×2 (01:26)
[2020-12-31] MEDS ORDERED: Isovue-370 500 ML BOTTLE IVP ONE (02:38)
[2020-12-31] MEDS: Insulin LISPRO 300 UNITS/3 ML VIAL SUBQ SCH ×5 (03:08→19:47)
[2020-12-31] MEDS ORDERED: methylPREDNISolone 125 MG/2 ML VIAL IVP ONE (03:19)
[2020-12-31 05:43] LABS: Bilirubin,Urine Negative (Negative); Blood,Urine Negative (Negative); Clarity,Urine Clear (Clear); Color,Urine Light-Yellow (Yellow); Glucose,Urine (UA) 70 mg/dL (Normal); Ketones,Urine Negative (Negative); Leukocyte Esterase,Urine Negative (Negative); Mucus,Urine Few per lpf (None-Few); Nitrite,Urine Negative (Negative); PH,Urine 5.5 pH Units (5.0-8.0); Protein,Urine Negative (Neg-Trace); RBC,Urine 0-3 per hpf (0-3); Specific Gravity,Urine 1.015 (1.010-1.025); Squamous Epithelial Cell,Urine Few per hpf (None-Few); Urobilinogen,Urine Normal (Normal); WBC,Urine 0-3 per hpf (0-3)
[2020-12-31 05:59] LABS: Amphetamine Screen,Urine Negative ng/mL (Cutoff=1000); Barbiturate Screen,Urine Negative ng/mL (Cutoff=200); Benzodiazepines Screen,Urine Negative ng/mL (Cutoff=300); Cannabinoid Screen,Urine Negative ng/mL (Cutoff = 50); Cocaine Screen,Urine Negative ng/mL (Cutoff= 300); Opiate Screen,Urine Negative ng/mL (Cutoff=300); Phencyclidine Screen,Urine Negative ng/mL (Cutoff=25)
[2020-12-31 06:34] LABS: Basophils % 0.3 %; Hematocrit 38.5 % (37.5-50.1); Hemoglobin 11.9 g/dL (12.9-16.9); Immature Granulocytes % 0.5 % (0-4); Lymphocytes # 0.3 K/mcL (0.6-4.6); Lymphocytes % 5.6 %; Mean Corpuscular HGB Conc 30.9 g/dL (31.6-35.5); Mean Corpuscular Hemoglobin 28.1 pg (28.0-33.3); Mean Platelet Volume 10.2 fL (9.4-12.4); Monocytes # 0.1 K/mcL (0.0-1.3); Monocytes % 1.5 %; Neutrophils # 5.6 K/mcL (1.6-8.9); Platelet Count 207 K/mcL (140-400); Red Blood Count 4.23 M/mcL (4.19-5.50); Red Cell Distribution Width 13.2 % (11.5-14.5); Segmented Neutrophils % 92.1 %; White Blood Count 6.1 K/mcL (4.3-11.1)
[2020-12-31 07:08] LABS: Alanine Aminotransferase 74 Units/L (7-52); Albumin 4.1 g/dL (3.5-5.7); Albumin/Globulin Ratio 1.5 (1.1-2.2); Alkaline Phosphatase 142 Units/L (34-104); Aspartate Amino Transferase 33 Units/L (13-39); BUN/Creatinine Ratio 29 (6-26); Blood Urea Nitrogen 23 mg/dL (8-23); Calcium 8.7 mg/dL (8.6-10.3); Carbon Dioxide 27 mEq/L (23-29); Chloride 103 mEq/L (98-107); Globulin 2.8 g/dL (2.4-3.5); Glucose 224 mg/dL (70-105); Magnesium 1.9 mg/dL (1.6-2.6); Osmolality,Calculated 297 (280-300); Potassium 3.5 mEq/L (3.5-5.1); Sodium 138 mEq/L (136-145); Total Protein 6.9 g/dL (6.4-8.9); Troponin I < 0.03 ng/mL (< 0.04); eGFR For African Americans > 60 (> 60); eGFR For Non-African Americans > 60 (> 60)
[2020-12-31 07:10] LABS: Thyroid Stimulating Hormone 0.177 mcIU/mL (0.340-5.600)
[2020-12-31] MEDS: Furosemide 40 MG/4 ML VIAL IVP SCH ×2 (08:28→19:47)
[2020-12-31] MEDS: niCARdipine 20 MG/200 ML MLS IVC SCH ×4 (12:09→20:49)
[2020-12-31 12:49] LABS: Estimated Average Glucose 183 mg/dl
[2020-12-31] MEDS ORDERED: Metoprolol XL (24 HR) Succ 25 MG TAB.ER.24H PO SCH (14:45)
[2020-12-31] MEDS: *HR* Heparin 5,000 UNIT/ML VIAL SQ SCH ×2 (16:50→21:31)
[2020-12-31] MEDS: amLODIPine 5 MG TABLET PO SCH (16:51)
[2020-12-31] MEDS: Gabapentin 400 MG CAPSULE PO SCH (19:47)
[2021-01-01 02:42] LABS: Basophils % 0.2 %; Eosinophils % 0.1 %; Hematocrit 38.9 % (37.5-50.1); Hemoglobin 11.9 g/dL (12.9-16.9); Immature Granulocytes % 0.8 % (0-4); Lymphocytes # 0.8 K/mcL (0.6-4.6); Lymphocytes % 5.8 %; Mean Corpuscular HGB Conc 30.6 g/dL (31.6-35.5); Mean Corpuscular Hemoglobin 27.7 pg (28.0-33.3); Mean Corpuscular Volume 90.5 fL (83.0-100.0); Mean Platelet Volume 10.4 fL (9.4-12.4); Monocytes # 1.3 K/mcL (0.0-1.3); Monocytes % 9.2 %; Neutrophils # 11.9 K/mcL (1.6-8.9); Platelet Count 225 K/mcL (140-400); Red Cell Distribution Width 13.4 % (11.5-14.5); Segmented Neutrophils % 83.9 %; White Blood Count 14.2 K/mcL (4.3-11.1)
[2021-01-01 02:59] LABS: BUN/Creatinine Ratio 34 (6-26); Blood Urea Nitrogen 35 mg/dL (8-23); Calcium 8.8 mg/dL (8.6-10.3); Carbon Dioxide 26 mEq/L (23-29); Chloride 103 mEq/L (98-107); Glucose 212 mg/dL (70-105); Osmolality,Calculated 302 (280-300); Potassium 3.5 mEq/L (3.5-5.1); Sodium 139 mEq/L (136-145); eGFR For African Americans > 60 (> 60); eGFR For Non-African Americans > 60 (> 60)
[2021-01-01] MEDS: *HR* Heparin 5,000 UNIT/ML VIAL SQ SCH ×3 (05:27→23:43)
[2021-01-01] MEDS: amLODIPine 5 MG TABLET PO SCH (07:51)
[2021-01-01] MEDS: Metoprolol XL (24 HR) Succ 50 MG TAB.ER.24H PO SCH (07:51)
[2021-01-01] MEDS: Gabapentin 400 MG CAPSULE PO SCH ×3 (07:51→20:14)
[2021-01-01] MEDS: Insulin LISPRO 300 UNITS/3 ML VIAL SUBQ SCH ×4 (07:52→20:08)
[2021-01-01] MEDS: Furosemide 40 MG/4 ML VIAL IVP SCH (07:54)
[2021-01-01] MEDS: Aspirin Enteric Coated 81 MG Tablet PO SCH (07:56)
[2021-01-01] MEDS: niCARdipine 20 MG/200 ML MLS IVC SCH ×2 (17:00→20:08)
[2021-01-01] MEDS ORDERED: Furosemide 40 MG/4 ML VIAL IVP SCH (21:00)
[2021-01-02 03:30] LABS: Basophils # 0.1 K/mcL (0.0-0.2); Basophils % 0.6 %; Eosinophils # 0.1 K/mcL (0.0-0.6); Eosinophils % 1.2 %; Hematocrit 42.7 % (37.5-50.1); Hemoglobin 12.8 g/dL (12.9-16.9); Immature Granulocytes % 0.6 % (0-4); Lymphocytes # 1.8 K/mcL (0.6-4.6); Lymphocytes % 17.6 %; Mean Corpuscular Hemoglobin 27.9 pg (28.0-33.3); Mean Platelet Volume 10.5 fL (9.4-12.4); Neutrophils # 7.2 K/mcL (1.6-8.9); Platelet Count 227 K/mcL (140-400); Red Blood Count 4.59 M/mcL (4.19-5.50); Red Cell Distribution Width 13.7 % (11.5-14.5); White Blood Count 10.3 K/mcL (4.3-11.1)
[2021-01-02 03:53] LABS: BUN/Creatinine Ratio 29 (6-26); Blood Urea Nitrogen 30 mg/dL (8-23); Calcium 8.6 mg/dL (8.6-10.3); Carbon Dioxide 30 mEq/L (23-29); Chloride 99 mEq/L (98-107); Glucose 257 mg/dL (70-105); Osmolality,Calculated 303 (280-300); Potassium 3.2 mEq/L (3.5-5.1); Sodium 139 mEq/L (136-145); eGFR For African Americans > 60 (> 60); eGFR For Non-African Americans > 60 (> 60)
[2021-01-02] MEDS: *HR* Heparin 5,000 UNIT/ML VIAL SQ SCH ×3 (06:35→21:03)
[2021-01-02] MEDS: niCARdipine 20 MG/200 ML MLS IVC SCH ×2 (06:51→09:19)
[2021-01-02] MEDS: Furosemide 40 MG/4 ML VIAL IVP SCH ×2 (09:20→20:01)
[2021-01-02] MEDS: Gabapentin 400 MG CAPSULE PO SCH ×3 (09:21→20:01)
[2021-01-02] MEDS: amLODIPine 5 MG TABLET PO SCH (09:21)
[2021-01-02] MEDS: Metoprolol XL (24 HR) Succ 50 MG TAB.ER.24H PO SCH (09:21)
[2021-01-02] MEDS: Aspirin Enteric Coated 81 MG Tablet PO SCH (09:21)
[2021-01-02] MEDS: Insulin LISPRO 300 UNITS/3 ML VIAL SUBQ SCH ×4 (09:22→21:02)
[2021-01-02] MEDS ORDERED: Nitroglycerin 0.4 MG TAB.SUBL SL PRN (12:20)
[2021-01-02] MEDS: Isosorbide MONOnitrate (24 HR) 30 MG TAB.ER.24H PO SCH (15:12)
[2021-01-02] MEDS: carvediloL 6.25 MG TABLET PO SCH (16:54)
[2021-01-02] MEDS: *HR* OxyCODONE/APAP 10/325 TABLET PO PRN (21:04)
[2021-01-03 05:24] LABS: Basophils # 0.1 K/mcL (0.0-0.2); Basophils % 0.8 %; Eosinophils # 0.2 K/mcL (0.0-0.6); Eosinophils % 1.7 %; Hematocrit 43.5 % (37.5-50.1); Hemoglobin 13.3 g/dL (12.9-16.9); Immature Granulocytes % 0.9 % (0-4); Lymphocytes # 1.6 K/mcL (0.6-4.6); Lymphocytes % 17.6 %; Mean Corpuscular HGB Conc 30.6 g/dL (31.6-35.5); Mean Corpuscular Hemoglobin 28.1 pg (28.0-33.3); Mean Platelet Volume 10.3 fL (9.4-12.4); Monocytes # 1.1 K/mcL (0.0-1.3); Monocytes % 11.7 %; Neutrophils # 6.3 K/mcL (1.6-8.9); Platelet Count 208 K/mcL (140-400); Red Blood Count 4.73 M/mcL (4.19-5.50); Red Cell Distribution Width 13.3 % (11.5-14.5); Segmented Neutrophils % 67.3 %; White Blood Count 9.3 K/mcL (4.3-11.1)
[2021-01-03 05:42] LABS: BUN/Creatinine Ratio 25 (6-26); Blood Urea Nitrogen 28 mg/dL (8-23); Calcium 8.9 mg/dL (8.6-10.3); Carbon Dioxide 31 mEq/L (23-29); Chloride 99 mEq/L (98-107); Glucose 318 mg/dL (70-105); Osmolality,Calculated 304 (280-300); Potassium 3.3 mEq/L (3.5-5.1); Sodium 138 mEq/L (136-145); eGFR For African Americans > 60 (> 60); eGFR For Non-African Americans > 60 (> 60)
[2021-01-03] MEDS: *HR* Heparin 5,000 UNIT/ML VIAL SQ SCH (05:42)
[2021-01-03 07:20] VITALS: BP 171/78
[2021-01-03] MEDS ORDERED: Furosemide 40 MG TABLET PO SCH (08:00)
[2021-01-03] MEDS: carvediloL 6.25 MG TABLET PO SCH (08:06)
[2021-01-03] MEDS: *HR* OxyCODONE/APAP 10/325 TABLET PO PRN (08:06)
[2021-01-03] MEDS: amLODIPine 5 MG TABLET PO SCH (08:06)
[2021-01-03] MEDS: Isosorbide MONOnitrate (24 HR) 30 MG TAB.ER.24H PO SCH (08:06)
[2021-01-03] MEDS: Aspirin Enteric Coated 81 MG Tablet PO SCH (08:06)
[2021-01-03] MEDS: Insulin LISPRO 300 UNITS/3 ML VIAL SUBQ SCH (08:07)
[2021-01-03] MEDS: Gabapentin 400 MG CAPSULE PO SCH (08:07)
== END 2021-01-03 12:59 | disposition home or self-care (01) | DRG 291 ==
LOC: EMEROOARM 20:35 → 2NNU 20:35 → SUATTDRO 12-31 00:21 → 2NNU 12-31 01:48 → 2ANU 01-02 16:01
PROVIDERS: ADMIT Internal Medicine; ATTEND Family Medicine

== ENCOUNTER 2022-05-12 09:10 | Inpatient (IN) ==
[2022-05-12] MEDS ORDERED: Furosemide 40 MG/4 ML VIAL IVP ONE (09:22)
[2022-05-12 09:35] LABS: Basophils # 0.1 K/mcL (0.0-0.2); Basophils % 0.6 %; Eosinophils # 0.2 K/mcL (0.0-0.6); Eosinophils % 1.4 %; Hematocrit 47.7 % (37.5-50.1); Hemoglobin 14.3 g/dL (12.9-16.9); Immature Granulocytes % 0.7 % (0-4); Lymphocytes # 1.9 K/mcL (0.6-4.6); Lymphocytes % 11.3 %; Mean Platelet Volume 10.1 fL (9.4-12.4); Monocytes # 1.2 K/mcL (0.0-1.3); Monocytes % 6.9 %; Neutrophils # 13.4 K/mcL (1.6-8.9); Platelet Count 384 K/mcL (140-400); Red Cell Distribution Width 13.4 % (11.5-14.5); Segmented Neutrophils % 79.1 %; White Blood Count 16.9 K/mcL (4.3-11.1)
[2022-05-12 09:41] LABS: ABG Base Excess 2 mEq/L (-2 to 3); ABG HCO3 32 mEq/L (21-27); ABG Oxygen Saturation 100 % (95-98); ABG PCO2 72 mmHg (35-45); ABG PH 7.26 pH Units (7.32-7.45); ABG PO2 194 mmHg (85-104); ABG TCO2 34 mEq/L (20-26)
[2022-05-12 09:43] LABS: INR 1.2; Prothrombin Time 13.6 Seconds (9.4-12.1)
[2022-05-12 09:45] LABS: Activated Partial Thrombo Time 38.3 Seconds (26.0-36.0)
[2022-05-12 09:54] LABS: Alanine Aminotransferase 46 Units/L (7-52); Albumin 4.4 g/dL (3.5-5.7); Albumin/Globulin Ratio 1.1 (1.1-2.2); Alkaline Phosphatase 160 Units/L (34-104); Aspartate Amino Transferase 24 Units/L (13-39); BUN/Creatinine Ratio 26 (6-26); Bilirubin,Direct 0.2 mg/dL (0.0-0.2); Bilirubin,Indirect 0.5 mg/dL (0.0-1.0); Bilirubin,Total 0.7 mg/dL (0.3-1.0); Blood Urea Nitrogen 21 mg/dL (8-23); Calcium 9.4 mg/dL (8.6-10.3); Carbon Dioxide 29 mEq/L (23-29); Chloride 100 mEq/L (98-107); Glucose 281 mg/dL (70-105); Osmolality,Calculated 297 (280-300); Potassium 3.8 mEq/L (3.5-5.1); Sodium 137 mEq/L (136-145); Total Protein 8.4 g/dL (6.4-8.9); Troponin I 0.03 ng/mL (< 0.04)
[2022-05-12 10:36] LABS: Influenza A PCR Negative (Negative); Influenza B PCR Negative (Negative); Resp. Syncytial Virus PCR Negative (Negative)
[2022-05-12 10:52] LABS: SARS-CoV-2 by PCR (In House) Positive (Negative)
[2022-05-12 11:25] LABS: C-Reactive Protein 30 mg/L (Less than 10)
[2022-05-12 11:42] LABS: Ferritin 82 ng/mL (20-250)
[2022-05-12] MEDS ORDERED: Ondansetron 4 MG/2 ML VIAL IVP PRN (12:58)
[2022-05-12] MEDS ORDERED: *HR* OxyCODONE Immed Rel 5 MG TABLET PO PRN (12:58)
[2022-05-12] MEDS ORDERED: *HR* HYDROcodone/Acet 5/325 mg TABLET PO PRN (12:58)
[2022-05-12] MEDS ORDERED: Melatonin 3 MG TABLET PO PRN (12:58)
[2022-05-12] MEDS ORDERED: Acetaminophen 325 MG TABLET PO PRN (12:58)
[2022-05-12] MEDS ORDERED: Naloxone 0.4 MG/ML INJ IVP PRN (12:58)
[2022-05-12] MEDS ORDERED: *HR* Dextrose 50 % in Water (Syg) 50 ML SYRINGE IVP PRN (13:55)
[2022-05-12] MEDS ORDERED: D5% in Water 1,000 ML IVC PRN (13:55)
[2022-05-12] MEDS ORDERED: Dextrose Gel 15 GM/37.5 ML TUBE PO PRN ×2 (13:55)
[2022-05-12] MEDS ORDERED: Vancomycin 1,750 MG/517.5 ML IV.SOLN IVPB ONE (13:59)
[2022-05-12] MEDS ORDERED: Vancomycin 1,750 MG in 0.9 % Sodium Chloride 250 ML IVPB SCH (14:00)
[2022-05-12] MEDS: Cefepime HCl 2,000 MG in 0.9 % Sodium Chloride Mini Bag 100 ML IVPB SCH ×2 (17:23→22:27)
[2022-05-12] MEDS: *HR* Enoxaparin 120 MG/0.8 ML SYRINGE SQ SCH (17:32)
[2022-05-12] MEDS: Insulin LISPRO 300 UNITS/3 ML VIAL SUBQ SCH ×2 (17:47→22:02)
[2022-05-12] MEDS: Furosemide 40 MG/4 ML VIAL IVP SCH (22:04)
[2022-05-12] MEDS: Insulin DETEMIR 100 UNIT/ML X5UNITS SUBQ SCH (22:33)
[2022-05-13] MEDS: Vancomycin 1,250 MG/262.5 ML IV.SOLN IVPB SCH ×2 (03:11→15:35)
[2022-05-13 03:36] LABS: Basophils % 0.1 %; Hematocrit 39.4 % (37.5-50.1); Immature Granulocytes % 0.6 % (0-4); Lymphocytes # 0.4 K/mcL (0.6-4.6); Lymphocytes % 4.8 %; Mean Corpuscular Hemoglobin 27.3 pg (28.0-33.3); Mean Corpuscular Volume 88.1 fL (83.0-100.0); Mean Platelet Volume 10.2 fL (9.4-12.4); Monocytes # 0.7 K/mcL (0.0-1.3); Monocytes % 7.8 %; Neutrophils # 7.8 K/mcL (1.6-8.9); Platelet Count 289 K/mcL (140-400); Red Blood Count 4.47 M/mcL (4.19-5.50); Red Cell Distribution Width 13.5 % (11.5-14.5); Segmented Neutrophils % 86.7 %
[2022-05-13 03:42] LABS: Hemoglobin 12.2 g/dL (12.9-16.9)
[2022-05-13 03:50] LABS: Estimated Average Glucose 223 mg/dl; Hemoglobin A1C 9.4 %
[2022-05-13 04:14] LABS: Calcium 8.7 mg/dL (8.6-10.3); Magnesium 1.8 mg/dL (1.6-2.6); Potassium 4.1 mEq/L (3.5-5.1)
[2022-05-13] MEDS: *HR* Enoxaparin 120 MG/0.8 ML SYRINGE SQ SCH ×2 (05:23→16:48)
[2022-05-13] MEDS: Cefepime HCl 2,000 MG in 0.9 % Sodium Chloride Mini Bag 100 ML IVPB SCH ×3 (08:12→23:45)
[2022-05-13] MEDS: Furosemide 40 MG/4 ML VIAL IVP SCH ×2 (08:13→15:35)
[2022-05-13] MEDS: Insulin LISPRO 300 UNITS/3 ML VIAL SUBQ SCH ×4 (08:14→20:36)
[2022-05-13] MEDS: Insulin DETEMIR 100 UNIT/ML X5UNITS SUBQ SCH ×2 (08:14→20:36)
[2022-05-13] MEDS: Sennosides/Docusate Sodium TABLET PO SCH (14:31)
[2022-05-13] MEDS ORDERED: amLODIPine 5 MG TABLET PO ONE (16:11)
[2022-05-13] MEDS: carvediloL 6.25 MG TABLET PO SCH (16:49)
[2022-05-14 03:10] LABS: Basophils % 0.2 %; Eosinophils % 0.1 %; Hematocrit 37.3 % (37.5-50.1); Hemoglobin 11.8 g/dL (12.9-16.9); Immature Granulocytes % 0.9 % (0-4); Lymphocytes # 0.8 K/mcL (0.6-4.6); Lymphocytes % 6.5 %; Mean Corpuscular HGB Conc 31.6 g/dL (31.6-35.5); Mean Corpuscular Hemoglobin 27.5 pg (28.0-33.3); Mean Corpuscular Volume 86.9 fL (83.0-100.0); Mean Platelet Volume 10.3 fL (9.4-12.4); Monocytes % 7.8 %; Neutrophils # 10.3 K/mcL (1.6-8.9); Platelet Count 251 K/mcL (140-400); Red Blood Count 4.29 M/mcL (4.19-5.50); Red Cell Distribution Width 13.6 % (11.5-14.5); Segmented Neutrophils % 84.5 %; White Blood Count 12.2 K/mcL (4.3-11.1)
[2022-05-14 03:28] LABS: Calcium 8.6 mg/dL (8.6-10.3); Potassium 3.8 mEq/L (3.5-5.1)
[2022-05-14] MEDS: Vancomycin 1,250 MG/262.5 ML IV.SOLN IVPB SCH (05:03)
[2022-05-14] MEDS: *HR* Enoxaparin 120 MG/0.8 ML SYRINGE SQ SCH ×2 (05:04→16:57)
[2022-05-14] MEDS: Cefepime HCl 2,000 MG in 0.9 % Sodium Chloride Mini Bag 100 ML IVPB SCH (08:12)
[2022-05-14] MEDS: Furosemide 40 MG/4 ML VIAL IVP SCH ×2 (08:12→16:57)
[2022-05-14] MEDS: carvediloL 6.25 MG TABLET PO SCH ×2 (08:13→16:57)
[2022-05-14] MEDS: Insulin DETEMIR 100 UNIT/ML X5UNITS SUBQ SCH ×2 (08:13→21:01)
[2022-05-14] MEDS: Aspirin Enteric Coated 81 MG Tablet PO SCH (08:13)
[2022-05-14] MEDS: amLODIPine 5 MG TABLET PO SCH (08:13)
[2022-05-14] MEDS: Insulin LISPRO 300 UNITS/3 ML VIAL SUBQ SCH ×4 (08:14→23:55)
[2022-05-14] MEDS: Sennosides/Docusate Sodium TABLET PO SCH (08:15)
[2022-05-14] MEDS: cephALEXin 500 MG CAPSULE PO SCH ×2 (16:57→21:01)
[2022-05-14] MEDS: Albumin Human 5% 12.5 GM/250 ML IV.SOLN IVC SCH (17:45)
[2022-05-14] MEDS: Doxycycline 100 MG CAPSULE PO SCH (21:01)
[2022-05-15] MEDS: Albumin Human 5% 12.5 GM/250 ML IV.SOLN IVC SCH (00:56)
[2022-05-15] MEDS: *HR* Enoxaparin 120 MG/0.8 ML SYRINGE SQ SCH (05:41)
[2022-05-15] MEDS: Furosemide 40 MG/4 ML VIAL IVP SCH ×2 (09:05→15:48)
[2022-05-15] MEDS: Insulin DETEMIR 100 UNIT/ML X5UNITS SUBQ SCH ×2 (09:06→20:09)
[2022-05-15] MEDS: amLODIPine 5 MG TABLET PO SCH (09:06)
[2022-05-15] MEDS: Doxycycline 100 MG CAPSULE PO SCH ×2 (09:06→20:06)
[2022-05-15] MEDS: carvediloL 6.25 MG TABLET PO SCH ×2 (09:06→15:47)
[2022-05-15] MEDS: Sennosides/Docusate Sodium TABLET PO SCH (09:07)
[2022-05-15] MEDS: cephALEXin 500 MG CAPSULE PO SCH ×3 (09:07→20:06)
[2022-05-15] MEDS: dexAMETHasone 4 MG TABLET PO SCH (09:07)
[2022-05-15] MEDS: Aspirin Enteric Coated 81 MG Tablet PO SCH (09:07)
[2022-05-15] MEDS: Insulin LISPRO 300 UNITS/3 ML VIAL SUBQ SCH ×4 (09:08→20:10)
[2022-05-15 10:46] LABS: Basophils % 0.1 %; Eosinophils % 0.3 %; Hematocrit 40.4 % (37.5-50.1); Hemoglobin 12.7 g/dL (12.9-16.9); Immature Granulocytes % 0.8 % (0-4); Lymphocytes # 1.1 K/mcL (0.6-4.6); Lymphocytes % 11.1 %; Mean Corpuscular HGB Conc 31.4 g/dL (31.6-35.5); Mean Corpuscular Hemoglobin 27.1 pg (28.0-33.3); Mean Corpuscular Volume 86.3 fL (83.0-100.0); Monocytes # 0.7 K/mcL (0.0-1.3); Neutrophils # 7.6 K/mcL (1.6-8.9); Platelet Count 260 K/mcL (140-400); Red Blood Count 4.68 M/mcL (4.19-5.50); Red Cell Distribution Width 13.6 % (11.5-14.5); Segmented Neutrophils % 80.7 %; White Blood Count 9.4 K/mcL (4.3-11.1)
[2022-05-15 11:04] LABS: Calcium 8.9 mg/dL (8.6-10.3); Potassium 3.1 mEq/L (3.5-5.1)
[2022-05-15] MEDS: Albumin 25% 12.5gm/50mL 12.5 GM/50 ML IV.SOLN IVPB SCH (15:46)
[2022-05-15] MEDS: *HR* Enoxaparin 40 MG/0.4 ML SYRINGE SQ SCH (16:43)
[2022-05-16] MEDS: Albumin 25% 12.5gm/50mL 12.5 GM/50 ML IV.SOLN IVPB SCH (00:19)
[2022-05-16 05:20] LABS: Basophils % 0.2 %; Eosinophils % 0.4 %; Hematocrit 40.2 % (37.5-50.1); Hemoglobin 12.7 g/dL (12.9-16.9); Immature Granulocytes % 0.9 % (0-4); Lymphocytes # 1.4 K/mcL (0.6-4.6); Lymphocytes % 13.1 %; Mean Corpuscular HGB Conc 31.6 g/dL (31.6-35.5); Mean Corpuscular Hemoglobin 27.2 pg (28.0-33.3); Mean Corpuscular Volume 86.1 fL (83.0-100.0); Mean Platelet Volume 10.5 fL (9.4-12.4); Monocytes % 9.5 %; Platelet Count 288 K/mcL (140-400); Red Blood Count 4.67 M/mcL (4.19-5.50); Red Cell Distribution Width 13.7 % (11.5-14.5); Segmented Neutrophils % 75.9 %; White Blood Count 10.6 K/mcL (4.3-11.1)
[2022-05-16 05:39] LABS: BUN/Creatinine Ratio 34 (6-26); Blood Urea Nitrogen 29 mg/dL (8-23); Carbon Dioxide 33 mEq/L (23-29); Chloride 97 mEq/L (98-107); Glucose 296 mg/dL (70-105); Osmolality,Calculated 301 (280-300); Potassium 3.4 mEq/L (3.5-5.1); Sodium 137 mEq/L (136-145)
[2022-05-16] MEDS: *HR* Enoxaparin 40 MG/0.4 ML SYRINGE SQ SCH ×2 (05:42→18:11)
[2022-05-16] MEDS: carvediloL 6.25 MG TABLET PO SCH ×2 (07:33→15:31)
[2022-05-16] MEDS: Furosemide 40 MG/4 ML VIAL IVP SCH ×2 (07:34→15:31)
[2022-05-16] MEDS: Insulin LISPRO 300 UNITS/3 ML VIAL SUBQ SCH ×4 (07:35→20:38)
[2022-05-16] MEDS: Sennosides/Docusate Sodium TABLET PO SCH (08:50)
[2022-05-16] MEDS: Aspirin Enteric Coated 81 MG Tablet PO SCH (08:50)
[2022-05-16] MEDS: dexAMETHasone 4 MG TABLET PO SCH (08:50)
[2022-05-16] MEDS: cephALEXin 500 MG CAPSULE PO SCH ×4 (08:50→20:38)
[2022-05-16] MEDS: amLODIPine 5 MG TABLET PO SCH (08:50)
[2022-05-16] MEDS: Doxycycline 100 MG CAPSULE PO SCH ×2 (08:50→20:38)
[2022-05-16] MEDS: Insulin DETEMIR 100 UNIT/ML X5UNITS SUBQ SCH ×2 (08:55→20:39)
[2022-05-16] MEDS: Isosorbide MONOnitrate (24 HR) 30 MG TAB.ER.24H PO SCH (09:40)
[2022-05-16] MEDS: Sacubitril/Valsartan 49/51 MG 1 TABLET PO SCH ×2 (09:40→20:38)
[2022-05-17] MEDS: *HR* Enoxaparin 40 MG/0.4 ML SYRINGE SQ SCH (05:11)
[2022-05-17 07:28] VITALS: TEMP 97.6
[2022-05-17 08:15] LABS: Basophils # 0.1 K/mcL (0.0-0.2); Basophils % 0.4 %; Eosinophils # 0.1 K/mcL (0.0-0.6); Eosinophils % 0.8 %; Hematocrit 47.7 % (37.5-50.1); Immature Granulocytes % 1.5 % (0-4); Lymphocytes # 1.9 K/mcL (0.6-4.6); Mean Corpuscular HGB Conc 31.4 g/dL (31.6-35.5); Mean Corpuscular Volume 85.8 fL (83.0-100.0); Mean Platelet Volume 9.9 fL (9.4-12.4); Monocytes # 1.3 K/mcL (0.0-1.3); Monocytes % 10.7 %; Neutrophils # 8.6 K/mcL (1.6-8.9); Platelet Count 299 K/mcL (140-400); Red Blood Count 5.56 M/mcL (4.19-5.50); Red Cell Distribution Width 13.8 % (11.5-14.5); Segmented Neutrophils % 70.6 %; White Blood Count 12.2 K/mcL (4.3-11.1)
[2022-05-17 08:35] LABS: BUN/Creatinine Ratio 32 (6-26); Blood Urea Nitrogen 26 mg/dL (8-23); Calcium 8.9 mg/dL (8.6-10.3); Carbon Dioxide 30 mEq/L (23-29); Chloride 97 mEq/L (98-107); Glucose 295 mg/dL (70-105); Osmolality,Calculated 296 (280-300); Potassium 3.3 mEq/L (3.5-5.1); Sodium 135 mEq/L (136-145)
[2022-05-17] MEDS ORDERED: carvediloL 6.25 MG TABLET PO SCH (09:00)
[2022-05-17] MEDS: Aspirin Enteric Coated 81 MG Tablet PO SCH (09:35)
[2022-05-17] MEDS: Furosemide 40 MG/4 ML VIAL IVP SCH (09:35)
[2022-05-17] MEDS: amLODIPine 5 MG TABLET PO SCH (09:35)
[2022-05-17] MEDS: Insulin DETEMIR 100 UNIT/ML X5UNITS SUBQ SCH (09:35)
[2022-05-17] MEDS: dexAMETHasone 4 MG TABLET PO SCH (09:35)
[2022-05-17] MEDS: cephALEXin 500 MG CAPSULE PO SCH ×2 (09:35→12:13)
[2022-05-17] MEDS: Isosorbide MONOnitrate (24 HR) 30 MG TAB.ER.24H PO SCH (09:35)
[2022-05-17] MEDS: Sennosides/Docusate Sodium TABLET PO SCH (09:35)
[2022-05-17] MEDS: Sacubitril/Valsartan 49/51 MG 1 TABLET PO SCH (09:35)
[2022-05-17] MEDS: Doxycycline 100 MG CAPSULE PO SCH (09:35)
[2022-05-17] MEDS: Insulin LISPRO 300 UNITS/3 ML VIAL SUBQ SCH ×2 (09:36→12:13)
[2022-05-17 11:06] VITALS: BP 121/73; PULSE 90; O2SAT 97
== END 2022-05-17 16:08 | disposition home health service (06) | DRG 871 ==
LOC: EMEROOARM 09:10 → 2NENU 09:10 → SUATTDRO 13:13 → 2NENU 14:09
PROVIDERS: ADMIT Hospitalist; ATTEND Student in an Organized Health Care Education/Training Program